=== PATIENT | male | born 1935 | race Caucasian/White ===

== ENCOUNTER 2020-12-03 09:25 | Inpatient (IN) | payer MEDICARE, SELFPAY ==
[2020-12-03] VITALS (10 sets, daily range): BP systolic 133–187; BP diastolic 61–84; PULSE 63–104; RESP 15–27; TEMP 36–38.8; O2SAT 91–100; BMI 20.1
--- NOTE | ~2020-12-03 | XR_ITS ---
EXAMINATION: XR CHEST CLINICAL INFORMATION: Cough. COMPARISON: None TECHNIQUE: Frontal view of the chest was obtained. FINDINGS: No significant abnormality is noted involving the heart, lungs, mediastinum, bony thorax or soft tissues. XR/XR chest 1V IMPRESSION: Unremarkable examination.
--- NOTE | ~2020-12-03 | XR_ITS ---
EXAMINATION: XR CHEST CLINICAL INFORMATION: Question pneumonia COMPARISON: Chest x-ray December 03, 2020 TECHNIQUE: Frontal view of the chest was obtained. FINDINGS: Cardiac silhouette is normal in size. The lungs are well aerated. There is no lobar consolidation. No pleural effusion or pneumothorax. XR/XR chest 1V IMPRESSION: Stable examination demonstrating no acute pulmonary pathology.
--- NOTE | 2020-12-03 09:34 | ECG_ITS ---
Test Reason : AMS Blood Pressure : / mmHG Vent. Rate : 100 BPM Atrial Rate : 100 BPM P-R Int : 180 ms QRS Dur : 096 ms QT Int : 336 ms P-R-T Axes : 070 068 048 degrees QTc Int : 433 ms Normal sinus rhythm Normal ECG No previous ECGs available Referred By: Edwin Bynum Electronically Signed By:VOLDOYMYR HA
--- NOTE | 2020-12-03 10:02 | ED_ITS ---
HPI - General Adult General Chief complaint: Fever Stated complaint: FALL NO INJURIES Time Seen by Provider: 12/03/20 09:54 History of Present Illness HPI narrative: THIS IS 85 YEARS OLD MALE FROM A NURSING FACILITY WITH HISTORY OF DEMENTIA SENT HERE FOR EVALUATION HE WAS FOUND FEBRILE ON ARRIVAL TO THE EMERGENCY DEPARTMENT PATIENT IS UNABLE TO GIVE ANY HISTORY BECAUSE OF THE DEMENTIA HISTORY WAS OBTAINED FROM THE GROUP HOME RECORD. THE GROUP HOME REPORTED TODAY WAS SLIDING OF THE WHEELCHAIR AND HE WAS FOUND TO BE HYPOXIC WELL Onset (ago): hour(s) (3) Radiation: non-radiation Severity: moderate Associated symptoms: malaise Related Data Home Medications Medication Instructions Recorded Confirmed Calcium + Vitamin D 600 mg PO 12/03/20 acetaminophen 650 mg PO Q6H PRN 12/03/20 12/03/20 amlodipine 7.5 mg PO DAILY 12/03/20 12/03/20 apixaban [Eliquis] 5 mg PO BID 12/03/20 12/03/20 atorvastatin [Lipitor] 40 mg PO BEDTIME 12/03/20 12/03/20 bisacodyl 10 mg CA DAILY PRN 12/03/20 12/03/20 docusate sodium [Colace] 100 mg PO DAILY 12/03/20 12/03/20 levetiracetam [Keppra] 500 mg PO BID 12/03/20 12/03/20 lisinopril 5 mg PO DAILY 12/03/20 12/03/20 magnesium hydroxide [Milk of 400 mg PO DAILY PRN 12/03/20 12/03/20 Magnesia] metoprolol tartrate 12.5 mg PO BID 12/03/20 12/03/20 oxcarbazepine 300 mg PO BID 12/03/20 12/03/20 quetiapine 25 mg PO BID 12/03/20 12/03/20 sodium phosphates [Fleet Enema] 118 ml CA DAILY PRN 12/03/20 12/03/20 trazodone 25 mg PO BEDTIME PRN 12/03/20 12/03/20 Allergies Allergy/AdvReac Type Severity Reaction Status Date / Time hydrochlorothiazide Allergy Unknown Verified 12/03/20 09:33 niacin Allergy Unknown Verified 12/03/20 09:33 nifedipine Allergy Unknown Verified 12/03/20 09:33 Review of Systems Review of Systems: Yes all other systems are reviewed and are negative Respiratory: Respiratory: Reports chest congestion and Reports cough Gastrointestinal: Gastrointestinal: Denies diarrhea, Denies loose stools and Denies nausea Neurologic: Reports system reviewed and no additional complaints, except as documented [facility] Past Medical History Medical History COPD (chronic obstructive pulmonary disease) Dementia Dysphagia Gout Hyperlipidemia Hypertension Hyponatremia Kidney disease Metabolic encephalopathy Social History Social History Advance Directives: Yes Advance Directives Information Provided: No Advance Directives on File: No Physical Exam Vital Signs: Vital Signs: Last Vital Signs Temp 100.0 F 12/03/20 11:49 Pulse 98 12/03/20 11:49 Resp 16 12/03/20 11:49 BP 164/80 H 12/03/20 11:49 Pulse Ox 96 12/03/20 11:49 Body Mass Index 20.1 Const: General: no acute distress HENMT: Head: Yes normal to inspection General nose exam: Normal external n ose present Mouth: other ( DRY ORAL MUCOSA NOTED) Neck: Neck: Yes normal visual inspection and Yes full ROM Chest: Chest palpation & inspection: normal inspection of the chest Resp: Auscultation: rhonchi Cardio: Jugular venous distension: no JVD Rate: regular rate Rhythm: regular rhythm Skin: Lesions: no lesions Rashes: no rashes Medical Decision Making Lab Data Result diagrams: 12/03/20 10:16 12/03/20 10:15 Labs: Lab Results 12/03/20 12/03/20 12/03/20 Range/Units 10:15 10:15 10:16 WBC 10.4 (4.8-10.8) X10*3/uL RBC 4.25 L (4.60-5.80) X10*6/uL Hgb 13.7 L (14.0-18.0) g/dl Hct 39.8 L (42-52) % MCV 93.6 (80-98) fL MCH 32.2 (27.0-33.0) pg MCHC 34.4 (31.0-36.0) g/dl RDW 14.3 (11.0-16.0) % Plt Count 228 (160-400) X10*3/uL MPV 9.8 (9.4-12.4) fL Immature Gran % (Auto) 0.4 (0.0-0.4) % Neut % (Auto) 87.5 H (45-73) % Lymph % (Auto) 5.0 L (20-40) % [place] % (Auto) 6.7 (2-11) % Eos % (Auto) 0.2 (0-4) % Baso % (Auto) 0.2 (0-2) % Lymph # (Auto) 0.5 L (1.2-4.9) X10*3/uL [place] # (Auto) 0.7 (0.1-1.2) X10*3/uL Eos # (Auto) 0.0 (0.0-0.4) X10*3/uL Baso # (Auto) 0.0 (0.0-0.2) X10*3/uL Abs Immat Gran (auto) 0.04 H (0.00-0.03) X10*3/uL Absolute Neuts (auto) 9.1 H (2.0-8.3) X10*3/uL Absolute Nucleated RBC 0.000 (0.0-0.012) X10*3/uL Nucleated RBC % (auto) 0.0 (0.0-0.2) /100WBC PT (9.9-13.0) SEC INR (0.9-1.1) Sodium 143 (135-145) mmol/L Potassium 3.8 (3.3-5.1) mmol/L Chloride 109 H (96-108) mmol/L Carbon Dioxide 23 (22-29) mmol/L Anion Gap 15 (12-20) BUN 30 H (9-16) mg/dL Creatinine 1.16 (0.5-1.4) mg/dL Estim Creat Clear Calc 42.1 Estimated GFR > 60 Random Glucose 136 H (60-115) mg/dL Lactic Acid 1.2 (0.5-2.0) mmol/L Calcium 9.2 (8.4-10.2) mg/dL Total Bilirubin 0.9 (0.0-1.0) mg/dL AST 16 (5-37) U/L ALT 14 (0-40) U/L Alkaline Phosphatase 76 (39-117) U/L Total Protein 6.8 (6.5-8.0) g/dL Albumin 4.0 (3.5-5.0) g/dL Urine Color Urine Appearance Urine pH (5.0-8.0) Ur Specific [place] (1.005-1.025) Urine Protein (NEG-TRACE) MG/DL Urine Glucose (UA) (NEG) MG/DL Urine Ketones (NEG) MG/DL Urine Blood (NEG) Urine Nitrite (NEG) Ur Leukocyte Esterase (NEG) Urine RBC (0) /HPF Urine WBC (0-4) /HPF Ur Squamous Epith Cells /LPF Urine Bacteria Urine Mucus /LPF 12/03/20 12/03/20 Range/Units 10:21 10:41 WBC (4.8-10.8) X10*3/uL RBC (4.60-5.80) X10*6/uL Hgb (14.0-18.0) g/dl Hct (42-52) % MCV (80-98) fL MCH (27.0-33.0) pg MCHC (31.0-36.0) g/dl RDW (11.0-16.0) % Plt Count (160-400) X10*3/uL MPV (9.4-12.4) fL Immature Gran % (Auto) (0.0-0.4) % Neut % (Auto) (45-73) % Lymph % (Auto) (20-40) % [place] % (Auto) (2-11) % Eos % (Auto) (0-4) % Baso % (Auto) (0-2) % Lymph # (Auto) (1.2-4.9) X10*3/uL [place] # (Auto) (0.1-1.2) X10*3/uL Eos # (Auto) (0.0-0.4) X10*3/uL Baso # (Auto) (0.0-0.2) X10*3/uL Abs Immat Gran (auto) (0.00-0.03) X10*3/uL Absolute Neuts (auto) (2.0-8.3) X10*3/uL Absolute Nucleated RBC (0.0-0.012) X10*3/uL Nucleated RBC % (auto) (0.0-0.2) /100WBC PT 18.8 H (9.9-13.0) SEC INR 1.6 H (0.9-1.1) Sodium (135-145) mmol/L Potassium (3.3-5.1) mmol/L Chloride (96-108) mmol/L Carbon Dioxide (22-29) mmol/L Anion Gap (12-20) BUN (9-16) mg/dL Creatinine (0.5-1.4) mg/dL Estim Creat Clear Calc Estimated GFR Random Glucose (60-115) mg/dL Lactic Acid (0.5-2.0) mmol/L Calcium (8.4-10.2) mg/dL Total Bilirubin (0.0-1.0) mg/dL AST (5-37) U/L ALT (0-40) U/L Alkaline Phosphatase (39-117) U/L Total Protein (6.5-8.0) g/dL Albumin (3.5-5.0) g/dL Urine Color YELLOW Urine Appearance CLEAR Urine pH 6.0 (5.0-8.0) Ur Specific [place] 1.025 (1.005-1.025) Urine Protein 2+ H (NEG-TRACE) MG/DL Urine Glucose (UA) NEG (NEG) MG/DL Urine Ketones NEG (NEG) MG/DL Urine Blood NEG (NEG) Urine Nitrite NEG (NEG) Ur Leukocyte Esterase NEG (NEG) Urine RBC 0 (0) /HPF Urine WBC 0-2 (0-4) /HPF Ur Squamous Epith Cells TRACE /LPF Urine Bacteria Not Reportable Urine Mucus 1+ /LPF Imaging Data Chest x-ray: Attestation: I personally reviewed and interpreted this imaging study as follows: My impression: NAD Discharge Plan Discharge Clinical Impression: Fever, Hypoxia Patient Disposition: Admitted As Inpatient
[2020-12-03 10:27] LABS: MANUAL DIFF FLAG NO
[2020-12-03 10:31] LABS: Basophils Percent Auto 0.2 % (0-2); Eosinophils Percent Auto 0.2 % (0-4); Hematocrit 39.8 % (42-52); Hemoglobin 13.7 g/dl (14.0-18.0); Imm Gran Abs Auto 0.04 X10*3/uL (0.00-0.03); Imm Gran Pct Auto 0.4 % (0.0-0.4); Lymphocytes Absolute Auto 0.5 X10*3/uL (1.2-4.9); Mean Corpuscular HGB Conc 34.4 g/dl (31.0-36.0); Mean Corpuscular Hemoglobin 32.2 pg (27.0-33.0); Mean Corpuscular Volume 93.6 fL (80-98); Mean Platelet Volume 9.8 fL (9.4-12.4); Monocytes Absolute Auto 0.7 X10*3/uL (0.1-1.2); Monocytes Percent Auto 6.7 % (2-11); Neutrophils Absolute Auto 9.1 X10*3/uL (2.0-8.3); Neutrophils Percent Auto 87.5 % (45-73); Platelet Count 228 X10*3/uL (160-400); Red Blood Count 4.25 X10*6/uL (4.60-5.80); Red Cell Distribution Width 14.3 % (11.0-16.0); White Blood Count 10.4 X10*3/uL (4.8-10.8)
[2020-12-03] MEDS: Acetaminophen Supp 650 MG SUPP.RECT PR (10:37)
[2020-12-03] MEDS: Piperacillin Sodium/Tazobactam 4.5 GM in 0.9 % Sodium Chloride 100 ML IV (10:38)
[2020-12-03] MEDS: 0.9 % Sodium Chloride 1,000 ML 999 ML IVCONT (10:43)
[2020-12-03 10:46] LABS: Lactic Acid 1.2 mmol/L (0.5-2.0)
[2020-12-03 10:47] LABS: Glucose Urine UA NEG (NEG); Leukocyte Esterase Urine NEG (NEG); Nitrite Urine NEG (NEG); Specific Gravity - Urine 1.025 (1.005-1.025); Urine Blood NEG (NEG); Urine Ketones NEG (NEG); Urine Protein 2+ MG/DL (NEG-TRACE)
[2020-12-03 10:50] LABS: INTERNATIONAL NORM RATIO 1.6 (0.9-1.1); Prothrombin Time 18.8 SEC (9.9-13.0)
[2020-12-03 10:51] LABS: Alanine Aminotransferase 14 U/L (0-40); Alkaline Phosphatase 76 U/L (39-117); Anion Gap 15 (12-20); Aspartate Amino Transferase 16 U/L (5-37); Bilirubin Total 0.9 mg/dL (0.0-1.0); Blood Urea Nitrogen 30 mg/dL (9-16); Calcium 9.2 mg/dL (8.4-10.2); Carbon Dioxide 23 mmol/L (22-29); Chloride 109 mmol/L (96-108); Creatinine Clr Calc Pharmacy 42.1; Estimated Glomerular Filt Rate > 60; Glucose Random 136 mg/dL (60-115); Potassium 3.8 mmol/L (3.3-5.1); Sodium 143 mmol/L (135-145); Total Protein 6.8 g/dL (6.5-8.0)
[2020-12-03 10:59] LABS: Appearance Urine CLEAR; Color Urine YELLOW
[2020-12-03 11:00] LABS: Mucus Urine 1+ /LPF; RBC Urine 0 /HPF (0); Squamous Epithelial Cell Urine TRACE /LPF; WBC Urine 0-2 /HPF (0-4)
--- NOTE | 2020-12-03 13:00 | P.HPHOSP_ITS ---
History of Present Illness Date of Service: 12/03/20 Chief Complaint: Fever, Hypoxia 85 year old male with advanced dementia, Hypertension, HLD, h/o Pulmonary embolism from senior living with DNR/DNi status on MOLST form. He was brought to the ED to be evaluted for hyoxia and fever. Patient himself is quite demented and is not able give any history. History obtained from ED rcords and half-way records. Patient upon coming to the ED was noted to have a fever of 101. O2 saturation was 91 on room. Work up has included negative CXR, WBC is normal. NO covid check. Patient has a wet cough. There is concern for pneumonia and therefore has been given antibiotics. O2 saturation is now 96% on room air Review of Systems Review of Systems: Yes Unobtainable due to mental status PMFSH Medical History Bradycardia COPD (chronic obstructive pulmonary disease) Dementia Dysphagia Gout History of pulmonary embolism Hyperlipidemia Hypertension Hyponatremia Kidney disease Metabolic encephalopathy Seizure Family history: reviewed and not pertinent Social History Advance Directives: Yes Advance Directives Information Provided: No Advance Directives on File: No Meds Allergies Allergy/AdvReac Type Severity Reaction Status Date / Time hydrochlorothiazide Allergy Unknown Verified 12/03/20 09:33 niacin Allergy Unknown Verified 12/03/20 09:33 nifedipine Allergy Unknown Verified 12/03/20 09:33 Active Medications: Current Medications Generic Name Dose Route Start Last Admin Trade Name Freq PRN Reason Stop Dose Admin Acetaminophen 650 mg 12/03/20 12:55 Acetaminophen Supp 650 Mg Supp.Rect DE Q6H PRN Pain, Mild (Pain Scale 1-3) Dextrose/Sodium Chloride 1,000 mls @ 100 mls/hr 12/03/20 13:00 D51/2ns IVCONT .Q10H SANDY Sodium Chloride 3 ml 12/03/20 16:00 0.9 % Sodium Chloride Flush 3 Ml Syringe IVFLUSH QSHIFT [facility] Home Medications Medication Instructions Recorded Confirmed Last Taken Type Calcium + Vitamin D 600 mg PO 12/03/20 Unknown History acetaminophen 650 mg PO Q6H PRN 12/03/20 12/03/20 Unknown History amlodipine 7.5 mg PO DAILY 12/03/20 12/03/20 Unknown History apixaban [Eliquis] 5 mg PO BID 12/03/20 12/03/20 Unknown History atorvastatin [Lipitor] 40 mg PO BEDTIME 12/03/20 12/03/20 Unknown History bisacodyl 10 mg DE DAILY PRN 12/03/20 12/03/20 Unknown History docusate sodium [Colace] 100 mg PO DAILY 12/03/20 12/03/20 Unknown History levetiracetam [Keppra] 500 mg PO BID 12/03/20 12/03/20 Unknown History lisinopril 5 mg PO DAILY 12/03/20 12/03/20 Unknown History magnesium hydroxide [Milk of 400 mg PO DAILY PRN 12/03/20 12/03/20 Unknown History Magnesia] metoprolol tartrate 12.5 mg PO BID 12/03/20 12/03/20 Unknown History oxcarbazepine 300 mg PO BID 12/03/20 12/03/20 Unknown History quetiapine 25 mg PO BID 12/03/20 12/03/20 Unknown History sodium phosphates [Fleet Enema] 118 ml DE DAILY PRN 12/03/20 12/03/20 Unknown History trazodone 25 mg PO BEDTIME PRN 12/03/20 12/03/20 Unknown History Physical Exam Vital Signs and Narrative: Vital Signs: Last Vital Signs Temp 100.0 F 12/03/20 11:49 Pulse 98 12/03/20 11:49 Resp 16 12/03/20 11:49 BP 164/80 H 12/03/20 11:49 Pulse Ox 96 12/03/20 11:49 Body Mass Index 20.1 Const: Other: Constitutional Awake and Alert, some how agitated, figity, pulling on things HEENT normal eye movement, no sclera icteris Neck Supple, No lymphadenopathy Cardiovascular RRR, No M/R/G, S1 S2, No S3 S4, No pedal edema Respiratory some rhonchi jonny otherwise clear, normal respiratory effor, occosionally with wet sounding cough Gastrointestinal Non tender, Non-distended Skin No rash, has a lipoma on the back HEENT/ONc no adenopathy Neurological totally confused Psychological flat affect Results Labs CBC and Chem 7: 12/03/20 10:16 12/03/20 10:15 Labs: Laboratory Results - last 24 hr 12/03/20 12/03/20 12/03/20 10:15 10:15 10:16 MCV 93.6 MCH 32.2 MCHC 34.4 RDW 14.3 Plt Count 228 MPV 9.8 Immature Gran % (Auto) 0.4 Neut % (Auto) 87.5 H Lymph % (Auto) 5.0 L [place] % (Auto) 6.7 Eos % (Auto) 0.2 Baso % (Auto) 0.2 Lymph # (Auto) 0.5 L [place] # (Auto) 0.7 Eos # (Auto) 0.0 Baso # (Auto) 0.0 Abs Immat Gran (auto) 0.04 H Absolute Neuts (auto) 9.1 H Absolute Nucleated RBC 0.000 Nucleated RBC % (auto) 0.0 PT INR Anion Gap 15 Estim Creat Clear Calc 42.1 Estimated GFR > 60 Random Glucose 136 H Lactic Acid 1.2 Calcium 9.2 Total Bilirubin 0.9 AST 16 ALT 14 Alkaline Phosphatase 76 Total Protein 6.8 Albumin 4.0 Urine Color Urine Appearance Urine pH Ur Specific [place] Urine Protein Urine Glucose (UA) Urine Ketones Urine Blood Urine Nitrite Ur Leukocyte Esterase Urine RBC Urine WBC Ur Squamous Epith Cells Urine Bacteria Urine Mucus 12/03/20 12/03/20 10:21 10:41 MCV MCH MCHC RDW Plt Count MPV Immature Gran % (Auto) Neut % (Auto) Lymph % (Auto) [place] % (Auto) Eos % (Auto) Baso % (Auto) Lymph # (Auto) [place] # (Auto) Eos # (Auto) Baso # (Auto) Abs Immat Gran (auto) Absolute Neuts (auto) Absolute Nucleated RBC Nucleated RBC % (auto) PT 18.8 H INR 1.6 H Anion Gap Estim Creat Clear Calc Estimated GFR Random Glucose Lactic Acid Calcium Total Bilirubin AST ALT Alkaline Phosphatase Total Protein Albumin Urine Color YELLOW Urine Appearance CLEAR Urine pH 6.0 Ur Specific [place] 1.025 Urine Protein 2+ H Urine Glucose (UA) NEG Urine Ketones NEG Urine Blood NEG Urine Nitrite NEG Ur Leukocyte Esterase NEG Urine RBC 0 Urine WBC 0-2 Ur Squamous Epith Cells TRACE Urine Bacteria Not Reportable Urine Mucus 1+ Imaging Radiologist's Impressions: Impressions Chest X-Ray 12/03/20 10:00 IMPRESSION: Unremarkable examination. Assessment and Plan (1) Fever: Status: Acute (2) Hypoxia: Status: Acute (3) Pneumonia: Status: Acute (4) Acute respiratory failure with hypoxia: Status: Acute 85 year male with advanced dementia, h/o of PE on Eliquis presented with hypOxia, fever, and seem delirious 1/ Fever/Hypoxia, negative CXR, there is still concern for pneumonia, likely aspiration type. Will continue antibiotics, Hydrate and repeat CXR. TEST FOR COVID. Obtain sputum sample if feasible 2/Delirium on top of dementia d/t above--Monitor, if needed if try to get out of bed or injur self will need sitter, at minimum monitor camera 3/HTN--continue outside meds per med rec 4/ history of PE--continue Eliquis 5/history of Seizure d/o continue Keppra 6/ HLD--statin 8/Dementi, behavior issues--continue Trazadone and Seroquel DVT prophylaxis--Reinier, CODE: DNR/DNI, MOLST in chart Quality Stroke Does the patient have a stroke diagnosis?: No VTE Prior VTE?: No VTE Risk Level:: Medical - moderate - high VTE Device Contraindication: N/A - Device Ordered VTE Drug Contraindication: N/A - Med Ordered
[2020-12-03 14:09] LABS: COVID-19 Test Negative (Negative)
[2020-12-03] MEDS: Dextrose 5 % and 0.45 % NaCl 1,000 ML 100 ML IVCONT (14:23)
--- NOTE | 2020-12-03 14:27 | MHC.CM.PN ---
PER CONVERSATION WITH , ANDREW AND SON, MOUNIKA ([phone]) PATIENT IS LTC AT [facility]. PLAN IS FOR PATIENT TO RETURN. NO HCP ON FILE OR IN CHART FROM [facility]. SON STATES THAT [facility] HAS THE COPY AND ONE IS NOW REQUESTED. IMM DISCUSSED AND ORIGINAL LEFT IN ROOM ALONG WITH CONTACT CARD FOR CASE MANAGEMENT. PER CONVERSATION, PATIENT WAS RECENTLY AT [facility] FOR SIMILAR PRESENTATION. CASE MANAGEMENT FOLLOWING. IMM 12/03 IN CHART
[2020-12-03] MEDS: Metoprolol Tartrate 12.5 MG HALFTAB PO (21:12)
[2020-12-03] MEDS: levETIRAcetam 500 MG TABLET PO (21:13)
[2020-12-03] MEDS: Atorvastatin Calcium 40 MG TABLET PO (21:13)
[2020-12-03] MEDS: QUEtiapine Fumarate 25 MG TABLET PO (21:13)
[2020-12-03] MEDS: Apixaban 5 MG TABLET PO (21:13)
[2020-12-03] MEDS: OXcarbazepine 300 MG TABLET PO (21:13)
[2020-12-04] MEDS: Dextrose 5 % and 0.45 % NaCl 1,000 ML 100 ML IVCONT (01:47)
[2020-12-04 04:08] VITALS: BP 163/68; PULSE 76; RESP 16; TEMP 36.9; O2SAT 95
[2020-12-04 07:24] VITALS: BP 147/69; PULSE 69; RESP 17; TEMP 36.7; O2SAT 96
[2020-12-04 07:25] LABS: Anion Gap 10 (12-20); Blood Urea Nitrogen 23 mg/dL (9-16); Calcium 8.5 mg/dL (8.4-10.2); Carbon Dioxide 23 mmol/L (22-29); Chloride 110 mmol/L (96-108); Creatinine Clr Calc Pharmacy 50.9; Estimated Glomerular Filt Rate > 60; Glucose Random 116 mg/dL (60-115); Potassium 3.4 mmol/L (3.3-5.1); Sodium 140 mmol/L (135-145)
[2020-12-04] MEDS: Piperacillin Sodium/Tazobactam 3.375 GM in 0.9 % Sodium Chloride 50 ML IV ×2 (08:13→14:03)
[2020-12-04] MEDS: Apixaban 5 MG TABLET PO (08:20)
[2020-12-04] MEDS: amLODIPine Besylate 2.5 MG TABLET 7.5 MG PO (08:20)
[2020-12-04] MEDS: QUEtiapine Fumarate 25 MG TABLET PO (08:20)
[2020-12-04] MEDS: OXcarbazepine 300 MG TABLET PO (08:20)
[2020-12-04] MEDS: levETIRAcetam 500 MG TABLET PO (08:20)
[2020-12-04] MEDS: lisinopriL 5 MG TABLET PO (08:21)
[2020-12-04] MEDS: Metoprolol Tartrate 12.5 MG HALFTAB PO (08:21)
--- NOTE | 2020-12-04 12:45 | P.PNIM_ITS ---
Subjective Subjective Date of Service: 12/04/20 Physical Exam Vital Signs: Vital Signs: Last Vital Signs Temp 98.0 F 12/04/20 07:24 Pulse 69 12/04/20 07:24 Resp 17 12/04/20 07:24 BP 147/69 H 12/04/20 07:24 Pulse Ox 96 12/04/20 07:24 Body Mass Index 20.1 Objective Data Current Medications Generic Name Dose Route Start Last Admin Trade Name Freq PRN Reason Stop Dose Admin Acetaminophen 650 mg 12/03/20 12:55 Acetaminophen Supp 650 Mg Supp.Rect NV Q6H PRN Pain, Mild (Pain Scale 1-3) Acetaminophen 650 mg 12/03/20 13:06 Acetaminophen 325 Mg Tablet PO Q6H PRN Pain Amlodipine Besylate 7.5 mg 12/04/20 09:00 12/04/20 08:20 Amlodipine Besylate 2.5 Mg Tablet PO 7.5 mg DAILY SANDY Administration Protocol Apixaban 5 mg 12/03/20 21:00 12/04/20 08:20 Apixaban 5 Mg Tablet PO 5 mg BID SANDY Administration Atorvastatin Calcium 40 mg 12/03/20 21:00 12/03/20 21:13 Atorvastatin Calcium 40 Mg Tablet PO 40 mg BEDTIME SANDY Administration Bisacodyl 10 mg 12/03/20 13:06 Bisacodyl 10 Mg Supp.Rect NV DAILY PRN Constipation Docusate Sodium 100 mg 12/04/20 09:00 12/04/20 08:27 Docusate Sodium 100 Mg Capsule PO Not Given DAILY SANDY Dextrose/Sodium Chloride 1,000 mls @ 100 mls/hr 12/03/20 13:00 12/04/20 01:47 D51/2ns IVCONT 100 mls/hr .Q10H SANDY Administration Piperacillin Sod/Tazobactam 50 mls @ 100 mls/hr 12/04/20 09:00 12/04/20 09:18 Sod 3.375 gm/ Sodium Chloride IV Infused Q6H SANDY Infusion Levetiracetam 500 mg 12/03/20 21:00 12/04/20 08:20 Levetiracetam 500 Mg Tablet PO 500 mg BID SANDY Administration Lisinopril 5 mg 12/04/20 09:00 12/04/20 08:21 Lisinopril 5 Mg Tablet PO 5 mg DAILY SANDY Administration Protocol Magnesium Hydroxide 30 ml 12/03/20 13:06 Milk Of Magnesia 30 Ml Oral.Susp PO DAILY PRN Constipation Metoprolol Tartrate 12.5 mg 12/03/20 21:00 12/04/20 08:21 Metoprolol Tartrate 12.5 Mg Halftab PO 12.5 mg BID ASNDY Administration Protocol Oxcarbazepine 300 mg 12/03/20 21:00 12/04/20 08:20 Oxcarbazepine 300 Mg Tablet PO 300 mg BID SANDY Administration Quetiapine Fumarate 25 mg 12/03/20 21:00 12/04/20 08:20 Quetiapine Fumarate 25 Mg Tablet PO 25 mg BID SANDY Administration Sodium Biphosphate/Sodium Phosphate 118 ml 12/03/20 13:06 Sodium Phosphate,[place]-Dibasic 133 Ml Enema [place] DAILY PRN Constipation Sodium Chloride 3 ml 12/03/20 16:00 12/04/20 08:07 0.9 % Sodium Chloride Flush 3 Ml Syringe IVFLUSH Not Given QSHIFT SANDY Trazodone HCl 25 mg 12/03/20 13:06 Trazodone Hcl 25 Mg Halftab PO BEDTIME PRN Sleep Labs CBC & Chem 7: 12/03/20 10:16 12/04/20 06:25 Labs: Laboratory Results - last 24 hr 12/03/20 12/04/20 13:45 06:25 Anion Gap 10 L Estim Creat Clear Calc 50.9 Estimated GFR > 60 Random Glucose 116 H Calcium 8.5 D COVID-19 (REZA) Negative COVID-19 Clin Com See Note Microbiology Microbiology Results: Microbiology 12/03/20 10:21 Blood - Venous Blood Culture - Preliminary No growth after 24 hours. 12/03/20 10:15 Blood - Venous Blood Culture - Preliminary No growth after 24 hours. Progress Note: A&P (1) Acute respiratory failure with hypoxia: Status: Acute Assessment and Plan: 85 year male with advanced dementia, h/o of PE on Eliquis presented with hypOxia, fever, and seem delirious 1/ Fever/Hypoxia, negative CXR, there is still concern for pneumonia, likely aspiration type. Will continue antibiotics, Hydrate and repeat CXR. TEST FOR COVID. Obtain sputum sample if feasible 2/Delirium on top of dementia d/t above--Monitor, if needed if try to get out of bed or injur self will need sitter, at minimum monitor camera 3/HTN--continue outside meds per med rec 4/ history of PE--continue Eliquis 5/history of Seizure d/o continue Keppra 6/ HLD--statin 8/Dementi, behavior issues--continue Trazadone and Seroquel DVT prophylaxis--Reniier, CODE: DNR/DNIKAN in chart Quality Stroke Does the patient have a stroke diagnosis?: No VTE Prior VTE?: No VTE Risk Level:: Medical - moderate - high VTE Device Contraindication: N/A - Device Ordered VTE Drug Contraindication: N/A - Med Ordered
--- NOTE | 2020-12-04 13:32 | MHC.CM.PN ---
PER CONVERSATION WITH 2ND FLOOR RNJEAN-PAUL ([phone]) PATIENT CAN RETURN TODAY. AMBULANCE TO BE SCHEDULED FOR 1600. RN MADE AWARE. THIS COUNTY COMMISSIONER TO CONTACT FAMILY
--- NOTE | 2020-12-04 13:46 | MHC.INPTTRAN ---
Has been afebrile. No c/o pain. Sid diet. Assisted with meals. No diff swallowing. Received IVF and A/B here. Takes med with applesasuce. Ambulates short distances with min assist. Voiding. Had BM today x2 CXR today, shows nothing acute. thanks.
--- NOTE | 2020-12-04 14:25 | MHC.CM.PN ---
PATIENT HAS BEEN VACCINATED WITH [employer] COVID VACCINE (BOTH DOSES) AT [facility].
--- NOTE | 2020-12-04 15:22 | PM.DS ---
DS: Providers Provider Date of Service: 12/04/20 <Lilly Kennedy NP - Last Filed: 12/04/20 15:45> Date of admission: 12/03/20 12:56 <Lilly Kennedy NP - Last Filed: 12/04/20 15:45> Date of discharge: 12/04/20 <Lilly Kennedy NP - Last Filed: 12/04/20 15:45> Primary care physician: AMARILIS MATHEW <Lilly Kennedy NP - Last Filed: 12/04/20 15:45> Admitting clinician: Bobby Villalobos <Lilly Kennedy NP - Last Filed: 12/04/20 15:45> Attending physician on admission: Bobby Villalobos <Lilly Kennedy NP - Last Filed: 12/04/20 15:45> Attending physician on discharge: Bobby Villalobos <Lilly Kennedy NP - Last Filed: 12/04/20 15:45> Discharging clinician: Lilly Kennedy <Lilly Kennedy NP - Last Filed: 12/04/20 15:45> DS: Diagnosis Discharge Diagnosis (1) Acute respiratory failure with hypoxia: Status: Resolved <Lilly Kennedy NP - Last Filed: 12/04/20 15:45> (2) Pneumonia: Status: Acute <Lilly Kennedy NP - Last Filed: 12/04/20 15:45> DS: Medications Discharge Medications Home Medications: Home Medications Medication Instructions Recorded Confirmed Calcium + Vitamin D 600 mg PO DAILY 12/03/20 12/03/20 Eliquis 5 mg PO BID 12/03/20 12/03/20 Fleet Enema 118 ml [place] DAILY PRN 12/03/20 12/03/20 acetaminophen 650 mg PO Q6H PRN 12/03/20 12/03/20 amlodipine 7.5 mg PO DAILY 12/03/20 12/03/20 atorvastatin [Lipitor] 40 mg PO BEDTIME 12/03/20 12/03/20 bisacodyl 10 mg [place] DAILY PRN 12/03/20 12/03/20 docusate sodium [Colace] 100 mg PO DAILY 12/03/20 12/03/20 levetiracetam [Keppra] 500 mg PO BID 12/03/20 12/03/20 lisinopril 5 mg PO DAILY 12/03/20 12/03/20 magnesium hydroxide [Milk of 400 mg PO DAILY PRN 12/03/20 12/03/20 Magnesia] metoprolol tartrate 12.5 mg PO BID 12/03/20 12/03/20 oxcarbazepine 300 mg PO BID 12/03/20 12/03/20 quetiapine 25 mg PO BID 12/03/20 12/03/20 trazodone 25 mg PO BEDTIME PRN 12/03/20 12/03/20 Previous Rx's Medication Instructions Recorded amoxicillin-pot clavulanate 1 tab PO BID #14 tab 12/04/20 [Augmentin] <Lilly Kennedy NP - Last Filed: 12/04/20 15:45> DS: Summary Hospital Course Hospital Course: HP as per admitting provider 85 year old male with advanced dementia, Hypertension, HLD, h/o Pulmonary embolism from [facility] with DNR/DNi status on MOLST form. He was brought to the ED to be evaluted for hyoxia and fever. Patient himself is quite demented and is not able give any history. History obtained from ED rcords and intermediate records. Patient upon coming to the ED was noted to have a fever of 101. O2 saturation was 91 on room. Work up has included negative CXR, WBC is normal. NO covid check. Patient has a wet cough. There is concern for pneumonia and therefore has been given antibiotics. O2 saturation is now 96% on room air Acute hypoxic respiratory failure likelysecondary to aspiration pneumonia. Initially presented with fever and hypoxia. He was also noted to be delirious. His delirium was likely related to infection . He was treated with IV zosyn. His hypoxia improved and he was weaned off of oxygen. He will continue Augmentin for 7 days. He will be transferred back to LTC facility. <Lilly Kennedy NP - Last Filed: 12/04/20 15:45> Time Spent with Patient Time attestation: Total time spent providing and/or coordinating discharge services: <Lilly Kennedy NP - Last Filed: 12/04/20 15:45> Discharge coordination time: Greater than 30 minutes <Lilly Kennedy NP - Last Filed: 12/04/20 15:45> Quality: Stroke Does the patient have a stroke diagnosis?: No <Lilly Kennedy NP - Last Filed: 12/04/20 15:45> Physical Exam Vital Signs: Vital Signs: Last Vital Signs Temp 98.0 F 12/04/20 07:24 Pulse 69 12/04/20 07:24 Resp 17 12/04/20 07:24 BP 147/69 H 12/04/20 07:24 Pulse Ox 96 12/04/20 07:24 Body Mass Index 20.1 <Lilly Kennedy NP - Last Filed: 12/04/20 15:45> Appearing in no acute distress head is normocephalic atraumatic eyes pupils are PERRLA sclera is anicteric mouth throat mucous membranes are intact and moist neck is supple no lymphadenopathy, no JVD noted lung sounds are clear to auscultation heart regular rate rhythm, clear S1, S2 positive bowel sounds, abdomen is soft, nontender neuro patient is alert, confused <Lilly Kennedy NP - Last Filed: 12/04/20 15:45> DS: Data Data Completed and Pending Labs on day of discharge: Laboratory Results - last 24 hr 12/04/20 06:25 Sodium 140 Potassium 3.4 Chloride 110 H Carbon Dioxide 23 Anion Gap 10 L BUN 23 H Creatinine 0.96 Estim Creat Clear Calc 50.9 Estimated GFR > 60 Random Glucose 116 H Calcium 8.5 D Preliminary micro results at discharge 12/03/20 10:21 Blood Culture - Preliminary Blood - Venous No growth after 24 hours. 12/03/20 10:15 Blood Culture - Preliminary Blood - Venous No growth after 24 hours. <Lilly Kennedy NP - Last Filed: 12/04/20 15:45> Discharge Plan Discharge Anticipated Discharge Date/Time: 12/04/20 15:12 <Lilly Kennedy NP - Last Filed: 12/04/20 15:45> Patient Disposition: Xfer SNF <Lilly Kennedy NP - Last Filed: 12/04/20 15:45> Discharge Diagnosis: acute hypoxic respiratory failure aspiration pneumonia delirium <Lilly Kennedy NP - Last Filed: 12/04/20 15:45> acute hypoxic respiratory failure aspiration pneumonia delirium <Bobby Villalobos MD - Last Filed: 12/19/20 15:32> Referrals: Leyla Sanz [Outside] - 1 Week AMARILIS MATHEW [Primary Care Provider] - 1 Week <Lilly Kennedy NP - Last Filed: 12/04/20 15:45> Discharge Medications: New amoxicillin-pot clavulanate [Augmentin] 875-125 mg tablet 1 tab PO BID Qty: 14 RF: 0 Continued amlodipine 5 mg Tablet 7.5 mg PO DAILY RF: 0 quetiapine 25 mg Tablet 25 mg PO BID RF: 0 atorvastatin [Lipitor] 40 mg Tablet 40 mg PO BEDTIME RF: 0 acetaminophen 325 mg Tablet 650 mg PO Q6H PRN (Reason: Pain) RF: 0 trazodone 50 mg Tablet 25 mg PO BEDTIME PRN (Reason: Sleep) RF: 0 levetiracetam [Keppra] 500 mg Tablet 500 mg PO BID RF: 0 oxcarbazepine 300 mg Tablet 300 mg PO BID RF: 0 magnesium hydroxide [Milk of Magnesia] 400 mg/5 mL Suspension 400 mg PO DAILY PRN (Reason: Constipation) RF: 0 bisacodyl 10 mg Suppository 10 mg FL DAILY PRN (Reason: Constipation) RF: 0 Fleet Enema 19-7 gram/118 mL Enema 118 ml FL DAILY PRN (Reason: Constipation) RF: 0 docusate sodium [Colace] 100 mg Capsule 100 mg PO DAILY RF: 0 lisinopril 5 mg Tablet 5 mg PO DAILY RF: 0 metoprolol tartrate 25 mg Tablet 12.5 mg PO BID RF: 0 Eliquis 5 mg Tablet 5 mg PO BID RF: 0 Calcium + Vitamin D tablet 600 mg PO DAILY RF: 0 <Lilly Kennedy NP - Last Filed: 12/04/20 15:45> Discharge Orders: Discharge Order (Routine); Ordered 12/04/20 Ordered By: Lilly Kennedy <Lilly Kennedy NP - Last Filed: 12/04/20 15:45> Diet: advance to usual diet <Lilly Kennedy NP - Last Filed: 12/04/20 15:45> advance to usual diet <Bobby Villalobos MD - Last Filed: 12/19/20 15:32> Activity on Discharge: As tolerated <Lilly Kennedy NP - Last Filed: 12/04/20 15:45> As tolerated <Bobby Villalobos MD - Last Filed: 12/19/20 15:32> Stand Alone Forms: Patient Portal Discharge page <Lilly Kennedy NP - Last Filed: 12/04/20 15:45> Care Plan Goals: resolution of pneumonia symptoms <Lilly Kennedy NP - Last Filed: 12/04/20 15:45> Health Concerns: acute hypoxic respiratory failure delirium aspiration pneumonia <Lilly Kennedy NP - Last Filed: 12/04/20 15:45> Plan of Treatment: Augmentin twice daily for 7 days Follow up with PCP as needed <Lilly Kennedy NP - Last Filed: 12/04/20 15:45> Assessment: see discharge summary I saw and examined patient and discussed finding, assessment, plan and disposition with mae and a I agree with the above, except as otherwise stated <Lilly Kennedy NP - Last Filed: 12/04/20 15:45> Discharge Date/Time: 12/04/20 16:15 <Lilly Kennedy NP - Last Filed: 12/04/20 15:45>
== END 2020-12-04 16:15 | disposition skilled nursing facility (03) | DRG 177 ==
LOC: HO.ED 12:15 → HO.EDOVER 13:08 → HO.S3 13:33
PROVIDERS: Admitting Provider Internal Medicine; Emergency Provider Emergency Medicine; PCP Emergency Medicine; Visit Provider Internal Medicine
DX: J69.0 Pneumonitis due to inhalation of food and vomit (principal); J96.01 Acute respiratory failure with hypoxia; F05 Delirium due to known physiological condition; F03.90 Unspecified dementia, unspecified severity, without behavioral disturbance, psychotic disturbance, mood disturbance, and anxiety; I10 Essential (primary) hypertension; G40.909 Epilepsy, unspecified, not intractable, without status epilepticus; E78.5 Hyperlipidemia, unspecified; Z86.711 Personal history of pulmonary embolism; Z20.822 Contact with and (suspected) exposure to COVID-19; Z79.01 Long term (current) use of anticoagulants; Z79.899 Other long term (current) drug therapy; Z66 Do not resuscitate
CPT/HCPCS: 36415; 71045; 80048; 80053; 81001; 83605; 85025; 85610; 87040; 87635; 93005; 99285; J2543

== ENCOUNTER 2021-06-01 21:46 | Emergency (ER) | payer MEDICARE, BC, SELFPAY ==
--- NOTE | ~2021-06-01 | XR_ITS ---
EXAMINATION: XR CHEST CLINICAL INFORMATION: Fever COMPARISON: 12/04/2020 TECHNIQUE: Frontal view of the chest was obtained. FINDINGS: Chronic coarse interstitial markings.. No focal consolidation or mass. Normal pulmonary vascularity. No pleural effusion or pneumothorax. Normal heart size. Calcified aortic arch. XR/XR chest 1V IMPRESSION: No acute pulmonary disease. No significant change from prior study.
--- NOTE | 2021-06-01 22:05 | ED_ITS ---
HPI - General Adult General Chief complaint: Nausea/Vomiting/Diarrhea Stated complaint: LETHARGY DIHARREHA Time Seen by Provider: 06/01/21 21:55 Source: EMS Mode of arrival: EMS Limitations: other (Advanced dementia) History of Present Illness HPI narrative: Patient is coming from [facility] by EMS. The staff reports that the patient has been more confused than usual although patient has chronic dementia and chronic altered mental status. Patient has been having watery diarrhea for 24 hours. Patient has advanced dementia and is unable to give any significant history Related Data Home Medications Medication Instructions Recorded Confirmed Calcium + Vitamin D 600 mg PO DAILY 12/03/20 12/03/20 acetaminophen 325 mg tablet 650 mg PO Q6H PRN 12/03/20 12/03/20 amlodipine 5 mg tablet 7.5 mg PO DAILY 12/03/20 12/03/20 apixaban 5 mg tablet (Eliquis) 5 mg PO BID 12/03/20 12/03/20 atorvastatin 40 mg tablet (Lipitor) 40 mg PO BEDTIME 12/03/20 12/03/20 bisacodyl 10 mg rectal suppository 10 mg [place] DAILY PRN 12/03/20 12/03/20 docusate sodium 100 mg capsule 100 mg PO DAILY 12/03/20 12/03/20 (Colace) levetiracetam 500 mg tablet 500 mg PO BID 12/03/20 12/03/20 (Keppra) lisinopril 5 mg tablet 5 mg PO DAILY 12/03/20 12/03/20 magnesium hydroxide 400 mg/5 mL 400 mg PO DAILY PRN 12/03/20 12/03/20 oral suspension (Milk of Magnesia) metoprolol tartrate 25 mg tablet 12.5 mg PO BID 12/03/20 12/03/20 oxcarbazepine 300 mg tablet 300 mg PO BID 12/03/20 12/03/20 quetiapine 25 mg tablet 25 mg PO BEDTIME 12/03/20 12/03/20 sodium phosphates 19 gram-7 118 ml [place] DAILY PRN 12/03/20 12/03/20 gram/118 mL enema (Fleet Enema) trazodone 50 mg tablet 25 mg PO BEDTIME PRN 12/03/20 12/03/20 allopurinol 100 mg tablet 2 tab PO DAILY 06/01/21 apixaban 5 mg tablet (Eliquis) 1 tab PO BID 06/01/21 Previous Rx's Medication Instructions Recorded loperamide 2 mg capsule 2 mg PO Q4H PRN #14 cap 06/02/21 Allergies Allergy/AdvReac Type Severity Reaction Status Date / Time hydrochlorothiazide Allergy Unknown Verified 12/03/20 09:33 niacin Allergy Unknown Verified 12/03/20 09:33 nifedipine Allergy Unknown Verified 12/03/20 09:33 Review of Systems Review of Systems: Yes Unobtainable due to mental condition [facility] Past Medical History Medical History Bradycardia COPD (chronic obstructive pulmonary disease) Dementia Dysphagia Gout History of pulmonary embolism Hyperlipidemia Hypertension Hyponatremia Kidney disease Metabolic encephalopathy Seizure Social History Social History Household Members: None Housing: [facility] Do you presently have visiting nurse or other home services: No Unable to assess alcohol history related to: Unknown Patient Tobacco Use Status: Tobacco use Unknown Advance Directives: Yes Advance Directives on File: Yes Advance Directives Date on File: 12/03/20 Current occupational status: retired Physical Exam Vital Signs: Vital Signs: Last Vital Signs Temp 100.4 F 06/02/21 00:35 Pulse 109 H 06/02/21 00:35 Resp 33 H 06/02/21 00:35 BP 152/88 H 06/02/21 00:35 Pulse Ox 97 06/02/21 00:35 BMI result Body Mass Index 20.2 Const: Other: Appearance: Alert. No acute distress. Unable to give any history Eyes: Pupils equal, round and reactive to light. ENT: Pharynx normal. Neck: Normal inspection. Neck supple. No lymph nodes noted. No crepitus CVS: Normal heart rate and rhythm. Pulses normal. Normal S1 and S2 Respiratory: No respiratory distress. Breath sounds normal. No Wheezing. No rales Abdomen: Soft and nontender. No rigidity. No distention. good BS x4 Skin: Skin warm and clammy. Normal skin color. Normal skin turgor. Extremities: No lower extremity edema. Neuro: Patient has advanced dementia, unable to follow any commands, cranial nerves 2-12 grossly intact Course Course Course Narrative: Patient's lactic acid elevation likely secondary to dehydration, sepsis not suspected. Resolved with 2 L of normal saline. Given oral loperamide. Medical Decision Making Lab Data Result diagrams: 06/01/21 22:40 06/02/21 01:28 Labs: Lab Results 06/01/21 06/01/21 06/01/21 Range/Units 22:39 22:40 22:40 WBC 7.4 (4.8-10.8) X10*3/uL RBC 4.71 (4.60-5.80) X10*6/uL Hgb 15.1 (14.0-18.0) g/dl Hct 44.5 (42.0-52.0) % MCV 94.5 (80.0-98.0) fL MCH 32.1 (27.0-33.0) pg MCHC 33.9 (31.0-36.0) g/dl RDW 14.6 (11.0-16.0) % Plt Count 201 (160-400) X10*3/uL MPV 9.6 (9.4-12.4) fL Immature Gran % (Auto) 0.3 (0.0-0.4) % Neut % (Auto) 92.6 H (45-73) % Lymph % (Auto) 2.2 L (20-40) % [place] % (Auto) 4.1 (2-11) % Eos % (Auto) 0.5 (0-4) % Baso % (Auto) 0.3 (0-2) % Lymph # (Auto) 0.2 L (1.2-4.9) X10*3/uL [place] # (Auto) 0.3 (0.1-1.2) X10*3/uL Eos # (Auto) 0.0 (0.0-0.4) X10*3/uL Baso # (Auto) 0.0 (0.0-0.2) X10*3/uL Abs Immat Gran (auto) 0.02 (0.00-0.03) X10*3/uL Absolute Neuts (auto) 6.9 (2.0-8.3) x10*3/uL Absolute Nucleated RBC 0.000 (0.0-0.012) X10*3/uL Nucleated RBC % (auto) 0.0 (0.0-0.2) /100WBC Smear Tech's Comments VERIFIED PT 14.3 H (9.9-13.0) SEC INR 1.3 H (0.9-1.1) Coag Specimen Comment DELAY Sodium (135-145) mmol/L Potassium (3.3-5.1) mmol/L Chloride (96-108) mmol/L Carbon Dioxide (22-29) mmol/L Anion Gap (12-20) BUN (9-16) mg/dL Creatinine (0.5-1.4) mg/dL Estim Creat Clear Calc Estimated GFR Random Glucose (60-115) mg/dL Lactic Acid (0.5-2.0) mmol/L Lactic Acid F/U @ 2Hr (0.5-2.0) mmol/L Calcium (8.4-10.2) mg/dL Total Bilirubin (0.0-1.0) mg/dL Direct Bilirubin (0.0-0.5) mg/dL AST (5-37) U/L ALT (0-40) U/L Alkaline Phosphatase (39-117) U/L Total Protein (6.5-8.0) g/dL Albumin (3.5-5.0) g/dL Urine Color YELLOW Urine Appearance CLEAR Urine pH 6.0 (5.0-8.0) Ur Specific [place] 1.025 (1.005-1.025) Urine Protein 2+ H (NEG-TRACE) MG/DL Urine Glucose (UA) NEG (NEG) MG/DL Urine Ketones 15 (NEG) MG/DL Urine Blood NEG (NEG) Urine Nitrite NEG (NEG) Ur Leukocyte Esterase NEG (NEG) Urine RBC 1-4 (0) /HPF Urine WBC 0 (0-4) /HPF Ur Squamous Epith Cells 1+ /LPF Ur Renal Epithelial Cell TRACE /LPF Urine Bacteria NONE /LPF Hyaline Casts 1-4 /LPF Urine Mucus 1+ /LPF COVID-19 (REZA) (Negative) COVID-19 Clin Com 06/01/21 06/01/21 06/01/21 Range/Units 22:40 22:40 22:40 WBC (4.8-10.8) X10*3/uL RBC (4.60-5.80) X10*6/uL Hgb (14.0-18.0) g/dl Hct (42.0-52.0) % MCV (80.0-98.0) fL MCH (27.0-33.0) pg MCHC (31.0-36.0) g/dl RDW (11.0-16.0) % Plt Count (160-400) X10*3/uL MPV (9.4-12.4) fL Immature Gran % (Auto) (0.0-0.4) % Neut % (Auto) (45-73) % Lymph % (Auto) (20-40) % [place] % (Auto) (2-11) % Eos % (Auto) (0-4) % Baso % (Auto) (0-2) % Lymph # (Auto) (1.2-4.9) X10*3/uL [place] # (Auto) (0.1-1.2) X10*3/uL Eos # (Auto) (0.0-0.4) X10*3/uL Baso # (Auto) (0.0-0.2) X10*3/uL Abs Immat Gran (auto) (0.00-0.03) X10*3/uL Absolute Neuts (auto) (2.0-8.3) x10*3/uL Absolute Nucleated RBC (0.0-0.012) X10*3/uL Nucleated RBC % (auto) (0.0-0.2) /100WBC Smear Tech's Comments PT (9.9-13.0) SEC INR (0.9-1.1) Coag Specimen Comment Sodium 137 (135-145) mmol/L Potassium 4.5 D (3.3-5.1) mmol/L Chloride 103 (96-108) mmol/L Carbon Dioxide 24 (22-29) mmol/L Anion Gap 15 (12-20) BUN 42 H (9-16) mg/dL Creatinine 1.67 H (0.5-1.4) mg/dL Estim Creat Clear Calc 29.7 Estimated GFR 39 Random Glucose 162 H D (60-115) mg/dL Lactic Acid 2.4 H* (0.5-2.0) mmol/L Lactic Acid F/U @ 2Hr (0.5-2.0) mmol/L Calcium 9.2 D (8.4-10.2) mg/dL Total Bilirubin 0.7 (0.0-1.0) mg/dL Direct Bilirubin 0.2 (0.0-0.5) mg/dL AST 25 D (5-37) U/L ALT 21 (0-40) U/L Alkaline Phosphatase 91 (39-117) U/L Total Protein 7.8 (6.5-8.0) g/dL Albumin 4.2 (3.5-5.0) g/dL Urine Color Urine Appearance Urine pH (5.0-8.0) Ur Specific [place] (1.005-1.025) Urine Protein (NEG-TRACE) MG/DL Urine Glucose (UA) (NEG) MG/DL Urine Ketones (NEG) MG/DL Urine Blood (NEG) Urine Nitrite (NEG) Ur Leukocyte Esterase (NEG) Urine RBC (0) /HPF Urine WBC (0-4) /HPF Ur Squamous Epith Cells /LPF Ur Renal Epithelial Cell /LPF Urine Bacteria /LPF Hyaline Casts /LPF Urine Mucus /LPF COVID-19 (REZA) Negative (Negative) COVID-19 Clin Com See Note 06/02/21 06/02/21 Range/Units 01:28 01:28 WBC (4.8-10.8) X10*3/uL RBC (4.60-5.80) X10*6/uL Hgb (14.0-18.0) g/dl Hct (42.0-52.0) % MCV (80.0-98.0) fL MCH (27.0-33.0) pg MCHC (31.0-36.0) g/dl RDW (11.0-16.0) % Plt Count (160-400) X10*3/uL MPV (9.4-12.4) fL Immature Gran % (Auto) (0.0-0.4) % Neut % (Auto) (45-73) % Lymph % (Auto) (20-40) % [place] % (Auto) (2-11) % Eos % (Auto) (0-4) % Baso % (Auto) (0-2) % Lymph # (Auto) (1.2-4.9) X10*3/uL [place] # (Auto) (0.1-1.2) X10*3/uL Eos # (Auto) (0.0-0.4) X10*3/uL Baso # (Auto) (0.0-0.2) X10*3/uL Abs Immat Gran (auto) (0.00-0.03) X10*3/uL Absolute Neuts (auto) (2.0-8.3) x10*3/uL Absolute Nucleated RBC (0.0-0.012) X10*3/uL Nucleated RBC % (auto) (0.0-0.2) /100WBC Smear Tech's Comments PT (9.9-13.0) SEC INR (0.9-1.1) Coag Specimen Comment Sodium 137 (135-145) mmol/L Potassium 4.4 (3.3-5.1) mmol/L Chloride 106 (96-108) mmol/L Carbon Dioxide 24 (22-29) mmol/L Anion Gap 11 L (12-20) BUN 39 H (9-16) mg/dL Creatinine 1.41 H (0.5-1.4) mg/dL Estim Creat Clear Calc 35.2 Estimated GFR 48 Random Glucose 114 (60-115) mg/dL Lactic Acid (0.5-2.0) mmol/L Lactic Acid F/U @ 2Hr 1.8 (0.5-2.0) mmol/L Calcium 8.8 (8.4-10.2) mg/dL Total Bilirubin (0.0-1.0) mg/dL Direct Bilirubin (0.0-0.5) mg/dL AST (5-37) U/L ALT (0-40) U/L Alkaline Phosphatase (39-117) U/L Total Protein (6.5-8.0) g/dL Albumin (3.5-5.0) g/dL Urine Color Urine Appearance Urine pH (5.0-8.0) Ur Specific [place] (1.005-1.025) Urine Protein (NEG-TRACE) MG/DL Urine Glucose (UA) (NEG) MG/DL Urine Ketones (NEG) MG/DL Urine Blood (NEG) Urine Nitrite (NEG) Ur Leukocyte Esterase (NEG) Urine RBC (0) /HPF Urine WBC (0-4) /HPF Ur Squamous Epith Cells /LPF Ur Renal Epithelial Cell /LPF Urine Bacteria /LPF Hyaline Casts /LPF Urine Mucus /LPF COVID-19 (REZA) (Negative) COVID-19 Clin Com Imaging Data Chest x-ray: Radiologist's impression: FINDINGS: Chronic coarse interstitial markings.. No focal consolidation or mass. Normal pulmonary vascularity. No pleural effusion or pneumothorax. Normal heart size. Calcified aortic arch. XR/XR chest 1V IMPRESSION: No acute pulmonary disease. No significant change from prior study. Discharge Plan Discharge Clinical Impression: Diarrhea Qualifiers: Diarrhea type: unspecified type Qualified Code(s): R19.7 - Diarrhea, unspecified Patient Disposition: Home, Self-Care Instructions: Acute Diarrhea (ED) Additional Instructions: Please follow-up with your primary care physician tomorrow. If you have any worsening or new symptoms, please return to the emergency room or call 911 Prescriptions: New loperamide 2 mg capsule 2 mg PO Q4H PRN (Reason: loose stool) Qty: 14 RF: 0 No Action amlodipine 5 mg Tablet 7.5 mg PO DAILY RF: 0 quetiapine 25 mg Tablet 25 mg PO BEDTIME RF: 0 atorvastatin [Lipitor] 40 mg Tablet 40 mg PO BEDTIME RF: 0 acetaminophen 325 mg Tablet 650 mg PO Q6H PRN (Reason: Pain) RF: 0 trazodone 50 mg Tablet 25 mg PO BEDTIME PRN (Reason: Sleep) RF: 0 levetiracetam [Keppra] 500 mg Tablet 500 mg PO BID RF: 0 oxcarbazepine 300 mg Tablet 300 mg PO BID RF: 0 magnesium hydroxide [Milk of Magnesia] 400 mg/5 mL Suspension 400 mg PO DAILY PRN (Reason: Constipation) RF: 0 bisacodyl 10 mg Suppository 10 mg [place] DAILY PRN (Reason: Constipation) RF: 0 Fleet Enema 19-7 gram/118 mL Enema 118 ml [place] DAILY PRN (Reason: Constipation) RF: 0 docusate sodium [Colace] 100 mg Capsule 100 mg PO DAILY RF: 0 lisinopril 5 mg Tablet 5 mg PO DAILY RF: 0 metoprolol tartrate 25 mg Tablet 12.5 mg PO BID RF: 0 Eliquis 5 mg Tablet 5 mg PO BID RF: 0 Calcium + Vitamin D tablet 600 mg PO DAILY RF: 0 allopurinol 100 mg tablet 2 tab PO DAILY RF: 0 Eliquis 5 mg tablet 1 tab PO BID RF: 0
[2021-06-01 22:21] VITALS: BP 145/69; PULSE 109; RESP 32; TEMP 37.9; O2SAT 98; BMI 20.2
[2021-06-01 22:49] LABS: Basophils Percent Auto 0.3 % (0-2); Eosinophils Percent Auto 0.5 % (0-4); Hematocrit 44.5 % (42.0-52.0); Hemoglobin 15.1 g/dl (14.0-18.0); Imm Gran Abs Auto 0.02 X10*3/uL (0.00-0.03); Imm Gran Pct Auto 0.3 % (0.0-0.4); Lymphocytes Absolute Auto 0.2 X10*3/uL (1.2-4.9); Lymphocytes Percent Auto 2.2 % (20-40); MANUAL DIFF FLAG SCAN; Mean Corpuscular HGB Conc 33.9 g/dl (31.0-36.0); Mean Corpuscular Hemoglobin 32.1 pg (27.0-33.0); Mean Corpuscular Volume 94.5 fL (80.0-98.0); Mean Platelet Volume 9.6 fL (9.4-12.4); Monocytes Absolute Auto 0.3 X10*3/uL (0.1-1.2); Monocytes Percent Auto 4.1 % (2-11); Neutrophils Absolute Auto 6.9 x10*3/uL (2.0-8.3); Neutrophils Percent Auto 92.6 % (45-73); Platelet Count 201 X10*3/uL (160-400); Red Blood Count 4.71 X10*6/uL (4.60-5.80); Red Cell Distribution Width 14.6 % (11.0-16.0); SCAN SMEAR FLAG 1; White Blood Count 7.4 X10*3/uL (4.8-10.8)
[2021-06-01] MEDS: 0.9 % Sodium Chloride 1,000 ML 999 ML IVCONT (22:51)
[2021-06-01 22:54] LABS: Appearance Urine CLEAR; Color Urine YELLOW; Glucose Urine UA NEG (NEG); Leukocyte Esterase Urine NEG (NEG); Nitrite Urine NEG (NEG); Specific Gravity - Urine 1.025 (1.005-1.025); UACC Culture Trigger NO; Urine Blood NEG (NEG); Urine Ketones 15 MG/DL (NEG); Urine Protein 2+ MG/DL (NEG-TRACE)
[2021-06-01 23:01] LABS: Delay - Coag DELAY
[2021-06-01 23:02] LABS: COVID-19 Test Negative (Negative)
[2021-06-01 23:04] LABS: Squamous Epithelial Cell Urine 1+ /LPF; WBC Urine 0 /HPF (0-4)
[2021-06-01 23:05] LABS: Mucus Urine 1+ /LPF; Renal Epithelial Cells Urine TRACE /LPF
[2021-06-01 23:06] LABS: SLIDE REVIEW VERIFIED
[2021-06-01 23:14] LABS: Lactic Acid 2.4 mmol/L (0.5-2.0)
[2021-06-01 23:17] LABS: Alanine Aminotransferase 21 U/L (0-40); Albumin Level 4.2 g/dL (3.5-5.0); Alkaline Phosphatase 91 U/L (39-117); Anion Gap 15 (12-20); Aspartate Amino Transferase 25 U/L (5-37); Bilirubin Direct 0.2 mg/dL (0.0-0.5); Bilirubin Total 0.7 mg/dL (0.0-1.0); Blood Urea Nitrogen 42 mg/dL (9-16); Calcium 9.2 mg/dL (8.4-10.2); Carbon Dioxide 24 mmol/L (22-29); Chloride 103 mmol/L (96-108); Creatinine Clr Calc Pharmacy 29.7; Estimated Glomerular Filt Rate 39; Glucose Random 162 mg/dL (60-115); Potassium 4.5 mmol/L (3.3-5.1); Sodium 137 mmol/L (135-145); Total Protein 7.8 g/dL (6.5-8.0)
[2021-06-01 23:18] LABS: INTERNATIONAL NORM RATIO 1.3 (0.9-1.1); Prothrombin Time 14.3 SEC (9.9-13.0)
[2021-06-02] MEDS: 0.9 % Sodium Chloride 1,000 ML 999 ML IVCONT (00:34)
[2021-06-02 00:35] VITALS: BP 152/88; PULSE 109; RESP 33; TEMP 38; O2SAT 97
[2021-06-02 00:46] LABS: Reflex Lactate? Lactic Acid Added
[2021-06-02 01:45] LABS: ~Lactic Acid-LAB USE ONLY 1.8 mmol/L (0.5-2.0)
[2021-06-02 01:47] LABS: Anion Gap 11 (12-20); Blood Urea Nitrogen 39 mg/dL (9-16); Calcium 8.8 mg/dL (8.4-10.2); Carbon Dioxide 24 mmol/L (22-29); Chloride 106 mmol/L (96-108); Creatinine Clr Calc Pharmacy 35.2; Estimated Glomerular Filt Rate 48; Glucose Random 114 mg/dL (60-115); Potassium 4.4 mmol/L (3.3-5.1); Sodium 137 mmol/L (135-145)
[2021-06-02 02:56] VITALS: BP 156/86; PULSE 113; RESP 23; O2SAT 113
[2021-06-02] MEDS: Loperamide HCl 2 MG CAPSULE 4 MG PO (03:07)
--- NOTE | 2021-06-02 03:41 | PC.NURSE ---
Pt took loperimide with pudding, pt wasn't able to follow commands and drink from a cup.
--- NOTE | 2021-06-02 03:42 | PC.NURSE ---
Pt report given to RN at [facility].
--- NOTE | 2021-06-02 05:43 | PC.NURSE ---
EMS transported Pt back to facility.
== END 2021-06-02 05:45 | disposition skilled nursing facility (03) ==
PROVIDERS: Emergency Provider Emergency Medicine
DX: R19.7 Diarrhea, unspecified (principal); R11.2 Nausea with vomiting, unspecified; R53.83 Other fatigue; Z20.822 Contact with and (suspected) exposure to COVID-19; I10 Essential (primary) hypertension; E78.5 Hyperlipidemia, unspecified; F03.90 Unspecified dementia, unspecified severity, without behavioral disturbance, psychotic disturbance, mood disturbance, and anxiety; Z79.01 Long term (current) use of anticoagulants; Z79.02 Long term (current) use of antithrombotics/antiplatelets; Z79.899 Other long term (current) drug therapy
CPT/HCPCS: 36415; 51701; 71045; 80048; 80076; 81001; 83605; 85025; 85610; 87040; 87635; 96360; 96361; 99284

== ENCOUNTER 2022-05-13 22:38 | Emergency (ER) | payer MEDICARE, SELFPAY ==
[2022-05-13 22:54] VITALS: BP 133/61; BP 142/77; PULSE 52; PULSE 57; RESP 17; TEMP 35.9; O2SAT 90; O2SAT 95; BMI 24.1
--- NOTE | 2022-05-13 22:55 | ECG_ITS ---
Test Reason : AMS Blood Pressure : / mmHG Vent. Rate : 058 BPM Atrial Rate : 058 BPM P-R Int : 172 ms QRS Dur : 094 ms QT Int : 448 ms P-R-T Axes : 059 024 030 degrees QTc Int : 439 ms Sinus bradycardia Otherwise normal ECG When compared with ECG of 03-DEC-2020 09:43, Vent. rate has decreased BY 42 BPM Referred By: Susana Flores Electronically Signed By:VOLODYMYR HA
[2022-05-13 22:59] VITALS: BP 133/61; PULSE 57; RESP 16; TEMP 35.9; O2SAT 92
--- NOTE | 2022-05-13 23:00 | ED_ITS ---
HPI - Altered Mental Status General Chief Complaint: Altered Mental Status Stated Complaint: AMS Time Seen by Provider: 05/13/22 22:43 Source: EMS Mode of arrival: EMS Limitations: other (Chronic dementia, nonverbal at baseline) History of Present Illness HPI narrative: Patient comes to the emergency room via EMS from [facility]. Patient has history of dementia and is nonverbal at baseline. According to EMS, they received a 911 called from the nursing facility for a cardiac arrest. When they arrived to the patient's facility, patient was awake, alert, trying to remove the oxygen mask of his face. According to EMS, the staff did not start CPR. Seems that the patient was sleeping, when they finally woke him up, patient was back to his baseline. Related Data Home Medications Medication Instructions Recorded Confirmed Calcium + Vitamin D 600 mg PO DAILY 12/03/20 12/03/20 acetaminophen 325 mg tablet 650 mg PO Q6H PRN Pain 12/03/20 12/03/20 amlodipine 5 mg tablet 7.5 mg PO DAILY 12/03/20 12/03/20 apixaban 5 mg tablet (Eliquis) 5 mg PO BID 12/03/20 12/03/20 atorvastatin 40 mg tablet (Lipitor) 40 mg PO BEDTIME 12/03/20 12/03/20 bisacodyl 10 mg rectal suppository 10 mg ND DAILY PRN Constipation 12/03/20 12/03/20 docusate sodium 100 mg capsule 100 mg PO DAILY 12/03/20 12/03/20 (Colace) levetiracetam 500 mg tablet 500 mg PO BID 12/03/20 12/03/20 (Keppra) lisinopril 5 mg tablet 5 mg PO DAILY 12/03/20 12/03/20 magnesium hydroxide 400 mg/5 mL 400 mg PO DAILY PRN Constipation 12/03/20 12/03/20 oral suspension (Milk of Magnesia) metoprolol tartrate 25 mg tablet 12.5 mg PO BID 12/03/20 12/03/20 oxcarbazepine 300 mg tablet 300 mg PO BID 12/03/20 12/03/20 quetiapine 25 mg tablet 25 mg PO BEDTIME 12/03/20 12/03/20 sodium phosphates 19 gram-7 118 ml ND DAILY PRN Constipation 07/04/21 07/04/21 gram/118 mL enema (Fleet Enema) trazodone 50 mg tablet 25 mg PO BEDTIME PRN Sleep 12/03/20 12/03/20 allopurinol 100 mg tablet 2 tab PO DAILY 06/01/21 apixaban 5 mg tablet (Eliquis) 1 tab PO BID 06/01/21 Previous Rx's Medication Instructions Recorded loperamide 2 mg capsule 2 mg PO Q4H PRN loose stool #14 06/02/21 caps Allergies Allergy/AdvReac Type Severity Reaction Status Date / Time hydrochlorothiazide Allergy Unknown Verified 12/03/20 09:33 niacin Allergy Unknown Verified 12/03/20 09:33 nifedipine Allergy Unknown Verified 12/03/20 09:33 Review of Systems Review of Systems: Yes Unobtainable due to mental condition [facility] Past Medical History Medical History Bradycardia COPD (chronic obstructive pulmonary disease) Dementia Dysphagia Gout History of pulmonary embolism Hyperlipidemia Hypertension Hyponatremia Kidney disease Metabolic encephalopathy Seizure Social History Social History Household Members: None Housing: Detention Do you presently have visiting nurse or other home services: No Unable to assess alcohol history related to: Unknown Patient Tobacco Use Status: Tobacco use Unknown Advance Directives Date on File: 12/03/20 Current occupational status: retired Physical Exam ED Vital Signs: Vital Signs - 24 hr 05/13/22 22:54 05/13/22 22:59 Temperature 96.7 F L 96.7 F L Pulse Rate 57 57 Respiratory Rate 17 16 Blood Pressure 133/61 133/61 Pulse Oximetry 90 L 92 Oxygen Delivery Method Room Air Room Air BMI result Body Mass Index 24.1 Const Other: Appearance: Alert.No acute distress. Eyes: Pupils equal, round and reactive to light. ENT: Pharynx normal. Neck: Normal inspection. Neck supple. No lymph nodes noted. No crepitus CVS: Normal heart rate and rhythm. Pulses normal. Normal S1 and S2 Respiratory: No respiratory distress. Breath sounds normal. No Wheezing. No rales Abdomen: Soft and nontender. No rigidity. No distention. Skin: Skin warm and dry. Normal skin color. Normal skin turgor. Extremities: No lower extremity edema. No Lacerations. No Rash Neuro: CN 2 through 12 grossly intact Psych: calm, cooperative, normal affect Course Course Course Narrative: Patient is in no acute distress, patient is unable to verbalize his needs. We will basic lab work. Patient's creatinine is at baseline, no acute findings Patient's labs and urinalysis do not show any acute pathology. Patient remained stable on room air. Patient will be returning to the longterm facility Medical Decision Making Differential Diagnosis Encephalopathy, fatigue, weakness, UTI Lab Data MDM Lab Attestation statement: I reviewed the patient's lab results. Result Diagrams: 05/13/22 23:34 05/13/22 23:34 Labs: Lab Results 05/13/22 05/13/22 05/13/22 Range/Units 23:34 23:34 23:34 WBC 7.3 (4.8-10.8) X10*3/uL RBC 4.63 (4.60-5.80) X10*6/uL Hgb 14.4 (14.0-18.0) g/dl Hct 43.4 (42.0-52.0) % MCV 93.7 (80.0-98.0) fL MCH 31.1 (27.0-33.0) pg MCHC 33.2 (31.0-36.0) g/dl RDW 13.6 (11.0-16.0) % Plt Count 242 (160-400) X10*3/uL MPV 9.3 L (9.4-12.4) fL Immature Gran % (Auto) 0.7 H (0.0-0.4) % Neut % (Auto) 69.0 (45-73) % Lymph % (Auto) 20.9 (20-40) % [place] % (Auto) 6.7 (2-11) % Eos % (Auto) 2.2 (0-4) % Baso % (Auto) 0.5 (0-2) % Lymph # (Auto) 1.5 (1.2-4.9) X10*3/uL [place] # (Auto) 0.5 (0.1-1.2) X10*3/uL Eos # (Auto) 0.2 (0.0-0.4) X10*3/uL Baso # (Auto) 0.0 (0.0-0.2) X10*3/uL Abs Immat Gran (auto) 0.05 H (0.00-0.03) X10*3/uL Absolute Neuts (auto) 5.0 (2.0-8.3) x10*3/uL Absolute Nucleated RBC 0.000 (0.0-0.012) X10*3/uL Nucleated RBC % (auto) 0.0 (0.0-0.2) /100WBC Sodium 139 (135-145) mmol/L Potassium 4.8 (3.3-5.1) mmol/L Chloride 103 (96-108) mmol/L Carbon Dioxide 27 (22-29) mmol/L Anion Gap 14 (12-20) BUN 47 H (9-16) mg/dL Creatinine 1.66 H (0.5-1.4) mg/dL Estim Creat Clear Calc 31.4 Estimated GFR 40 Random Glucose 128 H (60-115) mg/dL Calcium 9.3 (8.4-10.2) mg/dL Direct Bilirubin < 0.2 (0.0-0.5) mg/dL AST 18 (5-37) U/L ALT 15 (0-40) U/L Alkaline Phosphatase 81 (39-117) U/L Troponin I High Sens 4.2 (<3.5-35.0) ng/L Total Protein 7.6 (6.5-8.0) g/dL Albumin 4.3 (3.5-5.0) g/dL Urine Color Urine Appearance Urine pH (5.0-9.0) Ur Specific [place] (1.005-1.025) Urine Protein (Neg-Trace) mg/dL Urine Glucose (UA) (Negative) mg/dL Urine Ketones (Negative) mg/dL Urine Blood (Negative) Urine Nitrite (Negative) Ur Leukocyte Esterase (Negative) COVID-19 (REZA) (Negative) COVID-19 Clin Com 05/13/22 05/14/22 Range/Units 23:34 00:11 WBC (4.8-10.8) X10*3/uL RBC (4.60-5.80) X10*6/uL Hgb (14.0-18.0) g/dl Hct (42.0-52.0) % MCV (80.0-98.0) fL MCH (27.0-33.0) pg MCHC (31.0-36.0) g/dl RDW (11.0-16.0) % Plt Count (160-400) X10*3/uL MPV (9.4-12.4) fL Immature Gran % (Auto) (0.0-0.4) % Neut % (Auto) (45-73) % Lymph % (Auto) (20-40) % [place] % (Auto) (2-11) % Eos % (Auto) (0-4) % Baso % (Auto) (0-2) % Lymph # (Auto) (1.2-4.9) X10*3/uL [place] # (Auto) (0.1-1.2) X10*3/uL Eos # (Auto) (0.0-0.4) X10*3/uL Baso # (Auto) (0.0-0.2) X10*3/uL Abs Immat Gran (auto) (0.00-0.03) X10*3/uL Absolute Neuts (auto) (2.0-8.3) x10*3/uL Absolute Nucleated RBC (0.0-0.012) X10*3/uL Nucleated RBC % (auto) (0.0-0.2) /100WBC Sodium (135-145) mmol/L Potassium (3.3-5.1) mmol/L Chloride (96-108) mmol/L Carbon Dioxide (22-29) mmol/L Anion Gap (12-20) BUN (9-16) mg/dL Creatinine (0.5-1.4) mg/dL Estim Creat Clear Calc Estimated GFR Random Glucose (60-115) mg/dL Calcium (8.4-10.2) mg/dL Direct Bilirubin (0.0-0.5) mg/dL AST (5-37) U/L ALT (0-40) U/L Alkaline Phosphatase (39-117) U/L Troponin I High Sens (<3.5-35.0) ng/L Total Protein (6.5-8.0) g/dL Albumin (3.5-5.0) g/dL Urine Color Yellow Urine Appearance Clear Urine pH 5.5 (5.0-9.0) Ur Specific [place] 1.020 (1.005-1.025) Urine Protein 100 (2+) H (Neg-Trace) mg/dL Urine Glucose (UA) Negative (Negative) mg/dL Urine Ketones Trace (Negative) mg/dL Urine Blood Negative (Negative) Urine Nitrite Negative (Negative) Ur Leukocyte Esterase Negative (Negative) COVID-19 (REZA) Negative (Negative) COVID-19 Clin Com See Note Discharge Plan Discharge Clinical Impression: Tired Patient Disposition: Home, Self-Care Instructions: Fatigue (ED) Additional Instructions: Please follow-up with your primary care physician tomorrow. If you have any worsening or new symptoms, please return to the emergency room or call 911 Prescriptions: No Action amlodipine 5 mg Tablet 7.5 mg PO DAILY quetiapine 25 mg Tablet 25 mg PO BEDTIME atorvastatin [Lipitor] 40 mg Tablet 40 mg PO BEDTIME acetaminophen 325 mg Tablet 650 mg PO Q6H PRN (Reason: Pain) trazodone 50 mg Tablet 25 mg PO BEDTIME PRN (Reason: Sleep) levetiracetam [Keppra] 500 mg Tablet 500 mg PO BID oxcarbazepine 300 mg Tablet 300 mg PO BID magnesium hydroxide [Milk of Magnesia] 400 mg/5 mL Suspension 400 mg PO DAILY PRN (Reason: Constipation) bisacodyl 10 mg Suppository 10 mg ND DAILY PRN (Reason: Constipation) Fleet Enema 19-7 gram/118 mL Enema 118 ml ND DAILY PRN (Reason: Constipation) docusate sodium [Colace] 100 mg Capsule 100 mg PO DAILY lisinopril 5 mg Tablet 5 mg PO DAILY metoprolol tartrate 25 mg Tablet 12.5 mg PO BID Eliquis 5 mg Tablet 5 mg PO BID Calcium + Vitamin D tablet 600 mg PO DAILY allopurinol 100 mg tablet 2 tab PO DAILY Eliquis 5 mg tablet 1 tab PO BID loperamide 2 mg capsule 2 mg PO Q4H PRN (Reason: loose stool) Qty: 14 0RF Rx Instructions: administer after each loose stool until symptoms controlled; do not exceed 8 mg per 24 hrs
[2022-05-13 23:38] LABS: Basophils Percent Auto 0.5 % (0-2); Eosinophils Absolute Auto 0.2 X10*3/uL (0.0-0.4); Eosinophils Percent Auto 2.2 % (0-4); Hematocrit 43.4 % (42.0-52.0); Hemoglobin 14.4 g/dl (14.0-18.0); Imm Gran Abs Auto 0.05 X10*3/uL (0.00-0.03); Imm Gran Pct Auto 0.7 % (0.0-0.4); Lymphocytes Absolute Auto 1.5 X10*3/uL (1.2-4.9); Lymphocytes Percent Auto 20.9 % (20-40); MANUAL DIFF FLAG NO; Mean Corpuscular HGB Conc 33.2 g/dl (31.0-36.0); Mean Corpuscular Hemoglobin 31.1 pg (27.0-33.0); Mean Corpuscular Volume 93.7 fL (80.0-98.0); Mean Platelet Volume 9.3 fL (9.4-12.4); Monocytes Absolute Auto 0.5 X10*3/uL (0.1-1.2); Monocytes Percent Auto 6.7 % (2-11); Platelet Count 242 X10*3/uL (160-400); Red Blood Count 4.63 X10*6/uL (4.60-5.80); Red Cell Distribution Width 13.6 % (11.0-16.0); White Blood Count 7.3 X10*3/uL (4.8-10.8)
[2022-05-14] LABS: Alanine Aminotransferase 15 U/L (0-40); Albumin Level 4.3 g/dL (3.5-5.0); Alkaline Phosphatase 81 U/L (39-117); Anion Gap 14 (12-20); Aspartate Amino Transferase 18 U/L (5-37); Bilirubin Direct < 0.2 mg/dL (0.0-0.5); Blood Urea Nitrogen 47 mg/dL (9-16); Calcium 9.3 mg/dL (8.4-10.2); Carbon Dioxide 27 mmol/L (22-29); Chloride 103 mmol/L (96-108); Creatinine Clr Calc Pharmacy 31.4; Estimated Glomerular Filt Rate 40; Glucose Random 128 mg/dL (60-115); Potassium 4.8 mmol/L (3.3-5.1); Sodium 139 mmol/L (135-145); Total Protein 7.6 g/dL (6.5-8.0)
[2022-05-14 00:04] LABS: Troponin-I High Sensitivity 4.2 ng/L (<3.5-35.0)
[2022-05-14 00:07] LABS: COVID-19 Test Negative (Negative); IDNOW Serial# BCCEAD1C
[2022-05-14 00:18] LABS: Appearance Urine Clear; Color Urine Yellow; Glucose Urine UA Negative (Negative); Leukocyte Esterase Urine Negative (Negative); Nitrite Urine Negative (Negative); PH 5.5 (5.0-9.0); UMIC TRIGGER UACC YES; Urine Blood Negative (Negative); Urine Ketones Trace mg/dL (Negative); Urine Protein 100 (2+) mg/dL (Neg-Trace)
[2022-05-14 00:30] LABS: Bacteria Urine None Seen (None Seen); Granular Casts Urine Present; RBC Urine 0-2 /HPF (0-2); Squamous Epithelial Cell Urine 0-2 /HPF (0-2); WBC Urine 0-5 /HPF (0-5)
--- OUTSIDE RECORDS SUMMARY | 2022-05-14 00:31 | XMS_ITS | Continuity of Care Document ---
:1935 Author Organization [facility] Address [address] [place] [address]- Care Team Providers Name Role Phone Moshe Turner MD Primary Care Physician Encounter [facility] [place] Date(s): 04/26/21 - 04/27/[address] [address]- Encounter Diagnosis Fall (Final) - 04/26/21 Discharge Disposition: A-D/C Home Attending Physician: Valentina Olmedo DO Admitting Physician: Valentina Olmedo DO Referring Physician: Not on Staff, Referring MD Allergies, Adverse Reactions, Alerts Substance Reaction Severity Status NIFEdipine Active niacin Nifedipine Active hydroCHLOROthiazide Active Medications acetaminophen 325 mg oral tablet 650 mg, 2, tablet, By Mouth, Every 6 hours, PRN, Maintenance, as needed for fever/pain, 10/25/20 12:09:00 EDT, ; Start Date: 10/25/20 Status: Orderedallopurinol 100 mg oral tablet 200 mg, 2, tablet, By Mouth, Daily in AM, Maintenance, 10/25/20 12:14:00 EDT, ; Start Date: 10/25/20 Status: OrderedamLODIPine 2.5 mg oral tablet 2.5 mg, 1, tablet, By Mouth, Daily, Maintenance, 10/25/20 12:12:00 EDT, ; Start Date: 10/25/20 Status: OrderedBisac-Evac 10 mg rectal suppository 1 supp = 10 mg, Rectally, Daily, PRN for constipation, if milk of mag dosen't work, Maintenance, 10/25/20 12:05:00 EDT, Suppository, ; Start Date: 10/25/20 Status: Orderedcalcium-vitamin D 600 mg-400 intl units oral tablet 1 tablet, By Mouth, Daily in AM, Maintenance, 10/25/20 11:59:00 EDT, Tablet, ; Start Date: 10/25/20 Status: OrderedColace sodium 100 mg oral capsule 200 mg, 2, capsule, By Mouth, Daily in AM, PRN, Maintenance, for constipation, 10/25/20 12:13:00 EDT, ; Start Date: 10/25/20 Status: OrderedEliquis 5 mg oral tablet 1 tablet = 5 mg, By Mouth, 2 times a day, Maintenance, 10/25/20 11:58:00 EDT, Tablet, ; Start Date: 10/25/20 Status: OrderedFleet Enema 19 gm-7 gm rectal enema 1 each, Rectally, Once, PRN as needed for constipation, if ducolax suppository doesn't work, Maintenance, 10/25/20 12:06:00 EDT, Enema, ; Start Date: 10/25/20 Status: OrderedKeppra 500 mg oral tablet 1 tablet = 500 mg, By Mouth, 2 times a day, Maintenance, 10/25/20 11:57:00 EDT, Tablet, ; Start Date: 10/25/20 Status: OrderedLipitor 40 mg oral tablet 1 tablet = 40 mg, By Mouth, Daily in AM, Maintenance, 10/25/20 11:57:00 EDT, Tablet, ; Start Date: 10/25/20 Status: Orderedlisinopril 5 mg oral tablet 5 mg, 1, tablet, By Mouth, Daily in AM, Maintenance, 10/25/20 11:56:00 EDT, ; Start Date: 10/25/20 Status: Orderedmetoprolol 25 mg oral tablet 12.5 mg, 0.5, tablet, By Mouth, 2 times a day, Refills 0, Maintenance, 10/30/20 11:12:00 EDT, Partial fill upon patient request if the prescription is for a schedule II opioid drug. Start Date: 10/30/20 Status: OrderedMilk of Magnesia 30 mL, By Mouth, Daily, PRN as needed for constipation, if no BM in 3 days, Maintenance, 10/25/20 12:08:00 EDT, ; Start Date: 10/25/20 Status: OrderedMisc Rx 4 oz, By Mouth, 2 times a day, Maintenance, ENSURE 8OZ, 10/25/20 12:15:00 EDT, Supply Start Date: 10/25/20 Status: OrderedMultivitamin With Minerals 1 tablet, By Mouth, Daily, Maintenance, 10/25/20 12:04:00 EDT, ; Start Date: 10/25/20 Status: OrderedOXcarbazepine 300 mg oral tablet 300 mg, 1, tablet, By Mouth, 2 times a day, Maintenance, 10/25/20 12:00:00 EDT, ; Start Date: 10/25/20 Status: OrderedSEROquel 25 mg oral tablet 25 mg, 1, tablet, By Mouth, 2 times a day, Give at 9 AM and at bedtime, # 30 tablet, Refills 0, Tot.Refills 0, Maintenance, 10/30/20 11:12:00 EDT, Do Not Route, Partial fill upon patient request if the prescription is for a schedule II opioid drug. Start Date: 10/30/20 Status: OrderedtraZODone 50 mg oral tablet 25 mg, 0.5, tablet, By Mouth, 2 times a day, Maintenance, 10/25/20 12:11:00 EDT, ; Start Date: 10/25/20 Status: Ordered Vital Signs Most recent to oldest [Reference Range]: 1 Oxygen Saturation [94-100 %] 97 % (04/26/21 9:38 PM) Pulse Rate [55-90 bpm] 74 bpm (04/26/21 9:38 PM) Blood Pressure [90-138/55-84 mm Hg] 181/82 mm Hg *H* (04/26/21 9:38 PM) Respiratory Rate [16-30 br/min] 16 br/min (04/26/21 9:38 PM) Temperature [96.8-100.4 DegF] 98.4 DegF (04/26/21 9:38 PM) Mode of Delivery (Oxygen) Room air (04/26/21 9:38 PM) Blood pressure sites Arm, left (04/26/21 9:38 PM) Temperature Route Oral (04/26/21 9:38 PM)
--- OUTSIDE RECORDS SUMMARY | 2022-05-14 00:31 | XMS_ITS | Continuity of Care Document ---
:1935 Author Organization [facility] Address [address] [place] [address]- Care Team Providers Name Role Phone Johnny OROURKE, Moshe Primary Care Physician Encounter [facility] [place] Date(s): 10/26/20 - 10/30/[address] [address] Discharge Disposition: Transfer Nursing Home Care Attending Physician: Aldo Pike MD Admitting Physician: Dawit Galvez MD Referring Physician: Not on Staff, Referring MD [...] 12:12:00 EDT, ; Start Date: 10/25/20 Status: OrderedamLODIPine 5 mg oral tablet 2.5 mg, Tablet, By Mouth, 10/30/20 9:00:00 EDT Start Date: 10/30/20 Stop Date: 10/30/20 Status: CompletedBisac-Evac 10 mg rectal suppository 1 supp = [...] 11:56:00 EDT, ; Start Date: 10/25/20 Status: Orderedlisinopril 5 mg oral tablet 5 mg, Tablet, By Mouth, 10/30/20 9:00:00 EDT Start Date: 10/30/20 Stop Date: 10/30/20 Status: Completedmetoprolol 25 mg oral tablet 12.5 mg, 0.5, tablet, By Mouth, 2 times a day, Refills 0, Maintenance, 10/30/20 11:12:00 EDT, Partial fill upon patient request if the prescription is for a schedule II opioid drug. Start Date: 10/30/20 Status: Orderedmetoprolol 25 mg oral tablet 12.5 mg, Tablet, By Mouth, 10/30/20 9:00:00 EDT Start Date: 10/30/20 Stop Date: 10/30/20 Status: CompletedMilk of Magnesia 30 mL, By Mouth, Daily, [...] EDT, ; Start Date: 10/25/20 Status: Ordered Results Radiology Reports Exam Date Time Procedure Performing Provider Status 10/25/20 9:48 AM Chest 2 Views Frontal and Lat Ishan , Lydia; Au th (Verified) Notes:(Chest 2 Views Frontal and Lat) Reason For Exam: syncope, ? hypoxia;Other: RESULT: Chest 2 Views Frontal and Lat Chest 2 Views Frontal and Lat Hx of Present Illness: Syncope; Reason: Other:; syncope, ? hypoxia; Clinical Question(s): Pneumonia COMPARISON: None. FINDINGS: No acute cardiopulmonary process. Wedge deformity in the upper thoracic spine is likely an old compression fracture IMPRESSION: No acute cardiopulmonary process. WSN: [id number] Ordering Physician: Flakita Sellers Dictated By: Chau Maloney MD Dictated Date/Time: 10/25/20 9:51 am Reviewed By: Chau Maloney MD Signed By: Chau Maloney MD Signed Date/Time: 10/25/20 9:51 am Transcribed By: ARSEN Transcribed Date/Time: 10/25/20 9:49 am Vital Signs Most recent to oldest 1 2 3 4 [Reference Range]: Oxygen Saturation 100 % 97 % 97 % [94-100 %] (10/30/20 11:36 AM) (10/30/20 7:25 AM) (10/29/20 6:51 PM) Pulse Rate [55-90 bpm] 62 bpm 73 bpm 71 bpm (10/30/20 11:36 AM) (10/30/20 8:45 AM) (10/30/20 7:25 AM) Blood Pressure 149/74 mm Hg 138/72 mm Hg 138/72 mm Hg 138/72 mm Hg [90-138/55-84 mm Hg] *H* (10/30/20 8:45 AM) (10/30/20 8:45 A M) (10/30/20 8:45 AM) (10/30/20 11:36 AM) Respiratory Rate [16-30 17 br/min 18 br/min 21 br/min br/min] (10/30/20 11:36 AM) (10/30/20 7:25 AM) (10/29/20 6:51 PM) Temperature [96.8-100.4 97.8 DegF 97.3 DegF 97.9 DegF DegF] (10/30/20 11:36 AM) (10/30/20 7:25 AM) (10/29/20 6:51 PM) Liters per Minute 2 L/min 2 L/min 4 L/min (10/27/20 7:00 AM) (10/26/20 2:15 PM) (10/26/20 12:06 PM) Mode of Delivery Room air Room air Room air (Oxygen) (10/30/20 11:36 AM) (10/30/20 7:25 AM) (10/29/20 6:51 PM) Blood pressure sites Arm, left Arm, left Arm, right (10/30/20 11:36 AM) (10/30/20 7:25 AM) (10/29/20 6:51 PM) Temperature Route Oral Oral Axillary (10/30/20 11:36 AM) (10/30/20 7:25 AM) (10/29/20 6:51 PM)
--- OUTSIDE RECORDS SUMMARY | 2022-05-14 00:31 | XMS_ITS | Continuity of Care Document ---
:1935 Author Organization [facility] Address [address] [place] [id number]- Care Team Providers Name Role Phone Moshe Turner MD Primary Care Physician Encounter [facility] [place] Date(s): 11/03/21 - 11/03/[address] [address]- Encounter Diagnosis Dementia (Final) - 11/03/21 Discharge Disposition: A-D/C Home Attending Physician: Nima Dupree MD Admitting Physician: Nima Dupree MD Referring Physician: Not on Staff, Referring [...] Exam Date Time Procedure Performing Provider Status 11/03/21 9:11 PM Chest Portable Margi Reyes; Aundrea snider) Notes:(Chest Portable) Reason For Exam: Shortness of BreathRESULT: Chest Portable Chest Portable Hx of Present Illness: Behavioral changes; Reason: Shortness of Breath; Clinical Question(s): CHF COMPARISON: 10/25/2020 FINDINGS: No acute cardiopulmonary process IMPRESSION: No acute abnormality. WSN: [id number] Ordering Physician: Nima Dupree Dictated By: Chau Maloney MD Dictated Date/Time: 11/03/21 9:14 pm Reviewed By: Chau Maloney MD Signed By: Chau Maloney MD Signed Date/Time: 11/03/21 9:14 pm Transcribed By: ARSEN Transcribed Date/Time: 11/03/21 9:13 pm Vital Signs Most recent to oldest [Reference 1 2 3 Range]: Oxygen Saturation [94-100 %] 99 % 97 % 97 % (11/03/21 11:00 PM) (11/03/21 7:21 PM) (11/03/21 7:12 PM) Pulse Rate [55-90 bpm] 62 bpm 62 bpm (11/03/21 11:00 PM) (11/03/21 7:12 PM) Blood Pressure [90-138/55-84 mm 140/70 mm Hg 134/71 mm Hg Hg] *H* (11/03/21 7:12 PM) (11/03/21 11:00 PM) Respiratory Rate [16-30 br/min] 20 br/min 25 br/min 18 br/min (11/03/21 11:00 PM) (11/03/21 7:21 PM) (11/03/21 7:12 PM) Temperature [96.8-100.4 DegF] 98.8 DegF (11/03/21 7:12 PM) Mode of Delivery (Oxygen) Room air (11/03/21 7:12 PM) Blood pressure sites Arm, right (11/03/21 7:12 PM) Temperature Route Oral (11/03/21 7:12 PM)
--- NOTE | 2022-05-14 00:35 | PC.NURSE ---
This nurse called [facility], the called was sent to voicemail and voicemail was left to return call.
[2022-05-14 00:47] LABS: Bilirubin Total 0.3 mg/dL (0.0-1.0)
== END 2022-05-14 01:04 | disposition home or self-care (01) ==
LOC: HO.ED 05-14 00:30
PROVIDERS: Emergency Provider Emergency Medicine
DX: R41.82 Altered mental status, unspecified (principal); R00.1 Bradycardia, unspecified; Z20.822 Contact with and (suspected) exposure to COVID-19; Z79.899 Other long term (current) drug therapy
CPT/HCPCS: 80048; 80076; 81001; 84484; 85025; 87635; 93005; 99284; 99285

== ENCOUNTER 2022-05-22 21:40 | Emergency (ER) | payer MEDICARE, SELFPAY ==
--- NOTE | ~2022-05-22 | XR_ITS ---
EXAMINATION: XR CHEST CLINICAL INFORMATION: Chest pain COMPARISON: 06/01/2021 TECHNIQUE: Frontal view of the chest was obtained. FINDINGS: Lung volumes are symmetric. No focal consolidation is seen. Minimal bibasilar atelectasis is suspected. No evidence of pneumothorax, pleural effusion, or pulmonary edema. The cardiomediastinal contour is unremarkable. No acute osseous findings are seen. XR/XR chest 1V IMPRESSION: Minimal bibasilar atelectasis without additional acute findings.
--- NOTE | ~2022-05-22 | XR_ITS ---
EXAMINATION: XR ABDOMEN KUB CLINICAL INDICATION: Low suspicion obstruction COMPARISON: None TECHNIQUE: AP view of the abdomen. FINDINGS: The bowel gas pattern is nonobstructive. Large amount of stool is present in the colon. No suspicious calcifications are seen. There is limited evaluation for free air with supine positioning. Minimal bibasilar atelectasis is suspected in the lungs. No acute osseous findings are seen. XR/XR KUB IMPRESSION: Nonobstructive bowel gas pattern. Large volume of stool.
[2022-05-22 21:50] VITALS: BP 214/83; BP 214/93; PULSE 76; PULSE 83; RESP 20; TEMP 36.7; O2SAT 95; O2SAT 97; BMI 22.7
--- NOTE | 2022-05-22 21:56 | ECG_ITS ---
Test Reason : CHEST PAIN Blood Pressure : / mmHG Vent. Rate : 082 BPM Atrial Rate : 082 BPM P-R Int : 192 ms QRS Dur : 094 ms QT Int : 360 ms P-R-T Axes : 053 028 049 degrees QTc Int : 420 ms Normal sinus rhythm Normal ECG When compared with ECG of 13-MAY-2022 23:20, No significant change was found Referred By: Susana Flores Electronically Signed By:Sergio Dempsey
[2022-05-22 22:38] VITALS: BP 187/89; PULSE 75; RESP 27
--- NOTE | 2022-05-22 23:42 | PC.NURSE ---
this rn and additional rn assisted pt back into bed at 2315. pt getting out of bed at this time. bed linens wet. linens changed at this time. pt redirected back to bed. Dr. Flores at bedside at this time assessed pt. awaiting orders at this time
--- NOTE | 2022-05-23 00:08 | ED.CHESTPAIN ---
HPI - Chest Pain General Chief Complaint: Chest Pain Stated Complaint: CHEST PAIN Time Seen by Provider: 05/22/22 23:05 Source: EMS Mode of arrival: EMS Limitations: altered mental status History of Present Illness HPI narrative: Patient comes in the emergency room from [facility]. Patient has history of dementia and is nonverbal at baseline. According to EMS, the staff reported that the patient had chest pain. However, patient is nonverbal, seems that the patient grabbed his chest for a few seconds and concluded that patient was having chest pain and decided to call 911 and have the patient be checked at the hospital. EMS attempted giving the patient aspirin and nitro, patient refused. Here in the emergency room, patient is not grabbing his chest or abdomen. Unfortunately, we were unable to give any further history from the patient. Related Data Home Medications Medication Instructions Recorded Confirmed Calcium + Vitamin D 600 mg PO DAILY 12/03/20 12/03/20 acetaminophen 325 mg tablet 650 mg PO Q6H PRN Pain 12/03/20 12/03/20 amlodipine 5 mg tablet 7.5 mg PO DAILY 12/03/20 12/03/20 apixaban 5 mg tablet (Eliquis) 5 mg PO BID 12/03/20 12/03/20 atorvastatin 40 mg tablet (Lipitor) 40 mg PO BEDTIME 12/03/20 12/03/20 bisacodyl 10 mg rectal suppository 10 mg NJ DAILY PRN Constipation 12/03/20 12/03/20 docusate sodium 100 mg capsule 100 mg PO DAILY 12/03/20 12/03/20 (Colace) levetiracetam 500 mg tablet 500 mg PO BID 12/03/20 12/03/20 (Keppra) lisinopril 5 mg tablet 5 mg PO DAILY 12/03/20 12/03/20 magnesium hydroxide 400 mg/5 mL 400 mg PO DAILY PRN Constipation 12/03/20 12/03/20 oral suspension (Milk of Magnesia) metoprolol tartrate 25 mg tablet 12.5 mg PO BID 12/03/20 12/03/20 oxcarbazepine 300 mg tablet 300 mg PO BID 12/03/20 12/03/20 quetiapine 25 mg tablet 25 mg PO BEDTIME 12/03/20 12/03/20 sodium phosphates 19 gram-7 118 ml NJ DAILY PRN Constipation 12/03/20 12/03/20 gram/118 mL enema (Fleet Enema) trazodone 50 mg tablet 25 mg PO BEDTIME PRN Sleep 12/03/20 12/03/20 allopurinol 100 mg tablet 2 tab PO DAILY 06/01/21 apixaban 5 mg tablet (Eliquis) 1 tab PO BID 06/01/21 Previous Rx's Medication Instructions Recorded loperamide 2 mg capsule 2 mg PO Q4H PRN loose stool #14 06/02/21 caps Allergies Allergy/AdvReac Type Severity Reaction Status Date / Time hydrochlorothiazide Allergy Unknown Verified 12/03/20 09:33 niacin Allergy Unknown Verified 12/03/20 09:33 nifedipine Allergy Unknown Verified 12/03/20 09:33 Review of Systems Review of Systems: Yes Unobtainable due to mental condition [facility] Past Medical History Medical History Bradycardia COPD (chronic obstructive pulmonary disease) Dementia Dysphagia Gout History of pulmonary embolism Hyperlipidemia Hypertension Hyponatremia Kidney disease Metabolic encephalopathy Seizure Social History Social History Household Members: None Housing: Alf Do you presently have visiting nurse or other home services: No Unable to assess alcohol history related to: Unknown Patient Tobacco Use Status: Tobacco use Unknown Advance Directives: Yes Advance Directives on File: Yes Advance Directives Date on File: 12/03/20 Current occupational status: retired Physical Exam Vital Signs: Vital Signs: Last Vital Signs Temp 98.0 F 05/22/22 21:50 Pulse 75 05/22/22 22:38 Resp 27 H 05/22/22 22:38 BP 187/89 H 05/22/22 22:38 Pulse Ox 95 05/22/22 21:50 O2 Del Method 05/22/22 21:50 BMI result Body Mass Index 22.7 Const: Other: Appearance: Alert. No acute distress. Seems restless, wanting to get out of bed and walk Eyes: Pupils equal, round and reactive to light. ENT: Pharynx normal. Neck: Normal inspection. Neck supple. No lymph nodes noted. No crepitus CVS: Normal heart rate and rhythm. Pulses normal. Normal S1 and S2 Respiratory: No respiratory distress. Breath sounds normal. No Wheezing. No rales Abdomen: Soft and nontender. No distention. Skin: Skin warm and dry. Normal skin color. Normal skin turgor. Extremities: No lower extremity edema. No Lacerations. No Rash Neuro: Unable to participate in cranial nerve assessment Course Course Course Narrative: It is unclear if patient is actually having chest pain or abdominal pain. We will get basic labs. On physical exam, patient did not seem to have any abdominal tenderness, patient is not grabbing his chest as the staff from the [facility] reported EKG shows sinus rhythm, heart rate 82, no ST segment depression or elevation, no T-wave inversion, QTC 420. All labs, KUB and chest x-ray pending Sign-out given to Dr. Mukherjee Discharge Plan Discharge Clinical Impression: Chest pain Patient Disposition: Still a Patient Prescriptions: No Action amlodipine 5 mg Tablet 7.5 mg PO DAILY quetiapine 25 mg Tablet 25 mg PO BEDTIME atorvastatin [Lipitor] 40 mg Tablet 40 mg PO BEDTIME acetaminophen 325 mg Tablet 650 mg PO Q6H PRN (Reason: Pain) trazodone 50 mg Tablet 25 mg PO BEDTIME PRN (Reason: Sleep) levetiracetam [Keppra] 500 mg Tablet 500 mg PO BID oxcarbazepine 300 mg Tablet 300 mg PO BID magnesium hydroxide [Milk of Magnesia] 400 mg/5 mL Suspension 400 mg PO DAILY PRN (Reason: Constipation) bisacodyl 10 mg Suppository 10 mg NJ DAILY PRN (Reason: Constipation) Fleet Enema 19-7 gram/118 mL Enema 118 ml NJ DAILY PRN (Reason: Constipation) docusate sodium [Colace] 100 mg Capsule 100 mg PO DAILY lisinopril 5 mg Tablet 5 mg PO DAILY metoprolol tartrate 25 mg Tablet 12.5 mg PO BID Eliquis 5 mg Tablet 5 mg PO BID Calcium + Vitamin D tablet 600 mg PO DAILY allopurinol 100 mg tablet 2 tab PO DAILY Eliquis 5 mg tablet 1 tab PO BID loperamide 2 mg capsule 2 mg PO Q4H PRN (Reason: loose stool) Qty: 14 0RF Rx Instructions: administer after each loose stool until symptoms controlled; do not exceed 8 mg per 24 hrs
[2022-05-23 00:37] LABS: MANUAL DIFF FLAG NO
--- NOTE | 2022-05-23 00:38 | PC.NURSE ---
pt desatting to 87% RA. this rn and additional rn attempted to place pt on 2L NC. pt non compliant. NC placed pt removed NC. Pt boosted up in bed and HOB elevated. SpO2 89-91% RA. Dr. Flores notified at this time. no new orders
[2022-05-23 00:39] VITALS: BP 178/81; PULSE 74; RESP 20; TEMP 36.8; O2SAT 90
[2022-05-23 00:41] LABS: Basophils Percent Auto 0.2 % (0-2); Eosinophils Absolute Auto 0.2 X10*3/uL (0.0-0.4); Hematocrit 42.3 % (42.0-52.0); Hemoglobin 14.2 g/dl (14.0-18.0); Imm Gran Abs Auto 0.04 X10*3/uL (0.00-0.03); Imm Gran Pct Auto 0.4 % (0.0-0.4); Lymphocytes Absolute Auto 1.4 X10*3/uL (1.2-4.9); Lymphocytes Percent Auto 14.9 % (20-40); Mean Corpuscular HGB Conc 33.6 g/dl (31.0-36.0); Mean Corpuscular Hemoglobin 31.3 pg (27.0-33.0); Mean Corpuscular Volume 93.4 fL (80.0-98.0); Mean Platelet Volume 9.5 fL (9.4-12.4); Monocytes Absolute Auto 0.6 X10*3/uL (0.1-1.2); Monocytes Percent Auto 6.5 % (2-11); Neutrophils Absolute Auto 7.2 x10*3/uL (2.0-8.3); Platelet Count 232 X10*3/uL (160-400); Red Blood Count 4.53 X10*6/uL (4.60-5.80); Red Cell Distribution Width 13.4 % (11.0-16.0); White Blood Count 9.4 X10*3/uL (4.8-10.8)
[2022-05-23 01:03] LABS: Alanine Aminotransferase 15 U/L (0-40); Albumin Level 3.9 g/dL (3.5-5.0); Alkaline Phosphatase 93 U/L (39-117); Anion Gap 12 (12-20); Aspartate Amino Transferase 15 U/L (5-37); Bilirubin Direct 0.2 mg/dL (0.0-0.5); Blood Urea Nitrogen 34 mg/dL (9-16); Carbon Dioxide 24 mmol/L (22-29); Chloride 108 mmol/L (96-108); Creatinine Clr Calc Pharmacy 38.6; Estimated Glomerular Filt Rate 47; Glucose Random 135 mg/dL (60-115); Lipase 59 U/L (8-78); Magnesium 1.9 mg/dL (1.6-2.6); Potassium 4.3 mmol/L (3.3-5.1); Sodium 140 mmol/L (135-145)
[2022-05-23 01:23] LABS: COVID-19 Test Negative (Negative); IDNOW Serial# BCCEAD1C
[2022-05-23 01:27] LABS: Troponin-I High Sensitivity 7.1 ng/L (<3.5-35.0)
--- NOTE | 2022-05-23 01:37 | MHC.EDTECH ---
pt was incontinent of urine ,care given and bedding change ,warm blanket given ,pt call obrien within reach .
[2022-05-23 01:47] VITALS: BP 179/90; PULSE 80; RESP 30; O2SAT 92
[2022-05-23 01:50] LABS: Bilirubin Total 0.3 mg/dL (0.0-1.0)
[2022-05-23 02:00] VITALS: BP 176/90; PULSE 80; RESP 20; TEMP 36.7; O2SAT 90
[2022-05-23 04:00] VITALS: BP 183/97; PULSE 77; RESP 20; TEMP 36.2; O2SAT 94
--- NOTE | 2022-05-23 04:03 | PC.NURSE ---
pt up for discharge. this rn discussed with munitions factory worker, who will reach out to ems to book ambulance ride back to [facility]. awaiting confirmation
--- NOTE | 2022-05-23 04:20 | MHC.EDTECH ---
@[phone] CALL PLACED TO [facility] FOR BLS TX BACK TO [facility] ANSWERS, TAKES PT INFO THEN GIVES A 06:30 AM ETA DUE TO RESOURCES
[2022-05-23 06:01] VITALS: BP 174/76; PULSE 65; RESP 31; O2SAT 97
--- NOTE | 2022-05-23 06:03 | PC.NURSE ---
pt incontinent of urine. this rn changed bed linens and pad. boosted pt up in bed and repositioned to L side. pt provided with warm blankets at this time
== END 2022-05-23 07:08 | disposition skilled nursing facility (03) ==
PROVIDERS: Emergency Provider Emergency Medicine
DX: R07.9 Chest pain, unspecified (principal); Z20.822 Contact with and (suspected) exposure to COVID-19; I10 Essential (primary) hypertension; E78.5 Hyperlipidemia, unspecified; F03.90 Unspecified dementia, unspecified severity, without behavioral disturbance, psychotic disturbance, mood disturbance, and anxiety; Z79.01 Long term (current) use of anticoagulants; Z79.02 Long term (current) use of antithrombotics/antiplatelets; Z79.899 Other long term (current) drug therapy
CPT/HCPCS: 36415; 71045; 74018; 80048; 80076; 83690; 83735; 84484; 85025; 87635; 93005; 99283; 99284

== ENCOUNTER 2022-06-08 13:47 | Emergency (ER) | payer MEDICARE, SELFPAY ==
--- NOTE | ~2022-06-08 | XR_ITS ---
EXAMINATION: XR CHEST CLINICAL INFORMATION: Weakness COMPARISON: Chest x-ray 05/23/2022 TECHNIQUE: Frontal view of the chest was obtained. FINDINGS: The lungs are hypoexpanded but clear of acute process. There is a rounded nodule with linear scarring or atelectasis left lung base. Rest of the lungs are clear. The heart size and pulmonary vascularity is normal. No gross bony abnormality seen. XR/XR chest 1V IMPRESSION: 1. No acute cardiopulmonary process seen. 2. There is a rounded nodule with linear scarring or atelectasis left lung base.
[2022-06-08 13:56] VITALS: BP 153/70; PULSE 82; O2SAT 99
--- NOTE | 2022-06-08 13:59 | ECG_ITS ---
Test Reason : WEAKNESS Blood Pressure : / mmHG Vent. Rate : 084 BPM Atrial Rate : 084 BPM P-R Int : 146 ms QRS Dur : 094 ms QT Int : 376 ms P-R-T Axes : 052 032 063 degrees QTc Int : 444 ms Normal sinus rhythm Normal ECG When compared with ECG of 22-MAY-2022 21:52, No significant change was found Referred By: Zainab Melgar Electronically Signed By:VOLODYMYR HA
[2022-06-08 14:00] VITALS: BP 164/76; PULSE 80; RESP 16; TEMP 36.6; O2SAT 94; BMI 21.7
--- NOTE | 2022-06-08 14:36 | ED.WEAKNESS ---
HPI - Weakness General Chief complaint: Weakness Stated complaint: General Weakness Time Seen by Provider: 06/08/22 13:58 Source: EMS Mode of arrival: EMS Limitations: altered mental status and physical limitation History of Present Illness HPI Narrative: 87-year-old male past medical history bradycardia, COPD, advanced dementia, dysphagia, gout, HTN,, kidney disease, and history of a pulmonary embolism presents to the emergency department, by EMS, from the dementia unit at [facility] with concerns of increased weakness, cough, congestion for the last couple of days. Per staff at [facility], patient is mostly nonverbal at baseline and normally ambulatory, however; he has been too weak to walk. Due to advanced dementia and mental status, review of systems difficult to obtain as pt is unable to answer questions Onset (ago): day(s) Related Data Home Medications Medication Instructions Recorded Confirmed Calcium + Vitamin D 600 mg PO DAILY 12/03/20 12/03/20 acetaminophen 325 mg tablet 650 mg PO Q6H PRN Pain 12/03/20 12/03/20 amlodipine 5 mg tablet 7.5 mg PO DAILY 12/03/20 12/03/20 apixaban 5 mg tablet (Eliquis) 5 mg PO BID 12/03/20 12/03/20 atorvastatin 40 mg tablet (Lipitor) 40 mg PO BEDTIME 12/03/20 12/03/20 bisacodyl 10 mg rectal suppository 10 mg AL DAILY PRN Constipation 12/03/20 12/03/20 docusate sodium 100 mg capsule 100 mg PO DAILY 12/03/20 12/03/20 (Colace) levetiracetam 500 mg tablet 500 mg PO BID 12/03/20 12/03/20 (Keppra) lisinopril 5 mg tablet 5 mg PO DAILY 12/03/20 12/03/20 magnesium hydroxide 400 mg/5 mL 400 mg PO DAILY PRN Constipation 12/03/20 12/03/20 oral suspension (Milk of Magnesia) metoprolol tartrate 25 mg tablet 12.5 mg PO BID 12/03/20 12/03/20 oxcarbazepine 300 mg tablet 300 mg PO BID 12/03/20 12/03/20 quetiapine 25 mg tablet 25 mg PO BEDTIME 12/03/20 12/03/20 sodium phosphates 19 gram-7 118 ml AL DAILY PRN Constipation 12/03/20 12/03/20 gram/118 mL enema (Fleet Enema) trazodone 50 mg tablet 25 mg PO BEDTIME PRN Sleep 12/03/20 12/03/20 allopurinol 100 mg tablet 2 tab PO DAILY 06/01/21 apixaban 5 mg tablet (Eliquis) 1 tab PO BID 06/01/21 Previous Rx's Medication Instructions Recorded loperamide 2 mg capsule 2 mg PO Q4H PRN loose stool #14 06/02/21 caps Allergies Allergy/AdvReac Type Severity Reaction Status Date / Time hydrochlorothiazide Allergy Unknown Verified 12/03/20 09:33 niacin Allergy Unknown Verified 12/03/20 09:33 nifedipine Allergy Unknown Verified 12/03/20 09:33 Review of Systems Review of Systems: Yes Unobtainable due to mental status [facility] Past Medical History Source: old records reviewed Medical History Bradycardia COPD (chronic obstructive pulmonary disease) Dementia Dysphagia Gout History of pulmonary embolism Hyperlipidemia Hypertension Hyponatremia Kidney disease Metabolic encephalopathy Seizure Social History Social History Household Members: None Housing: [facility] Do you presently have visiting nurse or other home services: No Unable to assess alcohol history related to: Unknown Patient Tobacco Use Status: Tobacco use Unknown Advance Directives: Yes Advance Directives on File: Yes Advance Directives Date on File: 12/03/20 Current occupational status: retired Physical Exam Vital Signs: Vital Signs: Last Vital Signs Temp 97.8 F 06/08/22 14:00 Pulse 82 06/08/22 16:31 Resp 16 06/08/22 16:31 BP 162/72 H 06/08/22 16:31 Pulse Ox 92 06/08/22 16:31 O2 Del Method 06/08/22 16:31 BMI result Body Mass Index 21.7 Nursing notes and vital signs reviewed. GENERAL APPEARANCE: Alert, oriented to person only, no acute distress HENMT: Normal to inspection, atraumatic, face symmetrical. Normal external ears, nose, and oropharynx clear. EYE: PERRLA, EOM intact, structures appear normal NECK: Supple without lymphadenopathy. No stiffness or restricted ROM. CHEST: Normal to inspection HEART: Normal rate and regular rhythm, normal S1/S2 LUNGS: LS diminished. No crackles, wheezes, or rhonchi auscultated ABDOMEN: Soft, nontender, nondistended. Normal bowel sounds noted BACK: No obvious deformity EXTREMITIES: Moving all extremities spontaneously, does not follow commands. No cyanosis, clubbing, or edema. Normal capillary refill. NEUROLOGICAL: Alert, oriented to person only SKIN: Warm and dry without any lesions, rash, or visible sores Course Course Course Narrative: 1830: UA collected and results pending 1850: Sign out given to RECREATIONAL ASSISTANT Jewell Simon Medications Administered Discontinued Medications Generic Name Dose Route Start Last Admin Trade Name Freq PRN Reason Stop Dose Admin Quetiapine Fumarate 12.5 mg 06/08/22 16:21 06/08/22 17:03 Quetiapine Fumarate 25 Mg Tablet PO 06/08/22 16:22 12.5 mg ONCE ONE Administration Medical Decision Making Medical Decision Making [facility] Narrative: 87-year-old male past medical history bradycardia, COPD, advanced dementia, dysphagia, gout, HTN,, kidney disease, and history of a pulmonary embolism presents to the emergency department, by EMS, from the dementia unit at [facility] with concerns of increased weakness, cough, congestion for the last couple of days. Per staff at [facility], patient is mostly nonverbal at baseline and normally ambulatory, however; he has been too weak to walk. EKG normal sinus rhythm, when compared with EKG done 05/22/2022, no significant changes. Serology negative for influenza and COVID. Blood work remarkable for elevated WBC of 12.7. Urinalysis sent to rule out infection, still pending results at 6:30 p.m. Patient is safe for discharge at this time back to [facility]. HPI, PE, diagnostics, and plan discussed with patient and family with no unanswered questions at this time. Patient educated to return to the emergency department with new, worsening, or concerning emergent symptoms. Recommended to follow-up with their primary care provider for further treatment and management. *Refer to Course for additional information on consultations, diagnostic interpretation, consultations, emergency department stay, conversations with patient and family, shared decision making with patient, and more information on medical decision making* Lab Data [facility] Lab Attestation statement: I reviewed the patient's lab results. 06/08/22 14:38 06/08/22 17:17 Labs: Lab Results 06/08/22 06/08/22 06/08/22 Range/Units 14:32 14:32 14:38 WBC 12.7 H (4.8-10.8) X10*3/uL RBC 4.84 (4.60-5.80) X10*6/uL Hgb 15.2 (14.0-18.0) g/dl Hct 45.3 (42.0-52.0) % MCV 93.6 (80.0-98.0) fL MCH 31.4 (27.0-33.0) pg MCHC 33.6 (31.0-36.0) g/dl RDW 13.9 (11.0-16.0) % Plt Count 234 (160-400) X10*3/uL MPV 9.7 (9.4-12.4) fL Immature Gran % (Auto) 0.4 (0.0-0.4) % Neut % (Auto) 86.5 H (45-73) % Lymph % (Auto) 7.0 L (20-40) % Larue % (Auto) 5.6 (2-11) % Eos % (Auto) 0.3 (0-4) % Baso % (Auto) 0.2 (0-2) % Lymph # (Auto) 0.9 L (1.2-4.9) X10*3/uL Larue # (Auto) 0.7 (0.1-1.2) X10*3/uL Eos # (Auto) 0.0 (0.0-0.4) X10*3/uL Baso # (Auto) 0.0 (0.0-0.2) X10*3/uL Abs Immat Gran (auto) 0.05 H (0.00-0.03) X10*3/uL Absolute Neuts (auto) 10.9 H (2.0-8.3) x10*3/uL Absolute Nucleated RBC 0.000 (0.0-0.012) X10*3/uL Nucleated RBC % (auto) 0.0 (0.0-0.2) /100WBC Sodium (135-145) mmol/L Potassium (3.3-5.1) mmol/L Chloride (96-108) mmol/L Carbon Dioxide (22-29) mmol/L Anion Gap (12-20) BUN (9-16) mg/dL Creatinine (0.5-1.4) mg/dL Estim Creat Clear Calc Estimated GFR Random Glucose (60-115) mg/dL Calcium (8.4-10.2) mg/dL Total Bilirubin (0.0-1.0) mg/dL AST (5-37) U/L ALT (0-40) U/L Alkaline Phosphatase (39-117) U/L Troponin I High Sens (<3.5-35.0) ng/L Total Protein (6.5-8.0) g/dL Albumin (3.5-5.0) g/dL COVID-19 (REZA) Negative (Negative) COVID-19 Clin Com See Note Influenza Type A (CAM) Negative (Negative) Influenza Type B (CAM) Negative (Negative) Influenza A & B Note See Note 06/08/22 06/08/22 Range/Units 14:38 17:17 WBC (4.8-10.8) X10*3/uL RBC (4.60-5.80) X10*6/uL Hgb (14.0-18.0) g/dl Hct (42.0-52.0) % MCV (80.0-98.0) fL MCH (27.0-33.0) pg MCHC (31.0-36.0) g/dl RDW (11.0-16.0) % Plt Count (160-400) X10*3/uL MPV (9.4-12.4) fL Immature Gran % (Auto) (0.0-0.4) % Neut % (Auto) (45-73) % Lymph % (Auto) (20-40) % Larue % (Auto) (2-11) % Eos % (Auto) (0-4) % Baso % (Auto) (0-2) % Lymph # (Auto) (1.2-4.9) X10*3/uL Larue # (Auto) (0.1-1.2) X10*3/uL Eos # (Auto) (0.0-0.4) X10*3/uL Baso # (Auto) (0.0-0.2) X10*3/uL Abs Immat Gran (auto) (0.00-0.03) X10*3/uL Absolute Neuts (auto) (2.0-8.3) x10*3/uL Absolute Nucleated RBC (0.0-0.012) X10*3/uL Nucleated RBC % (auto) (0.0-0.2) /100WBC Sodium 142 (135-145) mmol/L Potassium 4.3 (3.3-5.1) mmol/L Chloride 109 H (96-108) mmol/L Carbon Dioxide 24 (22-29) mmol/L Anion Gap 13 (12-20) BUN 32 H (9-16) mg/dL Creatinine 1.43 H (0.5-1.4) mg/dL Estim Creat Clear Calc 36.5 Estimated GFR 47 Random Glucose 101 (60-115) mg/dL Calcium 9.1 (8.4-10.2) mg/dL Total Bilirubin 0.5 (0.0-1.0) mg/dL AST 15 (5-37) U/L ALT 10 (0-40) U/L Alkaline Phosphatase 104 (39-117) U/L Troponin I High Sens 6.7 (<3.5-35.0) ng/L Total Protein 7.4 (6.5-8.0) g/dL Albumin 4.0 (3.5-5.0) g/dL COVID-19 (REZA) (Negative) COVID-19 Clin Com Influenza Type A (CAM) (Negative) Influenza Type B (CAM) (Negative) Influenza A & B Note Independent Interpretation I performed an independent interpretation of an: EKG Interpretation: Have independently reviewed the EKG showing normal sinus rhythm with no changes compared to EKG done on 05/22/2022. Vent. Rate : 084 BPM ? ? Atrial Rate : 084 BPM ?? P-R Int : 146 ms? QRS Dur : 094 ms ? ? QT Int : 376 ms ? ? ? P-R-T Axes : 052 032 063 degrees ?? QTc Int : 444 ms ? Normal sinus rhythm Normal ECG When compared with ECG of 22-MAY-2022 21:52, No significant change was found Radiology Impression Discussion of test interpretation with radiology: I have reviewed the radiologist's reading. Radiologist Impression: I have independently reviewed the chest x-ray showing no acute cardiopulmonary processes, and a rounded nodule with linear scarring or atelectasis left lung base. EXAMINATION: XR CHEST CLINICAL INFORMATION: Weakness COMPARISON: Chest x-ray 05/23/2022 TECHNIQUE: Frontal view of the chest was obtained. FINDINGS: The lungs are hypoexpanded but clear of acute process. There is a rounded nodule with linear scarring or atelectasis left lung base. Rest of the lungs are clear. The heart size and pulmonary vascularity is normal. No gross bony abnormality seen. XR/XR chest 1V IMPRESSION: 1.? No acute cardiopulmonary process seen. 2.? There is a rounded nodule with linear scarring or atelectasis left lung base. ? Dictated By: Marquise Hernandez MD Signed By: <Electronically signed by Marquise Hernandez MD in OV> 06/08/22 1502 DD/ 1428 TD/TT:? 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 Instructions: Upper Respiratory Infection (ED) Prescriptions: No Action amlodipine 5 mg Tablet 7.5 mg PO DAILY quetiapine 25 mg Tablet 25 mg PO BEDTIME atorvastatin [Lipitor] 40 mg Tablet 40 mg PO BEDTIME acetaminophen 325 mg Tablet 650 mg PO Q6H PRN (Reason: Pain) trazodone 50 mg Tablet 25 mg PO BEDTIME PRN (Reason: Sleep) levetiracetam [Keppra] 500 mg Tablet 500 mg PO BID oxcarbazepine 300 mg Tablet 300 mg PO BID magnesium hydroxide [Milk of Magnesia] 400 mg/5 mL Suspension 400 mg PO DAILY PRN (Reason: Constipation) bisacodyl 10 mg Suppository 10 mg AL DAILY PRN (Reason: Constipation) Fleet Enema 19-7 gram/118 mL Enema 118 ml AL DAILY PRN (Reason: Constipation) docusate sodium [Colace] 100 mg Capsule 100 mg PO DAILY lisinopril 5 mg Tablet 5 mg PO DAILY metoprolol tartrate 25 mg Tablet 12.5 mg PO BID Eliquis 5 mg Tablet 5 mg PO BID Calcium + Vitamin D tablet 600 mg PO DAILY allopurinol 100 mg tablet 2 tab PO DAILY Eliquis 5 mg tablet 1 tab PO BID loperamide 2 mg capsule 2 mg PO Q4H PRN (Reason: loose stool) Qty: 14 0RF Rx Instructions: administer after each loose stool until symptoms controlled; do not exceed 8 mg per 24 hrs Referrals: [facility] Family Medicine [Provider Group] [facility] Primary [facility] [Provider Group] [facility] Primary [facility] [Provider Group] Print Language: Uzbek
[2022-06-08 14:46] LABS: MANUAL DIFF FLAG NO
[2022-06-08 14:48] LABS: Basophils Percent Auto 0.2 % (0-2); Eosinophils Percent Auto 0.3 % (0-4); Hematocrit 45.3 % (42.0-52.0); Hemoglobin 15.2 g/dl (14.0-18.0); Imm Gran Abs Auto 0.05 X10*3/uL (0.00-0.03); Imm Gran Pct Auto 0.4 % (0.0-0.4); Lymphocytes Absolute Auto 0.9 X10*3/uL (1.2-4.9); Mean Corpuscular HGB Conc 33.6 g/dl (31.0-36.0); Mean Corpuscular Hemoglobin 31.4 pg (27.0-33.0); Mean Corpuscular Volume 93.6 fL (80.0-98.0); Mean Platelet Volume 9.7 fL (9.4-12.4); Monocytes Absolute Auto 0.7 X10*3/uL (0.1-1.2); Monocytes Percent Auto 5.6 % (2-11); Neutrophils Absolute Auto 10.9 x10*3/uL (2.0-8.3); Neutrophils Percent Auto 86.5 % (45-73); Platelet Count 234 X10*3/uL (160-400); Red Blood Count 4.84 X10*6/uL (4.60-5.80); Red Cell Distribution Width 13.9 % (11.0-16.0); White Blood Count 12.7 X10*3/uL (4.8-10.8)
[2022-06-08 15:02] LABS: COVID-19 Test Negative (Negative); IDNOW Serial# 6674DD1D
[2022-06-08 15:04] LABS: IDNOW Serial# 55D5AD1C; Influenza A Negative (Negative); Influenza B2 Negative (Negative)
[2022-06-08 15:07] LABS: Troponin-I High Sensitivity 6.7 ng/L (<3.5-35.0)
[2022-06-08 16:31] VITALS: BP 162/72; PULSE 82; RESP 16; O2SAT 92
[2022-06-08] MEDS: QUEtiapine Fumarate 25 MG TABLET 12.5 MG PO (17:03)
[2022-06-08 17:49] LABS: Alanine Aminotransferase 10 U/L (0-40); Alkaline Phosphatase 104 U/L (39-117); Anion Gap 13 (12-20); Aspartate Amino Transferase 15 U/L (5-37); Bilirubin Total 0.5 mg/dL (0.0-1.0); Blood Urea Nitrogen 32 mg/dL (9-16); Calcium 9.1 mg/dL (8.4-10.2); Carbon Dioxide 24 mmol/L (22-29); Chloride 109 mmol/L (96-108); Creatinine Clr Calc Pharmacy 36.5; Estimated Glomerular Filt Rate 47; Glucose Random 101 mg/dL (60-115); Potassium 4.3 mmol/L (3.3-5.1); Sodium 142 mmol/L (135-145); Total Protein 7.4 g/dL (6.5-8.0)
[2022-06-08 19:58] VITALS: BP 176/91; PULSE 83; RESP 16; TEMP 36.8; O2SAT 97
[2022-06-08 20:04] LABS: Appearance Urine Hazy; Color Urine Yellow; Glucose Urine UA Negative (Negative); Leukocyte Esterase Urine Small (1+) (Negative); Nitrite Urine Negative (Negative); UMIC TRIGGER UACC YES; Urine Blood Negative (Negative); Urine Ketones Trace mg/dL (Negative); Urine Protein 100 (2+) mg/dL (Neg-Trace)
[2022-06-08 20:11] LABS: Bacteria Urine 4+ (None Seen); Hyaline Casts Urine 0-2 /LPF (0-2); RBC Urine 0-2 /HPF (0-2); Squamous Epithelial Cell Urine 0-2 /HPF (0-2); UACC Culture Trigger YES
[2022-06-08] MEDS: cefTRIAXone sodium 1 GM in 0.9 % Sodium Chloride 50 ML IV (20:46)
[2022-06-08 20:55] VITALS: BP 187/85
[2022-06-08 22:00] VITALS: BP 184/86; PULSE 85; RESP 16; TEMP 36.2; O2SAT 97
--- NOTE | 2022-06-08 22:05 | PC.NURSE ---
PT resting quietly, no apparent distress. Non verbal pain score 2.
--- NOTE | 2022-06-08 22:10 | MHC.EDTECH ---
Mal called at 220 for a Bls transfer back to [facility],spoke with Sonia ESCAMILLA 30Mins.Rn aware
--- NOTE | 2022-06-08 22:34 | PC.NURSE ---
IV removed, nurse to nurse given to Autumn at [facility].
== END 2022-06-08 22:34 | disposition skilled nursing facility (03) ==
PROVIDERS: Nurse Practitioner Family; Emergency Provider Emergency Medicine Emergency Medical Services
DX: J06.9 Acute upper respiratory infection, unspecified (principal); N39.0 Urinary tract infection, site not specified; I10 Essential (primary) hypertension; E78.5 Hyperlipidemia, unspecified; F03.90 Unspecified dementia, unspecified severity, without behavioral disturbance, psychotic disturbance, mood disturbance, and anxiety; Z79.01 Long term (current) use of anticoagulants; Z79.899 Other long term (current) drug therapy; Z20.822 Contact with and (suspected) exposure to COVID-19
CPT/HCPCS: 71045; 80053; 81001; 84484; 85025; 87086; 87088; 87502; 87635; 93005; 96365; 99285; J0696

== ENCOUNTER 2022-11-22 08:43 | Inpatient (IN) | payer MEDICARE, SELFPAY ==
--- NOTE | ~2022-11-22 | CT_ITS ---
EXAMINATION: CT HEAD WITHOUT CONTRAST (STROKE PROTOCOL) CLINICAL INFORMATION: Stroke protocol. Acute mental status change. COMPARISON: None available. TECHNIQUE: Contiguous axial imaging was performed from the skull base to vertex without intravenous administration of contrast. This CT examination was performed using dose optimization techniques as appropriate, variously including the following: *Automated exposure control *Adjustment of mA and/or kV according to patient size (this includes techniques or standardized protocols for targeted exams where dose is matched to indication/reason for exam; i.e. extremities or head) *Use of iterative reconstruction technique DLP: 1129 mGy-cm FINDINGS: There is patchy and confluent hypoattenuation within supratentorial white matter and there appear to be old small lacunar infarcts in the gangliocapsular regions. There are regions of hypoattenuation within loss of alba-white differentiation of left and right temporal lobes and right occipital lobe. It is difficult to determine whether there might be acute (or subacute) superimposed on chronic infarction in the right occipital lobe. Unfortunately, there are no comparison exams. No intracranial hemorrhage. No extra-axial surface collection, focal mass effect or midline shift. Moderate parenchymal volume loss with commensurate prominence of ventricles and sulci; no hydrocephalus. The calvarium is intact. The visualized paranasal sinuses and mastoid air cells are well aerated. The temporomandibular joints and orbits are unremarkable. There is calcium deposition (likely calcium pyrophosphate dihydrate crystal deposition) along the transverse ligament posterior to the dens. CT/CT head for stroke IMPRESSION: * No intracranial hemorrhage, mass or midline shift. 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 This critical result was discussed with Dr. Hagen at 9:08 am on 11/22/2022. It was ascertained that the content and urgency of the report was understood at the time of direct communication.
--- NOTE | ~2022-11-22 | XR_ITS ---
EXAMINATION: XR CHEST CLINICAL INFORMATION: Acute mental status changes. COMPARISON: 06/08/2022 TECHNIQUE: Frontal view of the chest was obtained. FINDINGS: The lungs are hypoexpanded. No focal consolidation. No pleural effusion. Cardiac silhouette is unchanged. XR/XR chest 1V IMPRESSION: No acute abnormality.
--- NOTE | 2022-11-22 08:51 | ED.AMS ---
HPI - Altered Mental Status General Chief Complaint: Stroke Stated Complaint: RT side droop per EMS Time Seen by Provider: 11/22/22 08:48 Source: EMS Mode of arrival: EMS Limitations: altered mental status History of Present Illness HPI narrative: 87-year-old male with history of severe dementia, seizure disorder presents with acute mental status changes. Patient was noted to be slumping to the right side and no chair when previously being seen normal at 730 this morning. Symptoms are described as severe. Normally he is more combative and alert. There is no witnessed seizure activity. EMS reports seeing a mild right facial droop upon their evaluation with drooling. Is not unusual for the patient to drool apparently. Apparently patient is showing some steady improvement and is generalized neurologic status history. Related Data Home Medications Medication Instructions Recorded Confirmed acetaminophen 325 mg tablet 650 mg PO Q6H PRN Pain 12/03/20 11/22/22 amlodipine 5 mg tablet 5 mg PO DAILY 12/03/20 11/22/22 atorvastatin 40 mg tablet (Lipitor) 40 mg PO BEDTIME 12/03/20 11/22/22 bisacodyl 10 mg rectal suppository 10 mg NH DAILY PRN Constipation 12/03/20 11/22/22 docusate sodium 100 mg capsule 200 mg PO DAILY 12/03/20 11/22/22 (Colace) lisinopril 5 mg tablet 5 mg PO DAILY 12/03/20 11/22/22 magnesium hydroxide 400 mg/5 mL 30 ml PO DAILY PRN Constipation 12/03/20 11/22/22 oral suspension (Milk of Magnesia) metoprolol tartrate 25 mg tablet 12.5 mg PO BID 12/03/20 11/22/22 oxcarbazepine 300 mg tablet 300 mg PO BID 12/03/20 11/22/22 sodium phosphates 19 gram-7 118 ml NH DAILY PRN Constipation 12/03/20 11/22/22 gram/118 mL enema (Fleet Enema) allopurinol 100 mg tablet 2 tab PO DAILY 06/01/21 11/22/22 apixaban 5 mg tablet (Eliquis) 1 tab PO BID 06/01/21 11/22/22 amlodipine 2.5 mg tablet 2.5 mg PO DAILY 11/22/22 11/22/22 calcium carbonate 600 mg-vitamin 1 cap PO DAILY 11/22/22 11/22/22 D3 5 mcg (200 unit) capsule (Calcium 600 + D(3)) levetiracetam 100 mg/mL oral 500 mg PO BID 11/22/22 11/22/22 solution multivitamin 1 tab PO DAILY 11/22/22 11/22/22 Allergies Allergy/AdvReac Type Severity Reaction Status Date / Time hydrochlorothiazide Allergy Unknown Verified 12/03/20 09:33 niacin Allergy Unknown Verified 12/03/20 09:33 nifedipine Allergy Unknown Verified 12/03/20 09:33 Review of Systems Review of Systems: Yes Unobtainable due to mental status COUNTS INCLUDE 234 BEDS AT THE [facility] Past Medical History Medical History Bradycardia COPD (chronic obstructive pulmonary disease) Dementia Dysphagia Gout History of pulmonary embolism Hyperlipidemia Hypertension Hyponatremia Kidney disease Metabolic encephalopathy Seizure Social History Social History Household Members: None Housing: Half-Way Do you presently have visiting nurse or other home services: No Unable to assess alcohol history related to: Unknown Patient Tobacco Use Status: Tobacco use Unknown Advance Directives: Yes Advance Directives on File: Yes Advance Directives Date on File: 12/03/20 Current occupational status: retired Physical Exam ED Vital Signs: Vital Signs - 24 hr 11/22/22 08:53 11/22/22 10:27 Temperature 98 F Pulse Rate 92 93 Respiratory Rate 18 19 Blood Pressure 140/61 H 154/77 H Pulse Oximetry 92 92 Oxygen Delivery Method Room Air Room Air BMI result Body Mass Index 22.0 GEN: Well developed, acute distress, alert, non-conversant HEENT: Normocephalic, atraumatic, normal external ears, nose appears normal, no oropharyngeal edema or exudates Eyes: Normal to appearance Neck: Supple, no lymphadenopathy Respiratory: no respiratory distress, clear to auscultation bilaterally Cardiovascular: Regular rate and rhythm, no murmurs rubs or gallops Abdomen: Soft, nontender, nondistended, no guarding, no rebound Back: No CVA tenderness Extremities: No clubbing cyanosis or edema Neurologic: Moves all extremities, withdraws from painful stimuli in all extremities Skin: No rash NIH Stroke Scale Internal: Initial- Upon Arrival Time: 09:26 Level of Consciousness: Alert Level of Consciousness Questions: Answers neither question correctly Level of Consciousness Commands: Performs neither task correctly Best Gaze: Normal Visual: No visual loss (unable to asses) Facial Palsy: Normal Motor Arm (Right): No drift (unable to assess) Motor Arm (Left): No drift (unable to assess) Motor Leg (Right): No drift (unable to assess) Motor Leg (Left): No drift (unable to assess) Limb Ataxia: Absent (unable to assess) Sensory: Normal (unable to assess) Best Language: Mute, global aphasia Dysarthia: Normal (unable to asess) Extinction and Inattention: No abnormality (unable to assess) Score: 7 Course Course Course Narrative: 87-year-old male with history of profound dementia, seizures disorder presents with acute neurologic change in status. There are reports of mild right facial droop. On my evaluation, he is alert but disoriented and non-conversant. He withdraws equally to noxious stimuli. He follows no significant commands. Patient may be on blood thinning medications. He more likely had a seizure they an CVA. To have such a global affect, patient would probably require vertebral basilar stroke and I doubt that at this time. Also it is noted per EMS that his mental status is steadily improving since the initial evaluation. I do not believe this patient is a candidate for tPA on multiple accounts including history seizure, likely seizure as the etiology of symptoms, improvement in his condition and a lack of focal neurologic deficits. I did contact the fitness and wellness coordinator who overall agrees at this time and will discuss this with the neurologist on-call. Reevaluation(s) Reevaluation #1: Received a call from radiologist is suggesting that there might be a subacute occipital CVA. This is a potential exclusionary criteria. Given his profound dementia as well, he remains a non tPA candidate. This was discussed with neurologist, Dr. Mauricio. There is no indication for angiogram per his recommendations. Time: 09:21 Reevaluation #2: Patient has an elevated lactic acid level which I suspect may be due to seizure. I doubt severe sepsis. However, will provide patient with IV fluids. There is no evidence of infection. Afebrile, chest x-ray reveals no evidence pneumonia. He does not have a urinary tract infection. Time: 10:13 Reevaluation #3: The workup is complete at this time. Patient continues to not be at his baseline mental status. Will mid patient for likely encephalopathy. Time: 10:44 Medical Decision Making Medical Decision Making [facility] Narrative: 87-year-old male with profound dementia, seizure disorder presents with what appears to be altered mental status. Patient may have had some right facial droop and some obtained a torrez. EMS reportedly notes improvement. Patient was last seen normal at 730 this morning. My evaluation reveals an alert patient, no facial droop. He withdraws all extremities to painful stimuli. He follows no commands with the exception of gripping. His fish filleter strength was symmetrical with tremulousness bilaterally. Differential diagnosis could include stroke although less likely, more likely seizure, UTI, electrolyte abnormality, hypoglycemia. Patient will have a CT scan of the head. I will order routine laboratory analysis, urinalysis and a straight catheterization. Will re-evaluate the patient frequently. He may require hospitalization due to his current medical condition. Differential Diagnosis Differential Diagnoses: The differential diagnosis associated with the presentation includes (See above) Admission/Observation Consideration of admission/observation: Escalation of care including admission/observation considered Lab Data [facility] Lab Attestation statement: I reviewed the patient's lab results. 11/22/22 09:34 11/22/22 09:33 Labs: Lab Results 11/22/22 11/22/22 11/22/22 Range/Units 09:02 09:04 09:33 WBC (4.8-10.8) X10*3/uL RBC (4.60-5.80) X10*6/uL Hgb (14.0-18.0) g/dl Hct (42.0-52.0) % MCV (80.0-98.0) fL MCH (27.0-33.0) pg MCHC (31.0-36.0) g/dl RDW (11.0-16.0) % Plt Count (160-400) X10*3/uL MPV (9.4-12.4) fL Immature Gran % (Auto) (0.0-0.4) % Neut % (Auto) (45-73) % Lymph % (Auto) (20-40) % [place] % (Auto) (2-11) % Eos % (Auto) (0-4) % Baso % (Auto) (0-2) % Lymph # (Auto) (1.2-4.9) X10*3/uL [place] # (Auto) (0.1-1.2) X10*3/uL Eos # (Auto) (0.0-0.4) X10*3/uL Baso # (Auto) (0.0-0.2) X10*3/uL Abs Immat Gran (auto) (0.00-0.03) X10*3/uL Absolute Neuts (auto) (2.0-8.3) x10*3/uL Absolute Nucleated RBC (0.0-0.012) X10*3/uL Nucleated RBC % (auto) (0.0-0.2) /100WBC PT (10.0-13.1) SEC Whole Blood PT 14.6 H (11.1-13.5) sec INR (0.9-1.1) Whole Blood INR 1.2 H (0.9-1.1) APTT (26.0-36.4) SEC Sodium 145 (135-145) mmol/L Potassium 3.9 (3.3-5.1) mmol/L Chloride 106 (96-108) mmol/L Carbon Dioxide 25 (22-29) mmol/L Anion Gap 18 (12-20) BUN 29 H (9-16) mg/dL Creatinine 1.28 (0.5-1.4) mg/dL Estim Creat Clear Calc 41.4 Estimated GFR 53 POC Glucose 142 H (60-115) mg/dL Random Glucose 130 H (60-115) mg/dL Lactic Acid (0.5-2.0) mmol/L Calcium 9.4 (8.4-10.2) mg/dL Troponin I High Sens (<3.5-35.0) ng/L TSH 2.23 (0.32-4.0) uIU/mL Urine Color Urine Appearance Urine pH (5.0-9.0) Ur Specific [place] (1.005-1.025) Urine Protein (Neg-Trace) mg/dL Urine Glucose (UA) (Negative) mg/dL Urine Ketones (Negative) mg/dL Urine Blood (Negative) Urine Nitrite (Negative) Ur Leukocyte Esterase (Negative) Urine RBC (0-2) /HPF Urine WBC (0-5) /HPF Ur Squamous Epith Cells (0-2) /HPF Urine Bacteria (None Seen) Hyaline Casts (0-2) /LPF Urine Opiates Screen (Not Detect) Urine Fentanyl Screen (Not Detect) Ur Barbiturates Screen (Not Detect) Ur Phencyclidine Scrn (Not Detect) Ur Amphetamines Screen (Not Detect) U Benzodiazepines Scrn (Not Detect) Urine Cocaine Screen (Not Detect) U Marijuana (THC) Screen (Not Detect) Ethyl Alcohol < 10 mg/dL 11/22/22 11/22/22 11/22/22 Range/Units 09:33 09:33 09:34 WBC 10.1 (4.8-10.8) X10*3/uL RBC 4.66 (4.60-5.80) X10*6/uL Hgb 14.8 (14.0-18.0) g/dl Hct 43.1 (42.0-52.0) % MCV 92.5 (80.0-98.0) fL MCH 31.8 (27.0-33.0) pg MCHC 34.3 (31.0-36.0) g/dl RDW 13.4 (11.0-16.0) % Plt Count 208 (160-400) X10*3/uL MPV 9.2 L (9.4-12.4) fL Immature Gran % (Auto) 1.7 H (0.0-0.4) % Neut % (Auto) 83.0 H (45-73) % Lymph % (Auto) 9.6 L (20-40) % [place] % (Auto) 4.6 (2-11) % Eos % (Auto) 0.6 (0-4) % Baso % (Auto) 0.5 (0-2) % Lymph # (Auto) 1.0 L (1.2-4.9) X10*3/uL [place] # (Auto) 0.5 (0.1-1.2) X10*3/uL Eos # (Auto) 0.1 (0.0-0.4) X10*3/uL Baso # (Auto) 0.1 (0.0-0.2) X10*3/uL Abs Immat Gran (auto) 0.17 H (0.00-0.03) X10*3/uL Absolute Neuts (auto) 8.4 H (2.0-8.3) x10*3/uL Absolute Nucleated RBC 0.000 (0.0-0.012) X10*3/uL Nucleated RBC % (auto) 0.0 (0.0-0.2) /100WBC PT (10.0-13.1) SEC Whole Blood PT (11.1-13.5) sec INR (0.9-1.1) Whole Blood INR (0.9-1.1) APTT (26.0-36.4) SEC Sodium (135-145) mmol/L Potassium (3.3-5.1) mmol/L Chloride (96-108) mmol/L Carbon Dioxide (22-29) mmol/L Anion Gap (12-20) BUN (9-16) mg/dL Creatinine (0.5-1.4) mg/dL Estim Creat Clear Calc Estimated GFR POC Glucose (60-115) mg/dL Random Glucose (60-115) mg/dL Lactic Acid 3.5 H* (0.5-2.0) mmol/L Calcium (8.4-10.2) mg/dL Troponin I High Sens 12.6 D (<3.5-35.0) ng/L TSH (0.32-4.0) uIU/mL Urine Color Urine Appearance Urine pH (5.0-9.0) Ur Specific [place] (1.005-1.025) Urine Protein (Neg-Trace) mg/dL Urine Glucose (UA) (Negative) mg/dL Urine Ketones (Negative) mg/dL Urine Blood (Negative) Urine Nitrite (Negative) Ur Leukocyte Esterase (Negative) Urine RBC (0-2) /HPF Urine WBC (0-5) /HPF Ur Squamous Epith Cells (0-2) /HPF Urine Bacteria (None Seen) Hyaline Casts (0-2) /LPF Urine Opiates Screen (Not Detect) Urine Fentanyl Screen (Not Detect) Ur Barbiturates Screen (Not Detect) Ur Phencyclidine Scrn (Not Detect) Ur Amphetamines Screen (Not Detect) U Benzodiazepines Scrn (Not Detect) Urine Cocaine Screen (Not Detect) U Marijuana (THC) Screen (Not Detect) Ethyl Alcohol mg/dL 11/22/22 11/22/22 11/22/22 Range/Units 09:34 09:38 09:39 WBC (4.8-10.8) X10*3/uL RBC (4.60-5.80) X10*6/uL Hgb (14.0-18.0) g/dl Hct (42.0-52.0) % MCV (80.0-98.0) fL MCH (27.0-33.0) pg MCHC (31.0-36.0) g/dl RDW (11.0-16.0) % Plt Count (160-400) X10*3/uL MPV (9.4-12.4) fL Immature Gran % (Auto) (0.0-0.4) % Neut % (Auto) (45-73) % Lymph % (Auto) (20-40) % [place] % (Auto) (2-11) % Eos % (Auto) (0-4) % Baso % (Auto) (0-2) % Lymph # (Auto) (1.2-4.9) X10*3/uL [place] # (Auto) (0.1-1.2) X10*3/uL Eos # (Auto) (0.0-0.4) X10*3/uL Baso # (Auto) (0.0-0.2) X10*3/uL Abs Immat Gran (auto) (0.00-0.03) X10*3/uL Absolute Neuts (auto) (2.0-8.3) x10*3/uL Absolute Nucleated RBC (0.0-0.012) X10*3/uL Nucleated RBC % (auto) (0.0-0.2) /100WBC PT 12.9 (10.0-13.1) SEC Whole Blood PT (11.1-13.5) sec INR 1.1 (0.9-1.1) Whole Blood INR (0.9-1.1) APTT 23.0 L (26.0-36.4) SEC Sodium (135-145) mmol/L Potassium (3.3-5.1) mmol/L Chloride (96-108) mmol/L Carbon Dioxide (22-29) mmol/L Anion Gap (12-20) BUN (9-16) mg/dL Creatinine (0.5-1.4) mg/dL Estim Creat Clear Calc Estimated GFR POC Glucose (60-115) mg/dL Random Glucose (60-115) mg/dL Lactic Acid (0.5-2.0) mmol/L Calcium (8.4-10.2) mg/dL Troponin I High Sens (<3.5-35.0) ng/L TSH (0.32-4.0) uIU/mL Urine Color Yellow Urine Appearance Clear Urine pH 7.0 (5.0-9.0) Ur Specific [place] 1.020 (1.005-1.025) Urine Protein 300 (3+) H (Neg-Trace) mg/dL Urine Glucose (UA) Negative (Negative) mg/dL Urine Ketones Negative (Negative) mg/dL Urine Blood Negative (Negative) Urine Nitrite Negative (Negative) Ur Leukocyte Esterase Negative (Negative) Urine RBC 0-2 (0-2) /HPF Urine WBC 0-5 (0-5) /HPF Ur Squamous Epith Cells 0-2 (0-2) /HPF Urine Bacteria None Seen (None Seen) Hyaline Casts 0-2 (0-2) /LPF Urine Opiates Screen Not Detected (Not Detect) Urine Fentanyl Screen Not Detected (Not Detect) Ur Barbiturates Screen Not Detected (Not Detect) Ur Phencyclidine Scrn Not Detected (Not Detect) Ur Amphetamines Screen Not Detected (Not Detect) U Benzodiazepines Scrn Not Detected (Not Detect) Urine Cocaine Screen Not Detected (Not Detect) U Marijuana (THC) Screen Not Detected (Not Detect) Ethyl Alcohol mg/dL Independent Interpretation I performed an independent interpretation of an: EKG (Normal sinus rhythm heart rate 99, nonspecific T-wave changes, possible old inferior wall [place], no acute ST elevations or depressions), Plain X-Ray (Chest no acute cardiopulmonary disease) and CT Scan (Head: No intracranial bleeding, mild volume loss, periventricular white matter changes, no obvious mass effect) Radiology Impression Discussion of test interpretation with radiology: I have reviewed the radiologist's reading. Radiologist Impression: CT/CT head for stroke IMPRESSION: *? No intracranial hemorrhage, mass or midline shift. *? 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 ? ? This critical result was discussed with Dr. Hagen at 9:08 am on 11/22/2022. It was ascertained that the content and urgency of the report was understood at the time of direct communication. Dictated By: Dhruv Rowley MD Signed By: <Electronically signed by Dhruv Rowley MD in OV> 11/22/22 0914 Independent Historian Clinical information obtained from an independent historian. History obtained from or confirmed by: EMS External Record Review External record reviewed: Outpatient record Prescription Management I considered prescription management with: Antibiotic Chronic Conditions Patient?s care impacted by: Hypertension and Other (Dementia, seizure disorder) Critical Care Time Critical Care Time Critical Care Time: Yes Total Critical Care Time: 45 Attestation: Approximately 45 minutes of critical care time spent on patient an initial evaluation, re-evaluation, contact with fitness and wellness coordinator, consideration of a potentially life-threatening or severe morbid threatening condition, interpretation of medical data, documentation, consultation with other providers. This is all outside of any procedures. Discharge Plan Discharge Clinical Impression: Altered mental status, Encephalopathy Patient Disposition: Admitted As Inpatient Prescriptions: No Action amlodipine 5 mg Tablet 5 mg PO DAILY atorvastatin [Lipitor] 40 mg Tablet 40 mg PO BEDTIME acetaminophen 325 mg Tablet 650 mg PO Q6H PRN (Reason: Pain) oxcarbazepine 300 mg Tablet 300 mg PO BID magnesium hydroxide [Milk of Magnesia] 400 mg/5 mL Suspension 30 ml PO DAILY PRN (Reason: Constipation) bisacodyl 10 mg Suppository 10 mg NH DAILY PRN (Reason: Constipation) Fleet Enema 19-7 gram/118 mL Enema 118 ml NH DAILY PRN (Reason: Constipation) docusate sodium [Colace] 100 mg Capsule 200 mg PO DAILY lisinopril 5 mg Tablet 5 mg PO DAILY metoprolol tartrate 25 mg Tablet 12.5 mg PO BID allopurinol 100 mg tablet 2 tab PO DAILY Eliquis 5 mg tablet 1 tab PO BID multivitamin Tablet 1 tab PO DAILY amlodipine 2.5 mg tablet 2.5 mg PO DAILY levetiracetam 100 mg/mL Solution 500 mg PO BID Calcium 600 + D(3) 600 mg-5 mcg (200 unit) Capsule 1 cap PO DAILY
[2022-11-22 08:53] VITALS: BP 140/61; PULSE 92; RESP 18; TEMP 36.6; O2SAT 92; BMI 22.0
--- NOTE | 2022-11-22 09:00 | ECG_ITS ---
Test Reason : stroke Blood Pressure : / mmHG Vent. Rate : 099 BPM Atrial Rate : 099 BPM P-R Int : 168 ms QRS Dur : 086 ms QT Int : 348 ms P-R-T Axes : 044 011 059 degrees QTc Int : 446 ms Artifact in tracing Normal sinus rhythm Cannot rule out Anterior infarct , age undetermined Abnormal ECG When compared with ECG of 08-JUN-2022 15:38, No significant change was found Referred By: Jefe Hagen Electronically Signed By:VOLODYMYR HA
[2022-11-22 09:39] LABS: MANUAL DIFF FLAG NO
[2022-11-22 09:41] LABS: Basophils Absolute Auto 0.1 X10*3/uL (0.0-0.2); Basophils Percent Auto 0.5 % (0-2); Eosinophils Absolute Auto 0.1 X10*3/uL (0.0-0.4); Eosinophils Percent Auto 0.6 % (0-4); Hematocrit 43.1 % (42.0-52.0); Hemoglobin 14.8 g/dl (14.0-18.0); Imm Gran Abs Auto 0.17 X10*3/uL (0.00-0.03); Imm Gran Pct Auto 1.7 % (0.0-0.4); Lymphocytes Percent Auto 9.6 % (20-40); Mean Corpuscular HGB Conc 34.3 g/dl (31.0-36.0); Mean Corpuscular Hemoglobin 31.8 pg (27.0-33.0); Mean Corpuscular Volume 92.5 fL (80.0-98.0); Mean Platelet Volume 9.2 fL (9.4-12.4); Monocytes Absolute Auto 0.5 X10*3/uL (0.1-1.2); Monocytes Percent Auto 4.6 % (2-11); Neutrophils Absolute Auto 8.4 x10*3/uL (2.0-8.3); Platelet Count 208 X10*3/uL (160-400); Red Blood Count 4.66 X10*6/uL (4.60-5.80); Red Cell Distribution Width 13.4 % (11.0-16.0); White Blood Count 10.1 X10*3/uL (4.8-10.8)
--- NOTE | 2022-11-22 09:49 | PC.NURSE ---
Pt arrived via EMS from [facility] for possible stroke unclear what pt baseline is due to dementia.
[2022-11-22 09:52] LABS: Appearance Urine Clear; Color Urine Yellow; Glucose Urine UA Negative (Negative); Leukocyte Esterase Urine Negative (Negative); Nitrite Urine Negative (Negative); UMIC TRIGGER UACC YES; Urine Blood Negative (Negative); Urine Ketones Negative (Negative); Urine Protein 300 (3+) mg/dL (Neg-Trace)
[2022-11-22 10:01] LABS: Prothrombin Time Whole Bld POC 14.6 sec (11.1-13.5); ~PT, ~INR - Anti Coag Clinic 1.2 (0.9-1.1)
[2022-11-22 10:02] LABS: Troponin-I High Sensitivity 12.6 ng/L (<3.5-35.0)
[2022-11-22 10:02] LABS: Amphetamine Screen Urine Not Detected (Not Detect); Barbiturates, Urine Not Detected (Not Detect); Benzodiazepines Screen Urine Not Detected (Not Detect); Cannabinoid Screen Urine Not Detected (Not Detect); Cocaine Screen Urine Not Detected (Not Detect); Fentanyl, urine Not Detected (Not Detect); Opiate Screen Urine Not Detected (Not Detect); Phencyclidine Screen Urine Not Detected (Not Detect)
[2022-11-22 10:02] LABS: Glucose, Whole Blood 142 mg/dL (60-115)
[2022-11-22 10:08] LABS: Anion Gap 18 (12-20); Blood Urea Nitrogen 29 mg/dL (9-16); Calcium 9.4 mg/dL (8.4-10.2); Carbon Dioxide 25 mmol/L (22-29); Chloride 106 mmol/L (96-108); Creatinine Clr Calc Pharmacy 41.4; Estimated Glomerular Filt Rate 53; Ethanol < 10 mg/dL; Glucose Random 130 mg/dL (60-115); Potassium 3.9 mmol/L (3.3-5.1); Sodium 145 mmol/L (135-145)
[2022-11-22 10:08] LABS: Bacteria Urine None Seen (None Seen); Hyaline Casts Urine 0-2 /LPF (0-2); RBC Urine 0-2 /HPF (0-2); Squamous Epithelial Cell Urine 0-2 /HPF (0-2); WBC Urine 0-5 /HPF (0-5)
[2022-11-22 10:11] LABS: Lactic Acid 3.5 mmol/L (0.5-2.0)
[2022-11-22 10:17] LABS: TSH reflex Free T4 2.23 uIU/mL (0.32-4.0)
[2022-11-22 10:17] LABS: INTERNATIONAL NORM RATIO 1.1 (0.9-1.1); Prothrombin Time 12.9 SEC (10.0-13.1)
--- NOTE | 2022-11-22 10:20 | PHA.MEDREC ---
Pharmacy Consult ? Medication Reconciliation Pharmacy has completed the medication reconciliation. Patient came from [facility] with a medication list. Keysha Ryan, KimberleeD
[2022-11-22 10:27] VITALS: BP 154/77; PULSE 93; RESP 19; O2SAT 92
--- NOTE | 2022-11-22 11:19 | PM.IMHP ---
History of Present Illness Date of Service: 11/22/22 Chief Complaint: AMS Chief Complaint: Fever, Hypoxia 87 year old male with advanced dementia, Hypertension, HLD, h/o Pulmonary embolism from intermediate with DNR/DNi status on MOLST form, history of seizure on keppr. He was brought to the ED to be evaluted for AMS. Patient himself is quite demented and out of it and is not able give any history. History obtained from ED rcords and [facility] ([facility]) records.? He was sent to be evaluated for change in baseline. [facility] records states that patient was found laying on accross bed face down with labored breathing, body flacid BP 220/97. ED reported some facial assymetry that I did not appreciate. 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 ED discussed with Neurology with no further recommendation Review of Systems Review of Systems: Yes Unobtainable due to mental status PMFSH Medical History Bradycardia COPD (chronic obstructive pulmonary disease) Dementia Dysphagia Gout History of pulmonary embolism Hyperlipidemia Hypertension Hyponatremia Kidney disease Metabolic encephalopathy Seizure Social History Household Members: Other Housing: Long-Term Do you presently have visiting nurse or other home services: No Unable to assess alcohol history related to: Unable to respond Patient Tobacco Use Status: Tobacco use Unknown Use of substances other than those prescribed or required for medical reasons: Unknown Currently Displaying Signs/Symptoms of Drug Intoxication Withdrawal: No Advance Directives: Yes Advance Directives on File: Yes Advance Directives Date on File: 12/03/20 Recently lost weight without trying: Unsure How much weight loss: Unsure Nutrition Risks: On aspiration precautions Poor oral hygiene: No service: Yes Current occupational status: retired Meds Allergies Allergy/AdvReac Type Severity Reaction Status Date / Time hydrochlorothiazide Allergy Unknown Verified 12/03/20 09:33 niacin Allergy Unknown Verified 12/03/20 09:33 nifedipine Allergy Unknown Verified 12/03/20 09:33 Active Medications: Current Medications Pharmacy Consult (Consult Rx Perform Med Rec) 1 each MISCELLANE ONCE PRN PRN Reason: Consult order Home Medications Medication Instructions Recorded Confirmed Last Taken Type acetaminophen 325 mg tablet 650 mg PO Q6H PRN Pain 12/03/20 11/22/22 Unknown History amlodipine 5 mg tablet 5 mg PO DAILY 12/03/20 11/22/22 Unknown History atorvastatin 40 mg tablet (Lipitor) 40 mg PO BEDTIME 12/03/20 11/22/22 Unknown History bisacodyl 10 mg rectal suppository 10 mg ND DAILY PRN Constipation 12/03/20 11/22/22 Unknown History docusate sodium 100 mg capsule 200 mg PO DAILY 12/03/20 11/22/22 Unknown History (Colace) lisinopril 5 mg tablet 5 mg PO DAILY 12/03/20 11/22/22 Unknown History magnesium hydroxide 400 mg/5 mL 30 ml PO DAILY PRN Constipation 12/03/20 11/22/22 Unknown History oral suspension (Milk of Magnesia) metoprolol tartrate 25 mg tablet 12.5 mg PO BID 12/03/20 11/22/22 Unknown History oxcarbazepine 300 mg tablet 300 mg PO BID 12/03/20 11/22/22 Unknown History sodium phosphates 19 gram-7 118 ml ND DAILY PRN Constipation 12/03/20 11/22/22 Unknown History gram/118 mL enema (Fleet Enema) allopurinol 100 mg tablet 2 tab PO DAILY 06/01/21 11/22/22 Unknown History apixaban 5 mg tablet (Eliquis) 1 tab PO BID 06/01/21 11/22/22 Unknown History amlodipine 2.5 mg tablet 2.5 mg PO DAILY 11/22/22 11/22/22 Unknown History calcium carbonate 600 mg-vitamin 1 cap PO DAILY 11/22/22 11/22/22 Unknown History D3 5 mcg (200 unit) capsule (Calcium 600 + D(3)) levetiracetam 100 mg/mL oral 500 mg PO BID 11/22/22 11/22/22 Unknown History solution multivitamin 1 tab PO DAILY 11/22/22 11/22/22 Unknown History Physical Exam Vital Signs and Narrative: Vital Signs: Last Vital Signs Temp 98 F 11/22/22 08:53 Pulse 93 11/22/22 10:27 Resp 19 11/22/22 10:27 BP 154/77 H 11/22/22 10:27 Pulse Ox 92 11/22/22 10:27 O2 Del Method Room Air 11/22/22 10:27 BMI result Body Mass Index 22.0 Const: Other: Constitutional: Alert, confused, doesn't follow direction. Mental Status: unable to assess Eyes: Pupils are equal, round and reactive to light. Ear, Nose and Throat: moist Respiratory: Clear to auscultation. No wheezing, rales or rhonchi. Cardiovascular: S1 S2 regular. No murmurs, rubs or gallops. Gastrointestinal: Abdomen soft, non-tender, non-distended. Normal bowel sounds.? Neurologic: difficult to perform neuro exam as not able to follow commands at all, he move all extremities spontaneously and doesn't show any deficits, I did not appreciated any facial assymetry Skin: No rashes or lesions.? Musculoskeletal: No cyanosis or clubbing. Psychiatric:flat Results Labs 11/22/22 09:34 11/22/22 09:33 Labs: Laboratory Results - last 24 hr 11/22/22 11/22/22 11/22/22 09:02 09:04 09:33 MCV MCH MCHC RDW Plt Count MPV Immature Gran % (Auto) Neut % (Auto) Lymph % (Auto) [place] % (Auto) Eos % (Auto) Baso % (Auto) Lymph # (Auto) [place] # (Auto) Eos # (Auto) Baso # (Auto) Abs Immat Gran (auto) Absolute Neuts (auto) Absolute Nucleated RBC Nucleated RBC % (auto) PT Whole Blood PT 14.6 H INR Whole Blood INR 1.2 H APTT Anion Gap 18 Estim Creat Clear Calc 41.4 Estimated GFR 53 POC Glucose 142 H Random Glucose 130 H Lactic Acid Calcium 9.4 Troponin I High Sens TSH 2.23 Urine Color Urine Appearance Urine pH Ur Specific [place] Urine Protein Urine Glucose (UA) Urine Ketones Urine Blood Urine Nitrite Ur Leukocyte Esterase Urine RBC Urine WBC Ur Squamous Epith Cells Urine Bacteria Hyaline Casts Urine Opiates Screen Urine Fentanyl Screen Ur Barbiturates Screen Ur Phencyclidine Scrn Ur Amphetamines Screen U Benzodiazepines Scrn Urine Cocaine Screen U Marijuana (THC) Screen Ethyl Alcohol < 10 11/22/22 11/22/22 11/22/22 09:33 09:33 09:34 MCV 92.5 MCH 31.8 MCHC 34.3 RDW 13.4 Plt Count 208 MPV 9.2 L Immature Gran % (Auto) 1.7 H Neut % (Auto) 83.0 H Lymph % (Auto) 9.6 L [place] % (Auto) 4.6 Eos % (Auto) 0.6 Baso % (Auto) 0.5 Lymph # (Auto) 1.0 L [place] # (Auto) 0.5 Eos # (Auto) 0.1 Baso # (Auto) 0.1 Abs Immat Gran (auto) 0.17 H Absolute Neuts (auto) 8.4 H Absolute Nucleated RBC 0.000 Nucleated RBC % (auto) 0.0 PT Whole Blood PT INR Whole Blood INR APTT Anion Gap Estim Creat Clear Calc Estimated GFR POC Glucose Random Glucose Lactic Acid 3.5 H* Calcium Troponin I High Sens 12.6 D TSH Urine Color Urine Appearance Urine pH Ur Specific [place] Urine Protein Urine Glucose (UA) Urine Ketones Urine Blood Urine Nitrite Ur Leukocyte Esterase Urine RBC Urine WBC Ur Squamous Epith Cells Urine Bacteria Hyaline Casts Urine Opiates Screen Urine Fentanyl Screen Ur Barbiturates Screen Ur Phencyclidine Scrn Ur Amphetamines Screen U Benzodiazepines Scrn Urine Cocaine Screen U Marijuana (THC) Screen Ethyl Alcohol 11/22/22 11/22/22 11/22/22 09:34 09:38 09:39 MCV MCH MCHC RDW Plt Count MPV Immature Gran % (Auto) Neut % (Auto) Lymph % (Auto) [place] % (Auto) Eos % (Auto) Baso % (Auto) Lymph # (Auto) [place] # (Auto) Eos # (Auto) Baso # (Auto) Abs Immat Gran (auto) Absolute Neuts (auto) Absolute Nucleated RBC Nucleated RBC % (auto) PT 12.9 Whole Blood PT INR 1.1 Whole Blood INR APTT 23.0 L Anion Gap Estim Creat Clear Calc Estimated GFR POC Glucose Random Glucose Lactic Acid Calcium Troponin I High Sens TSH Urine Color Yellow Urine Appearance Clear Urine pH 7.0 Ur Specific [place] 1.020 Urine Protein 300 (3+) H Urine Glucose (UA) Negative Urine Ketones Negative Urine Blood Negative Urine Nitrite Negative Ur Leukocyte Esterase Negative Urine RBC 0-2 Urine WBC 0-5 Ur Squamous Epith Cells 0-2 Urine Bacteria None Seen Hyaline Casts 0-2 Urine Opiates Screen Not Detected Urine Fentanyl Screen Not Detected Ur Barbiturates Screen Not Detected Ur Phencyclidine Scrn Not Detected Ur Amphetamines Screen Not Detected U Benzodiazepines Scrn Not Detected Urine Cocaine Screen Not Detected U Marijuana (THC) Screen Not Detected Ethyl Alcohol Imaging Radiologist's Impressions: Impressions Head CT 11/22/22 08:59 IMPRESSION: * No intracranial hemorrhage, mass or midline shift. 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 This critical result was discussed with Dr. Hagen at 9:08 am on 11/22/2022. It was ascertained that the content and urgency of the report was understood at the time of direct communication. Chest X-Ray 11/22/22 09:49 IMPRESSION: No acute abnormality. Assessment and Plan (1) Altered mental status: Status: Acute (2) Encephalopathy: Status: Acute Plan ?? 87 year male with advanced dementia, h/o of PE on Eliquis, history of seizure presenting withAMS, and possible stroke vs seizure evnts 1/ AMS, CT suggest stoke, but seizure not ruled out. -Neuro check to stroke protol -antiplatelet - Statin -Speech eval -Neuro eval if not improving 2/Dementia with baseline agitation, continue usual meds 3/HTN--continue outside meds per med rec (norvasc, lisinopril, metoprolol) 4/ history of PE--continue Eliquis 5/history of Seizure d/o continue Keppra, trileptal 6/ HLD--statin 7/Acute lactic acidosis, not due to sepsis, ? seizure related DVT prophylaxis--Rein[place], CODE: DNR/DNI, Time Spent With Patient Time: Total time managing care of this patient today ____ minutes. Quality Stroke Does the patient have a stroke diagnosis?: Yes Reason for No Anti-thrombotic by Day Two: N/A - Med Ordered VTE Prior VTE?: Yes VTE Risk Level:: Medical - moderate - high VTE Device Contraindication: Treatment Not Indicated VTE Drug Contraindication: N/A - Med Ordered
[2022-11-22 11:37] LABS: Reflex Lactate? Lactic Acid Added
[2022-11-22 12:18] LABS: ~Lactic Acid-LAB USE ONLY 1.3 mmol/L (0.5-2.0)
[2022-11-22 13:08] VITALS: BP 209/106; PULSE 103; RESP 26; TEMP 36.4; O2SAT 93
--- NOTE | 2022-11-22 13:14 | MHC.SL.SWA ---
Speech Pathologist Impression: Risk of aspiration, oropharyngeal dysphagia Risk of Aspiration Due to: Neurological Condition Reduced Cognition Dysphasia Diet Status: NPO d/t aspiration risk Liquid Consistency and Strategies for Safe Swallow: Liquid Intake Recommendation: NPO Solid Food Consistency: Dietary Recommendations: NPO Additional Modifications to Solid Foods: Pt seen for bedside dysphagia evaluation in the ED this afternoon. Pt was awake, but confused and reaching out/grabbing. Pt requires total 1:1 assistance feeding at baseline. Pt presented with significantly slowed and delayed oral phase, characterized by maladaptive munching behavior, oral holding, and moderate residuals. Pt's swallow was delayed and at times absent initiation. Pt produced intermittent throat clearing. Consistently with each swallow, LEAD RECOVERER observed dip in 02 sat from 90 to 75-76, back up to 88-90, suspicious for microaspiration. Notified nursing on floor. Recommend NPO status d/t signs/symptoms of aspiration. Recommend frequent oral care daily. Ensure head of bed is elevated at least 30 degrees. LEAD RECOVERER will continue to follow to monitor and re-assess swallow function. LEAD RECOVERER is available for call-in over the weekend through [employer] if indicated- LEAD RECOVERER notified MD, RN, RD via [place] Message. Oral Medication Intake: NPO Please contact the pharmacy regarding appropriate crushable or liquid drug formulations that are available whenever modified delivery is recommended. Supervision While Eating and Drinking for Safe Swallow: PO with LEAD RECOVERER Swallowing Recommended Treatments: Compens. Strategy Educat. Recommendation for Speech: Inpatient Speech Therapy Speech Therapy through Rehab Facility Comment: Nursing staff at [facility] report that at baseline prior to this hospitalization pt was on a pureed diet w/ nectar thick liquids. Replanting Machine Crewman Clinican/Clinical Fellow: No Supervisory Statement: I have reviewed and agree with the student/clinical fellow's documentation: N/A Speech Language Pathologist: Alexandria Mohamud M.A., [facility]-LEAD RECOVERER
--- NOTE | 2022-11-22 17:11 | PC.NURSE ---
Pt medication not given due to difficulty swallowing.
[2022-11-22] MEDS: Dextrose 5 % 1,000 ML 100 ML IVCONT (17:19)
--- NOTE | 2022-11-22 17:46 | PC.NURSE ---
Pt had pulled out several IV, needed multiple restarts. current IV in place to right forearm.
--- NOTE | 2022-11-22 17:49 | PC.NURSE ---
Transport contact for admission
[2022-11-22 18:31] VITALS: BP 194/97; PULSE 78; RESP 16; TEMP 37.2; O2SAT 95
[2022-11-22] MEDS: amLODIPine Besylate 5 MG TABLET PO (18:37)
[2022-11-22] MEDS: amLODIPine Besylate 2.5 MG TABLET PO (18:37)
[2022-11-22 19:38] VITALS: BP 163/89; PULSE 89; RESP 18; TEMP 36.8; O2SAT 97
[2022-11-22] MEDS: Metoprolol Tartrate 12.5 MG HALFTAB PO (20:19)
[2022-11-22] MEDS: levETIRAcetam Oral Soln 500 MG/5 ML PO (20:19)
[2022-11-22] MEDS: Apixaban 5 MG TABLET PO (20:20)
[2022-11-22] MEDS: Atorvastatin Calcium 40 MG TABLET PO (20:20)
[2022-11-22] MEDS: OXcarbazepine 300 MG TABLET PO (20:20)
--- NOTE | 2022-11-22 22:58 | PC.NURSE ---
patient awake , followed command please open your mouth , able to swallow crushed medication with apple sauce , no s/s of aspiration noted , no multiple swallowing , no cough , no wet voice
[2022-11-23] MEDS: Dextrose 5 % 1,000 ML 100 ML IVCONT ×2 (03:51→14:25)
[2022-11-23 07:53] VITALS: BP 192/89; PULSE 74; RESP 20; TEMP 36.3; O2SAT 92
--- NOTE | 2022-11-23 10:30 | MHC.CM.PN ---
Lives at [facility] in dementia unit for LTC; has been there for 2 years now. All equipment and services provided by SNF. Laya () has moved to her son's house in [place] in order to be closer to Ghanshyam (Pt). Pt and still own home in [place]; their daughter has moved in to this home and is caring for it. Laya indicates Pt has no idea who she is, and has not recognized her for some time now. She states he also has not been ambulatory and does not know when this happened; last she remembered, he was going on 4 mile walks, bike riding, basically until he moved in to the SNF, then he stopped walking. She has indicated their entire family have organized their lives around Pt's location/living circumstances and his needs, so they are all in agreement for his return to [facility] dementia unit for LTC. CM to follow.
--- NOTE | 2022-11-23 10:35 | MHC.CM.PN ---
Laya has requested all correspondence for Pt please be sent to: Javier and/or Laya Jackson [address] [place] [address]. KATHY Eddy. [phone]. Will forward IMM to this address per her request. CM to follow.
[2022-11-23 11:39] VITALS: BP 198/93; PULSE 63; RESP 19; TEMP 36.6; O2SAT 96
--- NOTE | 2022-11-23 11:55 | MHC.CM.PN ---
[facility] responded in [employer] indicating Pt is a private pay BH and that he is welcome to return. D/C plan in place; pending D/C readiness. CM to follow.
[2022-11-23 15:22] VITALS: BP 145/93; PULSE 77; RESP 18; TEMP 36.9; O2SAT 95
[2022-11-23 19:37] VITALS: BP 182/92; PULSE 82; RESP 17; TEMP 37.3; O2SAT 94
[2022-11-23] MEDS: Metoprolol Tartrate 12.5 MG HALFTAB PO (20:09)
[2022-11-23] MEDS: levETIRAcetam Oral Soln 500 MG/5 ML PO (20:09)
[2022-11-23] MEDS: 0.9 % Sodium Chloride Flush 3 ML SYRINGE IVFLUSH (20:09)
[2022-11-23] MEDS: Atorvastatin Calcium 40 MG TABLET PO (20:09)
[2022-11-23] MEDS: OXcarbazepine 300 MG TABLET PO (20:09)
[2022-11-23] MEDS: Apixaban 5 MG TABLET PO (20:09)
[2022-11-23 23:54] VITALS: BP 144/67; PULSE 73; RESP 16; TEMP 36.9; O2SAT 94
[2022-11-24] VITALS (7 sets, daily range): BP systolic 114–193; BP diastolic 63–108; PULSE 72–114; RESP 16–20; TEMP 36.2–37.7; O2SAT 92–95
[2022-11-24] MEDS: Dextrose 5 % 1,000 ML 100 ML IVCONT (02:37)
--- NOTE | 2022-11-24 10:02 | HO.PM.IMPN ---
Subjective Subjective Date of Service: 11/24/22 Interval History: f/u on altered mental status, interval history he remains very confused, not eating drinking and speech is very gurglye Physical Exam Vital Signs: Vital Signs: Last Vital Signs Temp 98 F 11/24/22 07:25 Pulse 72 11/24/22 07:25 Resp 20 11/24/22 07:25 BP 187/90 H 11/24/22 07:25 Pulse Ox 92 11/24/22 07:25 O2 Del Method Room Air 11/24/22 07:25 BMI result Body Mass Index 22.0 Const: Other: alert, confused Resp: CTA bilateral CVS: S1,S2,RRR GI: +BS, NT, no distention Skin: No rash Neuro: motor grossly intact, no localized deficit Psych: appropriate affect Objective Data Active Medications Allopurinol (Allopurinol 100 Mg Tablet) 200 mg PO DAILY [facility] Last Admin: 11/24/22 07:48 Dose: Not Given Documented By: CHOLO Non-Admin Reason: NPO Amlodipine Besylate (Amlodipine Besylate 2.5 Mg Tablet) 2.5 mg PO DAILY [facility]; Protocol Last Admin: 11/24/22 07:50 Dose: Not Given Documented By: CHOLO Non-Admin Reason: No Access Amlodipine Besylate (Amlodipine Besylate 5 Mg Tablet) 5 mg PO DAILY [facility]; Protocol Last Admin: 11/24/22 08:00 Dose: Not Given Documented By: CHOLO Non-Admin Reason: NPO Apixaban (Apixaban 5 Mg Tablet) 5 mg PO BID [facility] Last Admin: 11/24/22 08:00 Dose: Not Given Documented By: CHOLO Non-Admin Reason: NPO Comments: Strict NPO pending swallow nikolai. aware. Atorvastatin Calcium (Atorvastatin Calcium 40 Mg Tablet) 40 mg PO BEDTIME [facility] Last Admin: 11/23/22 20:09 Dose: 40 mg Documented By: LUISANA Bisacodyl (Bisacodyl 10 Mg Supp.Rect) 10 mg NV DAILY PRN PRN Reason: Constipation Calcium Carbonate/Cholecalciferol (Calcium + Vitamin D 250 Mg Tablet) 500 mg PO DAILY [facility] Last Admin: 11/24/22 08:01 Dose: Not Given Documented By: CHOLO Non-Admin Reason: NPO Docusate Sodium (Docusate Sodium 100 Mg Capsule) 200 mg PO DAILY [facility] Last Admin: 11/24/22 08:16 Dose: Not Given Documented By: CHOLO Non-Admin Reason: NPO Dextrose (D5w) 1,000 mls @ 100 mls/hr IVCONT .Q10H [facility] Last Admin: 11/24/22 02:37 Dose: 100 mls/hr Documented By: LUISANA Levetiracetam (Levetiracetam Oral Soln 500 Mg/5 Ml) 500 mg PO BID [facility] Last Admin: 11/24/22 08:16 Dose: Not Given Documented By: CHOLO Non-Admin Reason: NPO Lisinopril (Lisinopril 5 Mg Tablet) 5 mg PO DAILY [facility]; Protocol Last Admin: 11/24/22 08:16 Dose: Not Given Documented By: CHOLO Non-Admin Reason: NPO Magnesium Hydroxide (Milk Of Magnesia 30 Ml Oral.Susp) 30 ml PO DAILY PRN PRN Reason: Constipation Metoprolol Tartrate (Metoprolol Tartrate 12.5 Mg Halftab) 12.5 mg PO BID [facility]; Protocol Last Admin: 11/24/22 08:16 Dose: Not Given Documented By: CHOLO Non-Admin Reason: NPO Multivitamins/Vitamin C (Multivitamin Tablet) 1 tab PO DAILY [facility] Last Admin: 11/24/22 08:16 Dose: Not Given Documented By: CHOLO Non-Admin Reason: NPO Ondansetron HCl (Ondansetron Hcl 4 Mg/2 Ml Vial) 4 mg IVPUSH Q8H PRN PRN Reason: Nausea and Vomiting Oxcarbazepine (Oxcarbazepine 300 Mg Tablet) 300 mg PO BID [facility] Last Admin: 11/24/22 08:16 Dose: Not Given Documented By: CHOLO Non-Admin Reason: NPO Pharmacy Consult (Consult Rx Perform Med Rec) 1 each MISCELLANE ONCE PRN PRN Reason: Consult order Sodium Biphosphate/Sodium Phosphate (Sodium Phosphate,Cataño-Dibasic 133 Ml Enema) 118 ml NV DAILY PRN PRN Reason: Constipation Sodium Chloride (0.9 % Sodium Chloride Flush 3 Ml Syringe) 3 ml IVFLUSH QSHIFT [facility] Last Admin: 11/24/22 08:00 Dose: Not Given Documented By: CHOLO Non-Admin Reason: IV Running Labs 11/22/22 09:34 11/22/22 09:33 Microbiology Microbiology Results: Microbiology 11/22/22 09:32 Blood Culture - Preliminary Blood - Venous No growth after 24 hours. 11/22/22 09:33 Blood Culture - Preliminary Blood - Venous Prelim: GPC Gram Stain only Assessment and Plan (1) Altered mental status: Status: Acute (2) Encephalopathy: Status: Acute (3) Pneumonia: Status: Acute Plan 87 year male with advanced dementia, h/o of PE on Eliquis, history of seizure? presenting with AMS, cause unclear etiology but sezure vs possible another stroke. He remains largely confused, desoriented doesn't follow any command, speech is gurgly, family states that he has been progresively worsening. 1/ AMS, CT suggest possible possible acute or subacute stroke, i don't think MRI will offer any additional info and patient is unlikely to tolerate MRI. Waiting on Neuro eval. He is NPO at present and I will discuss further escalation of care with family. 2/Dysphagia-- that seems more prominent. He failied swallow eval the other day. Speech will be available again tomorrow, I will discuss alternate feeding ie NGT with family, for now continue IV flud 2/Dementia? with baseline agitation, med on hold as above 3/HTN--meds on hold for now 4/ history of PE years ago, heparin for DVT prophyalaxis, hold eliquis and will discuss further with family 5/history of Seizure, change Keppra to IV 6/ HLD--statin when taking zPO 7/Acute lactic acidosis, not due to sepsis, ? seizure related DVT prophylaxis--heparin CODE: DNR/DNI, MOLST on record. Goals of care to be further discuss with family Time Spent With Patient Time: Total time managing care of this patient today ____ minutes. Quality Stroke Does the patient have a stroke diagnosis?: Yes Reason for No Anti-thrombotic by Day Two: N/A - Med Ordered VTE Prior VTE?: Yes VTE Risk Level:: Medical - moderate - high VTE Device Contraindication: Treatment Not Indicated VTE Drug Contraindication: N/A - Med Ordered
[2022-11-24] MEDS: levETIRAcetam in NaCl (iso-os) 500 MG/100 ML PIGGYBACK 400 MG IV ×2 (14:41→21:04)
[2022-11-24] MEDS: 0.9 % Sodium Chloride Flush 3 ML SYRINGE IVFLUSH ×2 (14:42→21:11)
[2022-11-25] VITALS (7 sets, daily range): BP systolic 160–170; BP diastolic 65–85; PULSE 77–102; RESP 18–20; TEMP 36.3–37.1; O2SAT 92–96
--- NOTE | 2022-11-25 | EEG_ITS ---
This is a 16-channel EEG with an EKG lead. The patient is reported awake and drowsy during the tracing. Background EEG rhythm is 7 to 8 hertz diffuse with no obvious asymmetry or paroxysmal tendency. Some lead and muscle artifacts are noted. Photic stimulation or hyperventilation are not performed. Cardiac lead does not reveal any significant abnormality. No sharp wave spikes or paroxysmal tendency noted. IMPRESSION: Generalized slowing with no evidence of seizure disorder. MD AAMIR Burns/ALISON / [id number]
--- NOTE | 2022-11-25 08:53 | PM.NEUROCN ---
History of Present Illness Data of Consult Service Date: 11/25/22 Primary Care Provider: AMARILIS MATHEW [facility] Reason for consult: Encephalopathy 87 years old man with underlying history of dementia brought to hospital with change in mental status. He was unable to provide any meaningful history. There was no history of any recent fall or convulsion. Review of Systems Review of Systems: Could not be done with [facility] Past Medical History Medical History Bradycardia COPD (chronic obstructive pulmonary disease) Dementia Dysphagia Gout History of pulmonary embolism Hyperlipidemia Hypertension Hyponatremia Kidney disease Metabolic encephalopathy Seizure Social History Social History Household Members: Other Housing: Alf Do you presently have visiting nurse or other home services: No Unable to assess alcohol history related to: Unable to respond Patient Tobacco Use Status: Tobacco use Unknown Use of substances other than those prescribed or required for medical reasons: Unknown Currently Displaying Signs/Symptoms of Drug Intoxication Withdrawal: No Advance Directives: Yes Advance Directives on File: Yes Advance Directives Date on File: 12/03/20 Recently lost weight without trying: Unsure How much weight loss: Unsure Nutrition Risks: On aspiration precautions Poor oral hygiene: No service: Yes Current occupational status: retired Meds Allergies Allergy/AdvReac Type Severity Reaction Status Date / Time hydrochlorothiazide Allergy Unknown Verified 12/03/20 09:33 niacin Allergy Unknown Verified 12/03/20 09:33 nifedipine Allergy Unknown Verified 12/03/20 09:33 Active Medications: Current Medications Allopurinol (Allopurinol 100 Mg Tablet) 200 mg PO DAILY [facility] Last Admin: 11/24/22 07:48 Dose: Not Given Amlodipine Besylate (Amlodipine Besylate 2.5 Mg Tablet) 2.5 mg PO DAILY [facility]; Protocol Last Admin: 11/24/22 07:50 Dose: Not Given Amlodipine Besylate (Amlodipine Besylate 5 Mg Tablet) 5 mg PO DAILY [facility]; Protocol Last Admin: 11/24/22 08:00 Dose: Not Given Apixaban (Apixaban 5 Mg Tablet) 5 mg PO BID [facility] Last Admin: 11/24/22 21:13 Dose: Not Given Atorvastatin Calcium (Atorvastatin Calcium 40 Mg Tablet) 40 mg PO BEDTIME [facility] Last Admin: 11/24/22 21:13 Dose: Not Given Bisacodyl (Bisacodyl 10 Mg Supp.Rect) 10 mg ND DAILY PRN PRN Reason: Constipation Calcium Carbonate/Cholecalciferol (Calcium + Vitamin D 250 Mg Tablet) 500 mg PO DAILY [facility] Last Admin: 11/24/22 08:01 Dose: Not Given Docusate Sodium (Docusate Sodium 100 Mg Capsule) 200 mg PO DAILY [facility] Last Admin: 11/24/22 08:16 Dose: Not Given Hydralazine HCl (Hydralazine Hcl 20 Mg/Ml Vial) 5 mg IVPUSH Q6H PRN; Protocol PRN Reason: Sbp > 180 Levetiracetam (Keppra) 500 mg in 100 mls @ 400 mls/hr IV BID [facility] Last Infusion: 11/24/22 21:36 Dose: Infused Lisinopril (Lisinopril 5 Mg Tablet) 5 mg PO DAILY [facility]; Protocol Last Admin: 11/24/22 08:16 Dose: Not Given Magnesium Hydroxide (Milk Of Magnesia 30 Ml Oral.Susp) 30 ml PO DAILY PRN PRN Reason: Constipation Metoprolol Tartrate (Metoprolol Tartrate 12.5 Mg Halftab) 12.5 mg PO BID [facility]; Protocol Last Admin: 11/24/22 21:13 Dose: Not Given Multivitamins/Vitamin C (Multivitamin Tablet) 1 tab PO DAILY [facility] Last Admin: 11/24/22 08:16 Dose: Not Given Ondansetron HCl (Ondansetron Hcl 4 Mg/2 Ml Vial) 4 mg IVPUSH Q8H PRN PRN Reason: Nausea and Vomiting Oxcarbazepine (Oxcarbazepine 300 Mg Tablet) 300 mg PO BID [facility] Last Admin: 11/24/22 21:13 Dose: Not Given Pharmacy Consult (Consult Rx Perform Med Rec) 1 each MISCELLANE ONCE PRN PRN Reason: Consult order Sodium Biphosphate/Sodium Phosphate (Sodium Phosphate,[place]-Dibasic 133 Ml Enema) 118 ml ND DAILY PRN PRN Reason: Constipation Sodium Chloride (0.9 % Sodium Chloride Flush 3 Ml Syringe) 3 ml IVFLUSH QSHIFT [facility] Last Admin: 11/24/22 21:11 Dose: 3 ml Home Medications Medication Instructions Recorded Confirmed Last Taken Type acetaminophen 325 mg tablet 650 mg PO Q6H PRN Pain 12/03/20 11/22/22 Unknown History amlodipine 5 mg tablet 5 mg PO DAILY 12/03/20 11/22/22 Unknown History atorvastatin 40 mg tablet (Lipitor) 40 mg PO BEDTIME 12/03/20 11/22/22 Unknown History bisacodyl 10 mg rectal suppository 10 mg ND DAILY PRN Constipation 12/03/20 11/22/22 Unknown History docusate sodium 100 mg capsule 200 mg PO DAILY 12/03/20 11/22/22 Unknown History (Colace) lisinopril 5 mg tablet 5 mg PO DAILY 12/03/20 11/22/22 Unknown History magnesium hydroxide 400 mg/5 mL 30 ml PO DAILY PRN Constipation 12/03/20 11/22/22 Unknown History oral suspension (Milk of Magnesia) metoprolol tartrate 25 mg tablet 12.5 mg PO BID 12/03/20 11/22/22 Unknown History oxcarbazepine 300 mg tablet 300 mg PO BID 12/03/20 11/22/22 Unknown History sodium phosphates 19 gram-7 118 ml ND DAILY PRN Constipation 12/03/20 11/22/22 Unknown History gram/118 mL enema (Fleet Enema) allopurinol 100 mg tablet 2 tab PO DAILY 06/01/21 11/22/22 Unknown History apixaban 5 mg tablet (Eliquis) 1 tab PO BID 06/01/21 11/22/22 Unknown History amlodipine 2.5 mg tablet 2.5 mg PO DAILY 11/22/22 11/22/22 Unknown History calcium carbonate 600 mg-vitamin 1 cap PO DAILY 11/22/22 11/22/22 Unknown History D3 5 mcg (200 unit) capsule (Calcium 600 + D(3)) levetiracetam 100 mg/mL oral 500 mg PO BID 11/22/22 11/22/22 Unknown History solution multivitamin 1 tab PO DAILY 11/22/22 11/22/22 Unknown History Physical Exam Vital Signs: Vital Signs: Last Vital Signs Temp 98.4 F 11/25/22 08:00 Pulse 78 11/25/22 08:00 Resp 20 11/25/22 08:00 BP 165/85 H 11/25/22 08:00 Pulse Ox 95 11/25/22 08:00 O2 Del Method Room Air 11/25/22 08:00 BMI result Body Mass Index 22.0 Neuro: Other: He is drowsy looking to the right side with right gaze deviation. His right hand is shaking in a synchronous fashion. With repeated requests, he did not answer questions but ultimately told me his 1st name. He was not following commands. Posture was flexed and exam was limited. Results Labs 11/22/22 09:34 11/22/22 09:33 Labs: Head CT revealed moderate to severe diffuse cerebral atrophy and moderate to severe chronic microvascular ischemic changes. Microbiology Microbiology Results: Microbiology 11/22/22 09:32 Blood - Venous Blood Culture - Preliminary No growth after 48 hours. 11/22/22 09:33 Blood - Venous Blood Culture - Final Coag negative Staphylococcus Assessment and Plan (1) Encephalopathy: Status: Acute 87 years old man with severe multifactorial, Alzheimer +vascular, dementia, and encephalopathy. There is fair possibility of partial status epilepticus. I would recommend an electroencephalogram while continuing present dose of antiepileptic. Time Spent With Patient Time: Total time managing care of this patient today ____ minutes. Procedures Date of Service Date of Service: 11/25/22
--- NOTE | 2022-11-25 10:28 | MHC.CM.PN ---
EMR REVIEWED, PT REMAINS NPO PENDING SPEECH CONSULT, PER HOSPITALIST PT'S FAMILY WOULD LIKE HOSPICE/PALLIATIVE CARE IF PT FAILS SPEECH, DBV UPDATED, CM WILL CONT TO FOLLOW FOR SPEECH AND D/C NEEDS.
[2022-11-25] MEDS: Calcium + Vitamin D 250 MG TABLET 500 MG PO (10:44)
[2022-11-25] MEDS: amLODIPine Besylate 5 MG TABLET PO (10:44)
[2022-11-25] MEDS: Docusate Sodium 100 MG CAPSULE 200 MG PO (10:44)
[2022-11-25] MEDS: allopurinoL 100 MG TABLET 200 MG PO (10:45)
[2022-11-25] MEDS: Metoprolol Tartrate 12.5 MG HALFTAB PO ×2 (10:45→21:01)
[2022-11-25] MEDS: amLODIPine Besylate 2.5 MG TABLET PO (10:45)
[2022-11-25] MEDS: lisinopriL 5 MG TABLET PO (10:45)
[2022-11-25] MEDS: 0.9 % Sodium Chloride Flush 3 ML SYRINGE IVFLUSH ×3 (10:46→21:01)
[2022-11-25] MEDS: levETIRAcetam in NaCl (iso-os) 500 MG/100 ML PIGGYBACK 400 MG IV ×2 (10:46→21:01)
[2022-11-25] MEDS: Apixaban 5 MG TABLET PO ×2 (10:47→21:01)
[2022-11-25] MEDS: OXcarbazepine 300 MG TABLET PO ×2 (15:31→21:01)
--- NOTE | 2022-11-25 15:35 | MHC.SL.SWA ---
Speech Pathologist Impression: Risk of aspiration, oropharyngeal dysphagia Risk of Aspiration Due to: Neurological Condition Reduced Cognition Dysphasia Diet Status:UPGRADE from NPO, start on NDD1/HTL Liquid Consistency and Strategies for Safe Swallow: Liquid Intake Recommendation: Honey Thick Liquid Intake Strategies: Small Sips No Straws Solid Food Consistency: Dietary Recommendations: Pureed (NDD1) Additional Modifications to Solid Foods: Recommend UPGRADE from NPO, START on PUREED (NDD1) diet and HONEY THICK liquids via teaspoon or controlled cup (NO STRAWS), pills CRUSHED in PUREE. Pt requires total 1:1 assistance feeding and strict aspiration precautions. Minimize distractions during meal time. Hold tray if pt is lethargic or not attending to meal. Notified MD, RN, RD of recommendations via [place] Message. Recommendations also written on whiteboard in pt's room. Oral Medication Intake: Crushed with Puree Please contact the pharmacy regarding appropriate crushable or liquid drug formulations that are available whenever modified delivery is recommended. Compensatory Strategies and Precautions to be Taken for Safe Swallow: Sitting Upright (90 deg) No Straw Liquids from Cup Liquids from Spoon Small Bites and Sips Rate of Ingestion Change Oral Check Supervision While Eating and Drinking for Safe Swallow: Total Assistance (1:1) Swallowing Recommended Treatments: Compens. Strategy Educat. Recommendation for Speech: Inpatient Speech Therapy Speech Therapy through Rehab Facility Manager Resort Clinican/Clinical Fellow: No Supervisory Statement: I have reviewed and agree with the student/clinical fellow's documentation: N/A Speech Language Pathologist: Alexandria Mohamud M.A., CCC-EXTENSION COURSE COUNSELOR
--- NOTE | 2022-11-25 16:26 | P.PNIM_ITS ---
Subjective Subjective Date of Service: 11/26/22 Interval History: unable to provide meaningful history due to underlying dementia, patient [facility] due to change in acute mental status was found laying across bed face down with labored breathing, no acute issues overnight noted to have no seizure-like activity patient does not follow commands. Review of Systems unable to obtain due to dementia. Physical Exam Vital Signs: Vital Signs: Last Vital Signs Temp 98.8 F 11/25/22 14:59 Pulse 82 11/25/22 14:59 Resp 18 11/25/22 14:59 BP 160/78 H 11/25/22 14:59 Pulse Ox 92 11/25/22 14:59 O2 Del Method Room Air 11/25/22 14:59 BMI result Body Mass Index 22.0 Const: Other: General awake,, resting comfortably in no acute distress. EYES unable to track fingers, mostly right gaze randomly looks at left, unable to check for vision Neck no JVD. CVS regular rate rhythm, Respiratory lungs clear to auscultation, no respiratory distress, no wheeze, no rhonchi. Gastrointestinal abdomen soft, nontender, bowel sounds audible Extremities no edema. Neuro unable to do neuro examination since patient not following commands, no facial asymmetry, Moving all 4 extremities. Skin no rash psych poor insight Objective Data Active Medications Allopurinol (Allopurinol 100 Mg Tablet) 200 mg PO DAILY [facility] Last Admin: 11/25/22 10:45 Dose: 200 mg Documented By: HENRIK Amlodipine Besylate (Amlodipine Besylate 2.5 Mg Tablet) 2.5 mg PO DAILY [facility]; Protocol Last Admin: 11/25/22 10:45 Dose: 2.5 mg Documented By: HENRIK Amlodipine Besylate (Amlodipine Besylate 5 Mg Tablet) 5 mg PO DAILY [facility]; Protocol Last Admin: 11/25/22 10:44 Dose: 5 mg Documented By: HENRIK Apixaban (Apixaban 5 Mg Tablet) 5 mg PO BID [facility] Last Admin: 11/25/22 10:47 Dose: 5 mg Documented By: HENRIK Atorvastatin Calcium (Atorvastatin Calcium 40 Mg Tablet) 40 mg PO BEDTIME [facility] Last Admin: 11/24/22 21:13 Dose: Not Given Documented By: LING Non-Admin Reason: NPO Bisacodyl (Bisacodyl 10 Mg Supp.Rect) 10 mg FL DAILY PRN PRN Reason: Constipation Calcium Carbonate/Cholecalciferol (Calcium + Vitamin D 250 Mg Tablet) 500 mg PO DAILY [facility] Last Admin: 11/25/22 10:44 Dose: 500 mg Documented By: HENRIK Docusate Sodium (Docusate Sodium 100 Mg Capsule) 200 mg PO DAILY [facility] Last Admin: 11/25/22 10:44 Dose: 200 mg Documented By: HENRIK Hydralazine HCl (Hydralazine Hcl 20 Mg/Ml Vial) 5 mg IVPUSH Q6H PRN; Protocol PRN Reason: Sbp > 180 Levetiracetam (Keppra) 500 mg in 100 mls @ 400 mls/hr IV BID [facility] Last Infusion: 11/25/22 15:31 Dose: 0 mls/hr Documented By: HENRIK Lisinopril (Lisinopril 5 Mg Tablet) 5 mg PO DAILY [facility]; Protocol Last Admin: 11/25/22 10:45 Dose: 5 mg Documented By: HENRIK Magnesium Hydroxide (Milk Of Magnesia 30 Ml Oral.Susp) 30 ml PO DAILY PRN PRN Reason: Constipation Metoprolol Tartrate (Metoprolol Tartrate 12.5 Mg Halftab) 12.5 mg PO BID [facility]; Protocol Last Admin: 11/25/22 10:45 Dose: 12.5 mg Documented By: HENRIK Multivitamins/Vitamin C (Multivitamin Tablet) 1 tab PO DAILY [facility] Last Admin: 11/25/22 11:06 Dose: Not Given Documented By: HENRIK Non-Admin Reason: Patient Refused Ondansetron HCl (Ondansetron Hcl 4 Mg/2 Ml Vial) 4 mg IVPUSH Q8H PRN PRN Reason: Nausea and Vomiting Oxcarbazepine (Oxcarbazepine 300 Mg Tablet) 300 mg PO BID [facility] Last Admin: 11/25/22 15:31 Dose: 300 mg Documented By: HENRIK Pharmacy Consult (Consult Rx Perform Med Rec) 1 each MISCELLANE ONCE PRN PRN Reason: Consult order Sodium Biphosphate/Sodium Phosphate (Sodium Phosphate,[place]-Dibasic 133 Ml Enema) 118 ml [place] DAILY PRN PRN Reason: Constipation Sodium Chloride (0.9 % Sodium Chloride Flush 3 Ml Syringe) 3 ml IVFLUSH QSHIFT [facility] Last Admin: 11/25/22 15:31 Dose: 3 ml Documented By: HENRIK Labs 11/22/22 09:34 11/22/22 09:33 Assessment and Plan (1) Altered mental status: Status: Acute (2) Encephalopathy: Status: Acute (3) Pneumonia: Status: Acute Plan 87 year male with advanced dementia, h/o of PE on Eliquis, history of seizure? presenting with AMS, cause unclear etiology but sezure vs possible another stroke. He remains largely confused, desoriented doesn't follow any command, speech is gurgly, family states that he has been progresively worsening. 1/ AMS, CT suggest possible acute or subacute stroke, seen by Neurology they recommend to rule out status epilepticus EEG ordered, continue current anti epileptic medications difficult to perform neuro examination due to underlying dementia patient does not follow commands. 2/Dysphagia-- seen by speech therapy they recommended pureed/honey thick liqu ids. 2/ Alzheimers / vascular Dementia? with baseline agitation, continue all home meds. 3/HTN-- since patient passed swallow eval continue home medications and follow BP 4/ history of PE years ago, on eliquis, need to address continued use of Eliquis with PCP 5/history of Seizure, on Keppra IV 6/ HLD--statin 7/Acute lactic acidosis, not due to sepsis, ? seizure related, resolved with IV fluids. DVT prophylaxis-- on Eliquis CODE: DNR/DNI, MOLST on record. patient need continued inpatient hospitalization for EEG to evaluate for status epilepticus. Time Spent With Patient Time: Total time managing care of this patient today ____ minutes. Quality Stroke Does the patient have a stroke diagnosis?: Yes Reason for No Anti-thrombotic by Day Two: N/A - Med Ordered VTE Prior VTE?: Yes VTE Risk Level:: Medical - moderate - high VTE Device Contraindication: Treatment Not Indicated VTE Drug Contraindication: N/A - Med Ordered
[2022-11-25] MEDS: Atorvastatin Calcium 40 MG TABLET PO (21:01)
[2022-11-26 04:00] VITALS: BP 148/83; PULSE 81; RESP 20; TEMP 37.1; O2SAT 95
[2022-11-26 07:14] VITALS: BP 176/82; PULSE 80; RESP 20; TEMP 36.8; O2SAT 96
[2022-11-26] MEDS: lisinopriL 5 MG TABLET PO (08:44)
[2022-11-26] MEDS: amLODIPine Besylate 2.5 MG TABLET PO (08:44)
[2022-11-26] MEDS: Multivitamin TABLET 1 TAB PO (08:45)
[2022-11-26] MEDS: Metoprolol Tartrate 12.5 MG HALFTAB PO ×2 (08:45→21:43)
[2022-11-26] MEDS: OXcarbazepine 300 MG TABLET PO ×2 (08:46→21:43)
[2022-11-26] MEDS: Apixaban 5 MG TABLET PO ×2 (08:46→21:43)
[2022-11-26] MEDS: allopurinoL 100 MG TABLET 200 MG PO (08:47)
[2022-11-26] MEDS: Calcium + Vitamin D 250 MG TABLET 500 MG PO (08:48)
[2022-11-26] MEDS: Docusate Sodium 100 MG CAPSULE 200 MG PO (08:49)
[2022-11-26] MEDS: levETIRAcetam in NaCl (iso-os) 500 MG/100 ML PIGGYBACK 400 MG IV ×2 (09:26→21:43)
[2022-11-26] MEDS: 0.9 % Sodium Chloride Flush 3 ML SYRINGE IVFLUSH ×3 (09:49→21:43)
[2022-11-26 11:26] VITALS: BP 179/80; PULSE 80; RESP 20; TEMP 36.4; O2SAT 95
--- NOTE | 2022-11-26 12:08 | MHC.SL.DTX ---
Dysphagia Diet modifications: Last documented Solid diet consistencies: NPO Last documented Liquid consistency: NPO Last documented Medication Administration: Changes made to current diet?: Yes: UPGRADE to NDD2/NTL Liquid Consistency and Strategies: Liquid Intake Recommendation: [place] Thick Compensatory Strategies for Safe Swallow: Small Sips No Straws Compensatory Strategies for Safe Swallow(b): Sitting Upright (90 deg) No Straw Liquids from Cup Liquids from Spoon Small Bites and Sips Rate of Ingestion Change Oral Check Solid Food Consistency: Dietary Recommendations: Grnd/Mech Altered (NDD2) Additional Modifications to Solids: Pt seen for bedside dysphagia evaluation in the ED this afternoon. Pt was awake, but confused and reaching out/grabbing. Pt requires total 1:1 assistance feeding at baseline. Pt presented with significantly slowed and delayed oral phase, characterized by maladaptive munching behavior, oral holding, and moderate residuals. Pt's swallow was delayed and at times absent initiation. Pt produced intermittent throat clearing. Consistently with each swallow, RESEARCH STUDY ASSISTANT observed dip in 02 sat from 90 to 75-76, back up to 88-90, suspicious for microaspiration. Notified nursing on floor. Recommend NPO status d/t signs/symptoms of aspiration. Recommend frequent oral care daily. Ensure head of bed is elevated at least 30 degrees. RESEARCH STUDY ASSISTANT will continue to follow to monitor and re-assess swallow function. RESEARCH STUDY ASSISTANT is available for call-in over the weekend through Switchboard if indicated- RESEARCH STUDY ASSISTANT notified MD, RN, RD via [place] Message. Oral Medication Intake: Crushed with Puree Strategies and Precautions to be Taken for Safe Swallow: Sitting Upright (90 deg) No Straw Liquids from Cup Liquids from Spoon Small Bites and Sips Rate of Ingestion Change Oral Check Supervision While Eating and/Drinking: Total Assistance (1:1) Foods to Avoid: Swallowing Recommended Treatments: Compens. Strategy Educat. Level of Impact on: Daily activities: Severe Interpersonal interactions: Education: Employment: Community: Severe Prognosis for Improvement: Guarded Recommendation for Speech: Inpatient Speech Therapy Speech Therapy through Rehab Facility Comment: Recommend START on PUREED (NDD1) diet and HONEY THICK liquids via teaspoon or controlled cup (NO STRAWS), pills CRUSHED in PUREE. Pt requires total 1:1 assistance feeding and strict aspiration precautions. Minimize distractions during meal time. Hold tray if pt is lethargic or not attending to meal. Frequency/Duration: Date Range for Service Req: Timeline to reassess: Additional Comments: Pt lives at [facility] in dementia unit for LTC. Nursing staff reported that at baseline pt was eating a pureed diet with nectar thick liquids. Per review of EMR, pt's family had discussion w/ MD regarding goals of care & are agreeable to no further testing such as MRI, palliative/hospice care with goal of comfort and to return to SNF, they are ok with swallow eval and see if able to eat if not no artificial nutrition. Overall goal is to return to SNF. Treatment: Pt is slightly more alert this morning, sitting up in bed with a smile on his face. He is repositioned with the assistance of REAL ESTATE REPRESENTATIVE. He becomes mildly combative when touched, but responds well to verbal cues and a soft voice. Pt is initially rejecting PO trials, swiping away with his arms and hands. He eventually agrees to a bite of Puree (Pudding) and opens his mouth to accept these with good oral clearance and no overt s/s of aspiration. He is advanced to Ground/Mech Solids which he takes longer to prepare, but has only mild residue after each bite. He had anterior spillage with Honey Thick Liquids by cup. He tolerated by spoon with no overt s/s of aspiration. He tolerated [place]-Thick Liquids via Spoon, but was not able to use the straw. He tolerated Ice Chips, however further trials of Thin Liquids are witheld at this time due to significant Pt confusion. Assessment: Vehicle Monitor Technician Clinican/Clinical Fellow: No Supervisory Statement: I have reviewed and agree with the student/clinical fellow's documentation: N/A Speech Language Pathologist: Lukas Ribeiro M.A., CCC-RESEARCH STUDY ASSISTANT
[2022-11-26] MEDS: amLODIPine Besylate 5 MG TABLET PO (12:53)
--- NOTE | 2022-11-26 14:42 | MHC.SL.DTX ---
Dysphagia Diet modifications: Last documented Solid diet consistencies: Puree Last documented Liquid consistency: NTL Last documented Medication Administration: Changes made to current diet?: Yes: UPGRADE to NDD2/NTL Liquid Consistency and Strategies: Liquid Intake Recommendation: [place] Thick Compensatory Strategies for Safe Swallow: Small Sips No Straws Compensatory Strategies for Safe Swallow(b): Sitting Upright (90 deg) No Straw Liquids from Cup Liquids from Spoon Small Bites and Sips Rate of Ingestion Change Oral Check Solid Food Consistency: Dietary Recommendations: Grnd/Mech Altered (NDD2) Additional Modifications to Solids: Oral Medication Intake: Crushed with Puree Strategies and Precautions to be Taken for Safe Swallow: Sitting Upright (90 deg) No Straw Liquids from Cup Liquids from Spoon Small Bites and Sips Rate of Ingestion Change Oral Check Supervision While Eating and/Drinking: Total Assistance (1:1) Foods to Avoid: Swallowing Recommended Treatments: Compens. Strategy Educat. Level of Impact on: Daily activities: Severe Interpersonal interactions: Education: Employment: Community: Severe Prognosis for Improvement: Guarded Recommendation for Speech: Inpatient Speech Therapy Speech Therapy through Rehab Facility Comment: Pt requires total 1:1 assistance feeding and strict aspiration precautions. Minimize distractions during meal time. Hold tray if pt is lethargic or not attending to meal. Frequency/Duration: Date Range for Service Req: Timeline to reassess: Additional Comments: Pt lives at [facility] in dementia unit for LTC. Nursing staff reported that at baseline pt was eating a pureed diet with nectar thick liquids. Treatment: Pt is slightly more alert this morning, sitting up in bed with a smile on his face. He is repositioned with the assistance of PHYSICS INSTRUCTOR. He becomes mildly combative when touched, but responds well to verbal cues and a soft voice. Pt is initially rejecting PO trials, swiping away with his arms and hands. He eventually agrees to a bite of Puree (Pudding) and opens his mouth to accept these with good oral clearance and no overt s/s of aspiration. He is advanced to Ground/Mech Solids which he takes longer to prepare, but has only mild residue after each bite. He had anterior spillage with Honey Thick Liquids by cup. He tolerated by spoon with no overt s/s of aspiration. He tolerated [place]-Thick Liquids via Spoon, but was not able to use the straw. He tolerated Ice Chips, however further trials of Thin Liquids are witheld at this time due to significant Pt confusion. Assessment: Audio Visual Arts Director Clinican/Clinical Fellow: No Supervisory Statement: I have reviewed and agree with the student/clinical fellow's documentation: N/A Speech Language Pathologist: Lukas Ribeiro M.A., CCC-SALES DATA ANALYST
[2022-11-26 15:25] VITALS: BP 185/84; PULSE 75; RESP 18; TEMP 36.6; O2SAT 94
--- NOTE | 2022-11-26 15:26 | P.PNIM_ITS ---
Subjective Subjective Date of Service: 11/27/22 Interval History: remains pleasantly confused, not responding to questions does not follow commands, playing with bed sheet, suddenly waved with left hand, no acute overnight issues. noted to have elevated blood pressures otherwise no fevers no chills no hypoxia. Review of Systems unable to obtain review of system due to dementia. Physical Exam Vital Signs: Vital Signs: Last Vital Signs Temp 97.5 F 11/26/22 11:26 Pulse 80 11/26/22 11:26 Resp 20 11/26/22 11:26 BP 179/80 H 11/26/22 11:26 Pulse Ox 95 11/26/22 11:26 O2 Del Method Room Air 11/26/22 11:26 BMI result Body Mass Index 22.0 Const: Other: General? awake,, r esting comfortably in no acute distr ess.? EYES? unable to track fingers, unable to check f or vision Neck? no JVD. CVS? regular rate rhythm, Resp iratory lungs renny r to auscultation, no respiratory di stress, no wheeze, no rhonchi. Gastr ointestinal abdome n soft, nontender, bowel sounds wayne ble Extremities no edema. Neuro? prashant ble to do neuro ex amination since pa tient not followin g commands, no fac ial asymmetry,? Mo ving all 4 extremi ties. Skin no rash psych poor insigh t Objective Data Active Medications Allopurinol (Allopurinol 100 Mg Tablet) 200 mg PO DAILY [facility] Last Admin: 11/26/22 08:47 Dose: 200 mg Documented By: HENRIK Amlodipine Besylate (Amlodipine Besylate 2.5 Mg Tablet) 2.5 mg PO DAILY [facility]; Protocol Last Admin: 11/26/22 08:44 Dose: 2.5 mg Documented By: HENRIK Amlodipine Besylate (Amlodipine Besylate 5 Mg Tablet) 5 mg PO DAILY [facility]; Protocol Last Admin: 11/26/22 12:53 Dose: 5 mg Documented By: HENRIK Apixaban (Apixaban 5 Mg Tablet) 5 mg PO BID [facility] Last Admin: 11/26/22 08:46 Dose: 5 mg Documented By: HENRIK Atorvastatin Calcium (Atorvastatin Calcium 40 Mg Tablet) 40 mg PO BEDTIME [facility] Last Admin: 11/25/22 21:01 Dose: 40 mg Documented By: EBONY Bisacodyl (Bisacodyl 10 Mg Supp.Rect) 10 mg [place] DAILY PRN PRN Reason: Constipation Calcium Carbonate/Cholecalciferol (Calcium + Vitamin D 250 Mg Tablet) 500 mg PO DAILY [facility] Last Admin: 11/26/22 08:48 Dose: 500 mg Documented By: HENRIK Docusate Sodium (Docusate Sodium 100 Mg Capsule) 200 mg PO DAILY [facility] Last Admin: 11/26/22 08:49 Dose: 200 mg Documented By: HENRIK Hydralazine HCl (Hydralazine Hcl 20 Mg/Ml Vial) 5 mg IVPUSH Q6H PRN; Protocol PRN Reason: Sbp > 180 Levetiracetam (Keppra) 500 mg in 100 mls @ 400 mls/hr IV BID [facility] Last Infusion: 11/26/22 09:50 Dose: 0 mls/hr Documented By: HENRIK Lisinopril (Lisinopril 5 Mg Tablet) 5 mg PO DAILY [facility]; Protocol Last Admin: 11/26/22 08:44 Dose: 5 mg Documented By: HENRIK Magnesium Hydroxide (Milk Of Magnesia 30 Ml Oral.Susp) 30 ml PO DAILY PRN PRN Reason: Constipation Metoprolol Tartrate (Metoprolol Tartrate 12.5 Mg Halftab) 12.5 mg PO BID [facility]; Protocol Last Admin: 11/26/22 08:45 Dose: 12.5 mg Documented By: HENRIK Multivitamins/Vitamin C (Multivitamin Tablet) 1 tab PO DAILY [facility] Last Admin: 11/26/22 08:45 Dose: 1 tab Documented By: HENRIK Ondansetron HCl (Ondansetron Hcl 4 Mg/2 Ml Vial) 4 mg IVPUSH Q8H PRN PRN Reason: Nausea and Vomiting Oxcarbazepine (Oxcarbazepine 300 Mg Tablet) 300 mg PO BID [facility] Last Admin: 11/26/22 08:46 Dose: 300 mg Documented By: HENRIK Pharmacy Consult (Consult Rx Perform Med Rec) 1 each MISCELLANE ONCE PRN PRN Reason: Consult order Sodium Biphosphate/Sodium Phosphate (Sodium Phosphate,[place]-Dibasic 133 Ml Enema) 118 ml [place] DAILY PRN PRN Reason: Constipation Sodium Chloride (0.9 % Sodium Chloride Flush 3 Ml Syringe) 3 ml IVFLUSH QSHIFT [facility] Last Admin: 11/26/22 09:49 Dose: 3 ml Documented By: HENRIK Labs 11/22/22 09:34 11/22/22 09:33 Assessment and Plan (1) Altered mental status: Status: Acute (2) Encephalopathy: Status: Acute (3) Pneumonia: Status: Acute Plan 87 year male with advanced dementia, h/o of PE on Eliquis, history of seizure? presenting with AMS, cause unclear etiology but sezure vs possible another stroke. He remains largely confused, desoriented doesn't follow any command, speech is gurgly, family states that he has been progresively worsening. 1/ acute encephalopathy, CT suggest possible acute or subacute stroke, moderate to severe diffuse cerebral atrophy and moderate to severe chronic microvascular ischemic changes seen by Neurology they recommend to rule out status epilepticus, EEG obtained showed generalized slowing with no evidence of seizure disorder, continue current anti epileptic medications, difficult to perform neuro examination due to underlying dementia patient does not follow commands. continue home medications 2/Dysphagia-- seen by speech therapy they advanced diet to ground mechanical and nectar thick liquids, patient need one-to-one feed speech will continue to follow. 2/ Alzheimers / vascular Dementia? with baseline agitation, continue all home meds. 3/HTN-- elevated blood pressures, continue home medications and follow BP closely if remain elevated will adjust dosage 4/ history of PE years ago, on eliquis, need to address continued use of Eliquis with PCP 5/history of Seizure, on Keppra IV, will transition to by mouth Keppra, no seizure-like activity noted. continue seizure precautions 6/ HLD--statin 7/Acute lactic acidosis, not due to sepsis, ? seizure related, resolved with IV fluids. DVT prophylaxis-- on Eliquis CODE: DNR/DNI, MOLST on record. need continued inpatient hospitalization to assess neuro status / seizure/ blood pressure monitoring and dysphagia Time Spent With Patient Time: Total time managing care of this patient today ____ minutes. Quality Stroke Does the patient have a stroke diagnosis?: Yes Reason for No Anti-thrombotic by Day Two: N/A - Med Ordered VTE Prior VTE?: Yes VTE Risk Level:: Medical - moderate - high VTE Device Contraindication: Treatment Not Indicated VTE Drug Contraindication: N/A - Med Ordered
[2022-11-26 19:33] VITALS: BP 115/99; PULSE 86; RESP 17; TEMP 36.1; O2SAT 95
[2022-11-26] MEDS: Atorvastatin Calcium 40 MG TABLET PO (21:43)
[2022-11-26 23:23] VITALS: BP 135/73; PULSE 74; RESP 18; TEMP 36.1; O2SAT 95
[2022-11-27 03:27] VITALS: BP 150/70; PULSE 84; RESP 18; TEMP 36.4; O2SAT 93
[2022-11-27 07:28] VITALS: BP 162/72; PULSE 85; RESP 18; TEMP 36.4; O2SAT 93
--- NOTE | 2022-11-27 09:45 | P.DS_ITS ---
DS: Providers Provider Date of Service: 11/27/22 Date of admission: 11/22/22 11:41 Primary care physician: AMARILIS MATHEW Consults: 11/24/22 10:02 Consult to Neurology Routine Consulting Provider: [facility] Reason for consultation: altered mental seizure vs stroke Has provider been notified: No DS: Diagnosis Discharge Diagnosis (1) Altered mental status: Status: Acute (2) Encephalopathy: Status: Acute (3) Pneumonia: Status: Acute DS: Summary Hospital Course Hospital Course: Date of Service: 11/22/22 Chief Complaint: AMS Chief Complaint: Fever, Hypoxia 87 year old male with advanced dementia, Hypertension, HLD, h/o Pulmonary embolism from [facility] with DNR/DNi status on MOLST form, history of seizure on keppr. He was brought to the ED to be evaluted? for AMS.? Patient himself is quite demented and out of it and is not able give any history. History obtained from ED rcords and retirement ([facility])? records.? He was sent to be evaluated for change in baseline. retirement records states that patient was found laying on accross bed face down with labored breathing, body flacid BP 220/97. ED reported some facial assymetry that I did not appreciate.? Work up with CT shows? 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 he has difficulty swallowing and failed bed side swallow. ED discussed with Neurology with no further recommendation. hospital course: 87 year male with advanced dementia, h/o of PE on Eliquis, history of seizure? presenting with AMS, cause unclear etiology but sezure vs possible another stroke. He remains largely confused, desoriented doesn't follow any command, speech is gurgly, family states that he has been progresively worsening. 1/? acute encephalopathy, patient remains pleasantly confused, CT suggest? possible acute or subacute stroke, moderate to severe diffuse cerebral atrophy and moderate to severe chronic microvascular ischemic changes, seen by Neurology they recommend to? rule out status epilepticus, EEG obtained showed generalized slowing with no evidence of seizure disorder, continue cur rent? anti epileptic medications,? difficult to perform neuro examination due to underlying dementia, patient does not follow commands.? continue home medications. 2/Dysphagia--? seen by speech therapy they?rec. ground mechanical and nectar thick liquids, patient need one-to-one feed recommend continued follow-up with speech therapy. 2/ Alzheimers / vascular Dementia? no behavioral issues noted,? continue all home meds. 3/HTN--? continue home medications and follow BP closely . 4/ history of PE years ago, on eliquis, need to address continued use of Eliquis with PCP. 5/history of Seizure, on Keppra , EEG showed no seizure like activity 6/ HLD--statin 7/Acute lactic acidosis, not due to sepsis, ? seizure related, resolved with IV fluids. Time Spent with Patient Time attestation: Total time managing care of this patient today ____ minutes. Discharge coordination time: Greater than 30 minutes Quality: Safe Use of Opioids Does Pt have an Active Cancer Diagnosis on the Problem List?: No Quality: Stroke Does the patient have a stroke diagnosis?: No Physical Exam Vital Signs: Vital Signs: Last Vital Signs Temp 97.6 F 11/27/22 07:28 Pulse 85 11/27/22 07:28 Resp 18 11/27/22 07:28 BP 162/72 H 11/27/22 07:28 Pulse Ox 93 11/27/22 07:28 O2 Del Method Room Air 11/27/22 07:28 BMI result Body Mass Index 22.0 Const: Other: General? awake,, resting comfortably in no acute distress.? EYES? unable to track fingers, unable to check for vision Neck? no JVD. CVS? regular rate rhythm, Respiratory lungs clear to auscultation, no respiratory distress, no wheeze, no rhonchi. Gastrointestinal abdomen soft, nontender, bowel sounds audible Extremities no edema. Neuro? unable to do neuro examination since patient not following commands, no facial asymmetry,? Moving all 4 extremities. Skin no rash psych poor insight DS: Data Data Completed and Pending Labs on day of discharge: Preliminary micro results at discharge 11/22/22 09:32 Blood Culture - Preliminary Blood - Venous No growth after 48 hours. Discharge Plan Discharge Anticipated Discharge Date/Time: 11/27/22 09:38 Patient Disposition: Xfer SNF Discharge Diagnosis: acute encephalopathy acute lactic acidosis Referrals: AMARILIS MATHEW [Primary Care Provider] - 1 Week Discharge Medications: Continued amlodipine 5 mg Tablet 5 mg PO DAILY atorvastatin [Lipitor] 40 mg Tablet 40 mg PO BEDTIME acetaminophen 325 mg Tablet 650 mg PO Q6H PRN (Reason: Pain) oxcarbazepine 300 mg Tablet 300 mg PO BID magnesium hydroxide [Milk of Magnesia] 400 mg/5 mL Suspension 30 ml PO DAILY PRN (Reason: Constipation) bisacodyl 10 mg Suppository 10 mg NE DAILY PRN (Reason: Constipation) Fleet Enema 19-7 gram/118 mL Enema 118 ml NE DAILY PRN (Reason: Constipation) docusate sodium [Colace] 100 mg Capsule 200 mg PO DAILY lisinopril 5 mg Tablet 5 mg PO DAILY metoprolol tartrate 25 mg Tablet 12.5 mg PO BID allopurinol 100 mg tablet 2 tab PO DAILY Eliquis 5 mg tablet 1 tab PO BID multivitamin Tablet 1 tab PO DAILY amlodipine 2.5 mg tablet 2.5 mg PO DAILY levetiracetam 100 mg/mL Solution 500 mg PO BID Calcium 600 + D(3) 600 mg-5 mcg (200 unit) Capsule 1 cap PO DAILY Discharge Orders: Discharge Order (Routine); Ordered 11/27/22 Ordered By: Damion Kramer Activity on Discharge: As tolerated Stand Alone Forms: Patient Portal Discharge page Care Plan Goals: continue ground mechanical and nectar thick liquids continue speech therapy evaluation need one-to-one feeds Health Concerns: dysphagia/ dementia/ seizure disorder Plan of Treatment: follow-up with primary care physician Assessment: as above
[2022-11-27] MEDS: Calcium + Vitamin D 250 MG TABLET 500 MG PO (10:22)
[2022-11-27] MEDS: amLODIPine Besylate 2.5 MG TABLET PO (10:23)
[2022-11-27] MEDS: amLODIPine Besylate 5 MG TABLET PO (10:23)
[2022-11-27] MEDS: Metoprolol Tartrate 12.5 MG HALFTAB PO (10:23)
[2022-11-27] MEDS: allopurinoL 100 MG TABLET 200 MG PO (10:24)
[2022-11-27] MEDS: lisinopriL 5 MG TABLET PO (10:24)
[2022-11-27] MEDS: Apixaban 5 MG TABLET PO (10:24)
[2022-11-27] MEDS: OXcarbazepine 300 MG TABLET PO (10:24)
[2022-11-27] MEDS: levETIRAcetam Oral Soln 500 MG/5 ML PO (10:24)
[2022-11-27] MEDS: Multivitamin TABLET 1 TAB PO (10:24)
[2022-11-27] MEDS: 0.9 % Sodium Chloride Flush 3 ML SYRINGE IVFLUSH (10:25)
[2022-11-27 11:13] VITALS: BP 174/82; PULSE 91; RESP 20; TEMP 36.9; O2SAT 94
[2022-11-27 12:34] VITALS: BP 160/78
--- NOTE | 2022-11-27 13:18 | MHC.CM.PN ---
IMM 11/27/22 DELIVERED TO PT'S SON CESARIO AND EMAILED TO [email or web address], MOUNIKA AGREEABLE TO D/C PLAN TO RETURN TO [facility] AT 1:30 VIA [facility] FOR BLS TRANSPORT
== END 2022-11-27 14:22 | disposition skilled nursing facility (03) | DRG 101 ==
LOC: HO.ED 10:44 → HO.EDOVER 11:44 → HO.IMC 16:06
PROVIDERS: Admitting Provider Internal Medicine; Emergency Provider Emergency Medicine; PCP Emergency Medicine; Visit Provider Hospitalist
DX: G40.909 Epilepsy, unspecified, not intractable, without status epilepticus (principal); E87.21 Acute metabolic acidosis; F02.C11 Dementia in other diseases classified elsewhere, severe, with agitation; F01.C11 Vascular dementia, severe, with agitation; Z66 Do not resuscitate; E78.5 Hyperlipidemia, unspecified; R13.10 Dysphagia, unspecified; G30.9 Alzheimer's disease, unspecified; Z86.711 Personal history of pulmonary embolism; Z79.01 Long term (current) use of anticoagulants; Z79.899 Other long term (current) drug therapy
CPT/HCPCS: 36415; 70450; 71045; 80048; 80307; 81001; 82947; 83605; 84443; 84484; 85025; 85610; 85730; 87040; 87147; 87205; 92526; 92610; 93005; 95816; 97161; 99285; J1953

== ENCOUNTER 2022-12-23 01:28 | Inpatient (IN) | payer MEDICARE, SELFPAY ==
[2022-12-23] VITALS (12 sets, daily range): BP systolic 122–199; BP diastolic 53–95; PULSE 70–100; RESP 12–22; TEMP 36.5–37.7; O2SAT 90–96; BMI 22.5
--- NOTE | ~2022-12-23 | XR_ITS ---
EXAMINATION: XR PELVIS CLINICAL INFORMATION: Postop COMPARISON: Right hip and pelvis radiograph from 12/09/2022 TECHNIQUE: AP view of the pelvis. FINDINGS: Status post right hip arthroplasty. Orthopedic hardware is grossly intact. Postsurgical soft tissue air and surgical kathy overlying the right hip. No acute visible fracture or dislocation. Joint spaces and alignment are maintained. Radiopaque material noted in the pelvis. XR/XR pelvis 1-2V IMPRESSION: 1. Status post right hip arthroplasty with intact orthopedic hardware. 2. Postsurgical soft tissue air and surgical kathy overlying the right hip. 3. No acute visible fracture or dislocation.
--- NOTE | ~2022-12-23 | CT_ITS ---
EXAMINATION: CT HIP WITHOUT CONTRAST, RIGHT CLINICAL INFORMATION: Hip fracture COMPARISON: Radiographs from the same day TECHNIQUE: No intravenous contrast was utilized. Multidetector helical imaging was performed through the right hip. Coronal and sagittal reformatted images were created. This CT examination was performed using dose optimization techniques as appropriate, variously including the following: *Automated exposure control *Adjustment of mA and/or kV according to patient size (this includes techniques or standardized protocols for targeted exams where dose is matched to indication/reason for exam; i.e. extremities or head) *Use of iterative reconstruction technique DLP: 407 mGy-cm FINDINGS: Significantly limited patient positioning per technologist report. There is an impacted fracture of the right femoral neck. Femoral head fragment remains aligned with the acetabulum. There is mild degenerative change across both hips. Sacroiliac joints and pubic symphysis are intact. There are degenerative changes of the visualized lower lumbar spine. There is extensive sigmoid colon diverticulosis. CT/CT hip RT wo IV con IMPRESSION: Impacted fracture of the right femoral neck.
--- NOTE | ~2022-12-23 | XR_ITS ---
EXAMINATION: XR CHEST CLINICAL INFORMATION: Postop fever COMPARISON: 12/23/2022 and 11/22/2022 TECHNIQUE: Frontal view of the chest was obtained. FINDINGS: The heart size is normal. There is no evidence of CHF. Some bibasilar atelectasis is present, left greater than right. No pleural effusions. No suspicious lung masses. There is mild gaseous distention of bowel beneath the diaphragm. XR/XR chest 1V IMPRESSION: Bibasilar atelectasis, left greater than right.
--- NOTE | ~2022-12-23 | XR_ITS ---
EXAMINATION: XR HIP, RIGHT CLINICAL INFORMATION: Fall and right hip pain COMPARISON: None available. TECHNIQUE: Two views of the right hip. AP pelvis. FINDINGS: Significantly limited evaluation due to patient positioning. There is mild contour deformity of the right femoral neck concerning for acute fracture. Alignment across the hips appears maintained. Remainder of the pelvis is not adequately assessed. XR/XR hip RT w PEL1V IMPRESSION: Significantly limited evaluation due to positioning. Mild contour deformity of the right femoral neck, concerning for acute fracture in the setting of trauma. CT may provide more definitive evaluation.
--- NOTE | ~2022-12-23 | CT_ITS ---
EXAMINATION: CT HEAD WITHOUT CONTRAST CLINICAL INFORMATION: Fall, on anticoagulation COMPARISON: 11/22/2022 TECHNIQUE: Contiguous axial imaging was performed from the skull base to vertex without intravenous administration of contrast. This CT examination was performed using dose optimization techniques as appropriate, variously including the following: *Automated exposure control *Adjustment of mA and/or kV according to patient size (this includes techniques or standardized protocols for targeted exams where dose is matched to indication/reason for exam; i.e. extremities or head) *Use of iterative reconstruction technique DLP: 1060 mGy-cm FINDINGS: There is moderate to severe periventricular white matter hypoattenuation consistent with chronic small vessel ischemic disease. Hypoattenuation throughout the right posterior cerebral artery territory appears somewhat more extensive than on the prior examination, suspicious for sequelae of evolving infarct. Suspected region of chronic infarct in the inferior left temporal lobe. Moderate volume loss is noted. There is no evidence of acute intracranial hemorrhage. No abnormal mass-effect or midline shift is seen. Rocha to white matter differentiation is well preserved. No extra-axial fluid collections are identified. The ventricles are normal in size. The osseous structures and soft tissues are normal. The mastoid air cells and visualized portions of the paranasal sinuses are well-aerated. CT/CT head/brain wo IV con IMPRESSION: 1. No acute intracranial hemorrhage. 2. Hypoattenuation throughout the right posterior cerebral artery territory appears somewhat more extensive than on 11/22/2022, suspicious for sequelae of evolving infarct. 3. Moderate to severe chronic small vessel ischemic disease and volume loss.
--- NOTE | ~2022-12-23 | XR_ITS ---
EXAMINATION: XR CHEST CLINICAL INFORMATION: Right hip fracture COMPARISON: 11/22/2022 TECHNIQUE: Frontal view of the chest was obtained. FINDINGS: Significantly limited examination due to patient positioning. Right lung appears well-aerated, without pneumothorax or pleural effusion. Left lung is not adequately evaluated due to patient positioning. Cardiomediastinal silhouette is not adequately assessed. No appreciable acute osseous findings on limited exam. XR/XR chest 1V IMPRESSION: Significantly limited examination due to patient positioning. Right lung appears well-aerated, and the left lung is not adequately assessed.
--- NOTE | 2022-12-23 01:52 | ECG_ITS ---
Test Reason : FALL Blood Pressure : / mmHG Vent. Rate : 093 BPM Atrial Rate : 093 BPM P-R Int : 154 ms QRS Dur : 088 ms QT Int : 364 ms P-R-T Axes : 065 017 030 degrees QTc Int : 452 ms Normal sinus rhythm Normal ECG When compared with ECG of 22-NOV-2022 09:58, No significant change was found Referred By: Corky Raman Electronically Signed By:DONSI MORELAND MD
--- NOTE | 2022-12-23 02:04 | ED.FALL ---
HPI - Fall General Chief Complaint: Fall Stated Complaint: FALL Time Seen by Provider: 12/23/22 01:36 Source: patient and EMS Mode of arrival: EMS Limitations: no limitations History of Present Illness HPI Narrative: 87-year-old male from [facility] patient had unwitnessed fall found have right hip fracture patient is DNR/DNI/do not transport to the hospital family approved transportation for further treatment. Patient is on Eliquis unknown head trauma. Related Data Home Medications Medication Instructions Recorded Confirmed acetaminophen 325 mg tablet 650 mg PO Q6H PRN Pain 12/03/20 12/23/22 amlodipine 5 mg tablet 5 mg PO DAILY 12/03/20 12/23/22 atorvastatin 40 mg tablet (Lipitor) 40 mg PO BEDTIME 12/03/20 12/23/22 bisacodyl 10 mg rectal suppository 10 mg NE DAILY PRN Constipation 12/03/20 12/23/22 docusate sodium 100 mg capsule 200 mg PO DAILY 12/03/20 12/23/22 (Colace) lisinopril 5 mg tablet 5 mg PO DAILY 12/03/20 12/23/22 magnesium hydroxide 400 mg/5 mL 30 ml PO DAILY PRN Constipation 12/03/20 12/23/22 oral suspension (Milk of Magnesia) metoprolol tartrate 25 mg tablet 12.5 mg PO BID 12/03/20 12/23/22 oxcarbazepine 300 mg tablet 300 mg PO BID 12/03/20 12/23/22 sodium phosphates 19 gram-7 118 ml NE DAILY PRN Constipation 12/03/20 12/23/22 gram/118 mL enema (Fleet Enema) allopurinol 100 mg tablet 2 tab PO DAILY 06/01/21 12/23/22 apixaban 5 mg tablet (Eliquis) 1 tab PO BID 06/01/21 12/23/22 amlodipine 2.5 mg tablet 2.5 mg PO DAILY 11/22/22 12/23/22 calcium carbonate 600 mg-vitamin 1 cap PO DAILY 11/22/22 12/23/22 D3 5 mcg (200 unit) capsule (Calcium 600 + D(3)) levetiracetam 100 mg/mL oral 500 mg PO BID 11/22/22 12/23/22 solution multivitamin 1 tab PO DAILY 11/22/22 12/23/22 Allergies Allergy/AdvReac Type Severity Reaction Status Date / Time hydrochlorothiazide Allergy Unknown Verified 12/23/22 01:49 niacin Allergy Unknown Verified 12/23/22 01:49 nifedipine Allergy Unknown Verified 12/23/22 01:49 Review of Systems Review of Systems: All other systems are reviewed and are negative Constitutional: Reports as per HPI and Reports no additional constitutional complaints Eyes: Reports as per HPI and Reports no additional eye complaints Reports system reviewed and no additional complaints, except as documented Cardiovascular: Reports as per HPI and Reports no additional cardiovascular complaints Respiratory: Reports as per HPI and Reports no additional respiratory complaints Gastrointestinal: Reports as per HPI and Reports no additional gastrointestinal complaints Genitourinary: Reports no additional female genitourinary complaints Musculoskeletal: Reports no additional musculoskeletal complaints Skin/Breast: Reports system reviewed and no additional complaints, except as docu Psychiatric: Reports no additional psychiatric complaints Endocrine: Reports no additional endocrine complaints Hematologic/Lymphatic: Reports no additional hematologic/lymphatic complaints Allergic/Immunologic: Reports no additional allergic/immunologic complaints Reports system reviewed and no additional complaints, except as documented and Reports Abnormal speech present [facility] Past Medical History Medical History Altered mental status Bradycardia COPD (chronic obstructive pulmonary disease) Dementia Dysphagia Gout History of pulmonary embolism Hyperlipidemia Hypertension Hyponatremia Kidney disease Metabolic encephalopathy Pneumonia Seizure Social History Social History Household Members: Other Housing: [facility] Do you presently have visiting nurse or other home services: No Unable to assess alcohol history related to: Unable to respond Patient Tobacco Use Status: Tobacco use Unknown Smoked in Last 30 Days: No Use of substances other than those prescribed or required for medical reasons: No Advance Directives: Yes Advance Directives on File: Yes Advance Directives Date on File: 12/03/20 service: Yes Current occupational status: retired Physical Exam Vital Signs: Vital Signs: Last Vital Signs Temp 99.8 F 12/23/22 01:35 Pulse 90 12/23/22 04:09 Resp 12 12/23/22 04:09 BP 133/67 12/23/22 04:09 Pulse Ox 90 L 12/23/22 04:09 O2 Del Method Room Air 12/23/22 04:09 BMI result Body Mass Index 22.5 Vital signs have been reviewed as appeared to be correct. Blood pressure normal. Heart rate normal. Respiration rate normal. Temperature normal. Oxygen saturation normal. Appearance: Alert. Oriented X3. No acute distress. Head: Normal external exam. Normocephalic. Atraumatic. No [place] signs noted. No raccoon eyes noted Eyes: PERRLA. EOMI. Conjunctiva and sclera normal. Eyelids normal. ENT: TM's Normal. Pharynx normal. Uvula midline. Moist mucous membranes. No trismus noted. No drooling noted. No muffled voice noted. Neck: Normal inspection. Neck supple. FROM. No adenopathy. Thyroid Normal. No meningeal signs. No neck mass noted. CVS: Normal heart rate and rhythm. Heart sound normal. No murmurs noted. Pulses normal throughout. Respiratory: No respiratory distress. Painless inspiration. Breath sounds normal. No wheezes/rales/rhonchi noted. Chest nontender. No accessory muscle usage noted or decreased air movement noted. Abdomen: Soft and nontender. Bowel sounds normal in all 4 quadrants. No distention noted. No organomegaly noted. No visible injury noted. Back: No CVA tenderness. Full range of motion noted. Skin: Skin warm and dry. Normal skin color. Normal skin turgor. No rashes/lesions/lacerations noted. Extremities: No lower extremity edema. Extremities exhibit normal range of motion. Extremities nontender. Neuro: Oriented X 3. Cranial nerve exam: II-XII are grossly intact No motor deficit. No sensory deficit. Reflexes normal. Course Course Course Narrative: 87-year-old male s/p unwitnessed fall and a right hip fracture patient will be admitted to medical service for further orthopedic evaluation and consultation. Patient has UTI will start the patient on ceftriaxone. Medications Administered Discontinued Medications Generic Name Dose Route Start Last Admin Trade Name Freq PRN Reason Stop Dose Admin Morphine Sulfate 2 mg 12/23/22 02:48 12/23/22 02:54 Morphine Sulfate 2 Mg/Ml Cartridge IVPUSH 12/23/22 02:49 2 mg ONCE ONE Administration Protocol Medical Decision Making Differential Diagnosis Differential Diagnoses: The differential diagnosis associated with the presentation includes (Severe anemia, electrolyte abnormality, ACS, UTI, hip fracture, pelvic fracture.) Severe anemia, Admission/Observation Consideration of admission/observation: Escalation of care including admission/observation considered Consult Healthcare Provider Management of the patient was discussed with: Hospitalist (Dr. Varghese) and Cartridge Gauger (Paulino.) Lab Data MDM Lab Attestation statement: I reviewed the patient's lab results. 12/23/22 01:58 12/23/22 01:58 Labs: Lab Results 12/23/22 12/23/22 12/23/22 Range/Units 01:58 01:58 01:58 WBC Cancelled RBC Cancelled Hgb Cancelled Hct Cancelled MCV Cancelled MCH Cancelled MCHC Cancelled RDW Cancelled Plt Count Cancelled MPV Cancelled Immature Gran % (Auto) Cancelled Neut % (Auto) Cancelled Lymph % (Auto) Cancelled [place] % (Auto) Cancelled Eos % (Auto) Cancelled Baso % (Auto) Cancelled Lymph # (Auto) Cancelled [place] # (Auto) Cancelled Eos # (Auto) Cancelled Baso # (Auto) Cancelled Abs Immat Gran (auto) Cancelled Absolute Neuts (auto) Cancelled Absolute Nucleated RBC Cancelled Nucleated RBC % (auto) Cancelled PT 13.4 H (10.0-13.1) SEC INR 1.2 H (0.9-1.1) Sodium 146 H (135-145) mmol/L Potassium 4.3 (3.3-5.1) mmol/L Chloride 112 H (96-108) mmol/L Carbon Dioxide 25 (22-29) mmol/L Anion Gap 13 (12-20) BUN 29 H (9-16) mg/dL Creatinine 1.27 (0.5-1.4) mg/dL Estim Creat Clear Calc 38.0 Estimated GFR 54 Random Glucose 123 H (60-115) mg/dL Calcium 9.2 (8.4-10.2) mg/dL Total Bilirubin 0.6 (0.0-1.0) mg/dL Direct Bilirubin 0.2 (0.0-0.5) mg/dL AST 20 (5-37) U/L ALT 13 (0-40) U/L Alkaline Phosphatase 119 H (39-117) U/L Troponin I High Sens (<3.5-35.0) ng/L Total Protein 7.3 (6.5-8.0) g/dL Albumin 3.6 (3.5-5.0) g/dL Lipase 31 (8-78) U/L Urine Color Urine Appearance Urine pH (5.0-9.0) Ur Specific [place] (1.005-1.025) Urine Protein (Neg-Trace) mg/dL Urine Glucose (UA) (Negative) mg/dL Urine Ketones (Negative) mg/dL Urine Blood (Negative) Urine Nitrite (Negative) Ur Leukocyte Esterase (Negative) Urine RBC (0-2) /HPF Urine WBC (0-5) /HPF Ur Squamous Epith Cells (0-2) /HPF Urine Bacteria (None Seen) Hyaline Casts (0-2) /LPF COVID-19 (REZA) (Negative) COVID-19 Clin Com Blood Type Antibody Screen 12/23/22 12/23/22 12/23/22 Range/Units 01:58 01:58 01:58 WBC 11.4 H RBC 4.52 L Hgb 14.0 Hct 41.6 L MCV 92.0 MCH 31.0 MCHC 33.7 RDW 13.3 Plt Count 213 MPV 9.9 Immature Gran % (Auto) 0.4 Neut % (Auto) 79.5 H Lymph % (Auto) 12.4 L [place] % (Auto) 5.5 Eos % (Auto) 1.9 Baso % (Auto) 0.3 Lymph # (Auto) 1.4 [place] # (Auto) 0.6 Eos # (Auto) 0.2 Baso # (Auto) 0.0 Abs Immat Gran (auto) 0.04 H Absolute Neuts (auto) 9.0 H Absolute Nucleated RBC 0.000 Nucleated RBC % (auto) 0.0 PT (10.0-13.1) SEC INR (0.9-1.1) Sodium (135-145) mmol/L Potassium (3.3-5.1) mmol/L Chloride (96-108) mmol/L Carbon Dioxide (22-29) mmol/L Anion Gap (12-20) BUN (9-16) mg/dL Creatinine (0.5-1.4) mg/dL Estim Creat Clear Calc Estimated GFR Random Glucose (60-115) mg/dL Calcium (8.4-10.2) mg/dL Total Bilirubin (0.0-1.0) mg/dL Direct Bilirubin (0.0-0.5) mg/dL AST (5-37) U/L ALT (0-40) U/L Alkaline Phosphatase (39-117) U/L Troponin I High Sens 53.9 H D (<3.5-35.0) ng/L Total Protein (6.5-8.0) g/dL Albumin (3.5-5.0) g/dL Lipase (8-78) U/L Urine Color Urine Appearance Urine pH (5.0-9.0) Ur Specific [place] (1.005-1.025) Urine Protein (Neg-Trace) mg/dL Urine Glucose (UA) (Negative) mg/dL Urine Ketones (Negative) mg/dL Urine Blood (Negative) Urine Nitrite (Negative) Ur Leukocyte Esterase (Negative) Urine RBC (0-2) /HPF Urine WBC (0-5) /HPF Ur Squamous Epith Cells (0-2) /HPF Urine Bacteria (None Seen) Hyaline Casts (0-2) /LPF COVID-19 (REZA) Negative (Negative) COVID-19 Clin Com See Note Blood Type Antibody Screen 12/23/22 12/23/22 Range/Units 02:01 05:40 WBC RBC Hgb Hct MCV MCH MCHC RDW Plt Count MPV Immature Gran % (Auto) Neut % (Auto) Lymph % (Auto) [place] % (Auto) Eos % (Auto) Baso % (Auto) Lymph # (Auto) [place] # (Auto) Eos # (Auto) Baso # (Auto) Abs Immat Gran (auto) Absolute Neuts (auto) Absolute Nucleated RBC Nucleated RBC % (auto) PT (10.0-13.1) SEC INR (0.9-1.1) Sodium (135-145) mmol/L Potassium (3.3-5.1) mmol/L Chloride (96-108) mmol/L Carbon Dioxide (22-29) mmol/L Anion Gap (12-20) BUN (9-16) mg/dL Creatinine (0.5-1.4) mg/dL Estim Creat Clear Calc Estimated GFR Random Glucose (60-115) mg/dL Calcium (8.4-10.2) mg/dL Total Bilirubin (0.0-1.0) mg/dL Direct Bilirubin (0.0-0.5) mg/dL AST (5-37) U/L ALT (0-40) U/L Alkaline Phosphatase (39-117) U/L Troponin I High Sens (<3.5-35.0) ng/L Total Protein (6.5-8.0) g/dL Albumin (3.5-5.0) g/dL Lipase (8-78) U/L Urine Color Yellow Urine Appearance Cloudy Urine pH 7.0 (5.0-9.0) Ur Specific [place] 1.025 (1.005-1.025) Urine Protein 300 (3+) H (Neg-Trace) mg/dL Urine Glucose (UA) Negative (Negative) mg/dL Urine Ketones Trace (Negative) mg/dL Urine Blood Negative (Negative) Urine Nitrite Negative (Negative) Ur Leukocyte Esterase Small (1+) H (Negative) Urine RBC 0-2 (0-2) /HPF Urine WBC >50 H (0-5) /HPF Ur Squamous Epith Cells 0-2 (0-2) /HPF Urine Bacteria 4+ (None Seen) Hyaline Casts 0-2 (0-2) /LPF COVID-19 (REZA) (Negative) COVID-19 Clin Com Blood Type B Positive Antibody Screen NEGATIVE Independent Interpretation I performed an independent interpretation of an: Plain X-Ray (chest: no acute pathology.) Radiology Impression Discussion of test interpretation with radiology: I have reviewed the radiologist's reading. Discharge Plan Discharge Clinical Impression: Closed fracture of right hip, Fall Patient Disposition: Admitted As Inpatient
[2022-12-23 02:06] LABS: MANUAL DIFF FLAG NO
[2022-12-23 02:08] LABS: Basophils Percent Auto 0.3 % (0-2); Eosinophils Absolute Auto 0.2 X10*3/uL (0.0-0.4); Eosinophils Percent Auto 1.9 % (0-4); Hematocrit 41.6 % (42.0-52.0); Imm Gran Abs Auto 0.04 X10*3/uL (0.00-0.03); Imm Gran Pct Auto 0.4 % (0.0-0.4); Lymphocytes Absolute Auto 1.4 X10*3/uL (1.2-4.9); Lymphocytes Percent Auto 12.4 % (20-40); Mean Corpuscular HGB Conc 33.7 g/dl (31.0-36.0); Mean Platelet Volume 9.9 fL (9.4-12.4); Monocytes Absolute Auto 0.6 X10*3/uL (0.1-1.2); Monocytes Percent Auto 5.5 % (2-11); Neutrophils Percent Auto 79.5 % (45-73); Platelet Count 213 X10*3/uL (160-400); Red Blood Count 4.52 X10*6/uL (4.60-5.80); Red Cell Distribution Width 13.3 % (11.0-16.0); White Blood Count 11.4 X10*3/uL (4.8-10.8)
--- NOTE | 2022-12-23 02:13 | MHC.EDTECH ---
PT UNCOOPERATIVE FOR EKG, IN A LOT OF PAIN AND CONFUSED. DR AND RN AWARE.
[2022-12-23 02:17] LABS: INTERNATIONAL NORM RATIO 1.2 (0.9-1.1); Prothrombin Time 13.4 SEC (10.0-13.1)
[2022-12-23 02:21] LABS: COVID-19 Test Negative (Negative); IDNOW Serial# 08D9AD1C
[2022-12-23 02:30] LABS: Troponin-I High Sensitivity 53.9 ng/L (<3.5-35.0)
[2022-12-23 02:31] LABS: Alanine Aminotransferase 13 U/L (0-40); Albumin Level 3.6 g/dL (3.5-5.0); Alkaline Phosphatase 119 U/L (39-117); Anion Gap 13 (12-20); Aspartate Amino Transferase 20 U/L (5-37); Bilirubin Direct 0.2 mg/dL (0.0-0.5); Bilirubin Total 0.6 mg/dL (0.0-1.0); Blood Urea Nitrogen 29 mg/dL (9-16); Calcium 9.2 mg/dL (8.4-10.2); Carbon Dioxide 25 mmol/L (22-29); Chloride 112 mmol/L (96-108); Estimated Glomerular Filt Rate 54; Glucose Random 123 mg/dL (60-115); Lipase 31 U/L (8-78); Potassium 4.3 mmol/L (3.3-5.1); Sodium 146 mmol/L (135-145); Total Protein 7.3 g/dL (6.5-8.0)
[2022-12-23] MEDS: Morphine Sulfate 2 MG/ML CARTRIDGE IVPUSH ×2 (02:54→11:55)
--- NOTE | 2022-12-23 03:42 | PC.NURSE ---
Pt BIBA from [facility] for a unwitnessed fall yesterday afternoon. Pt is moaning and gowning, not answering questions, Hx dementia. Pt lying on left side position, pillow placed between legs, IV line placed, blood work collected and sent to lab. Pt medicated per JUL.
--- NOTE | 2022-12-23 05:38 | PC.NURSE ---
16F Nugent cath placed, draining clear yellow urine, Pt tolerated well.
--- NOTE | 2022-12-23 05:45 | PM.IMHP ---
History of Present Illness Date of Service: 12/23/22 Chief Complaint: Fall This is a 87-year-old male with pertinent history of left temporal CVA, essential hypertension, mixed hyperlipidemia, PE/DVT on Eliquis, advanced dementia (mixed vascular and neurodegenerative), seizure disorder, gout who was sent to the emergency department after an unwitnessed fall. Unable to obtain history from the patient as he is poor historian. History obtained from ER provider. Patient fell around noon, it was not witnessed. X-ray was obtained which was concerning for hip fracture and he was sent to the ER. In the emergency department, patient is grimacing in pain. Nonverbal. Unable to obtain review of systems. In the ER, imaging with impacted fracture of right femoral neck. Review of Systems Review of Systems: Yes Unobtainable due to mental condition and Unobtainable due to mental status PMFSH Medical History Altered mental status Bradycardia COPD (chronic obstructive pulmonary disease) Dementia Dysphagia Gout History of pulmonary embolism Hyperlipidemia Hypertension Hyponatremia Kidney disease Metabolic encephalopathy Pneumonia Seizure Pertinent family history: Not significant due to age Social History Household Members: Other Housing: [facility] Do you presently have visiting nurse or other home services: No Unable to assess alcohol history related to: Unable to respond Patient Tobacco Use Status: Tobacco use Unknown Smoked in Last 30 Days: No Use of substances other than those prescribed or required for medical reasons: No Advance Directives: Yes Advance Directives on File: Yes Advance Directives Date on File: 12/03/20 service: Yes Current occupational status: retired Meds Allergies Allergy/AdvReac Type Severity Reaction Status Date / Time hydrochlorothiazide Allergy Unknown Verified 12/23/22 01:49 niacin Allergy Unknown Verified 12/23/22 01:49 nifedipine Allergy Unknown Verified 12/23/22 01:49 Home Medications Medication Instructions Recorded Confirmed Last Taken Type acetaminophen 325 mg tablet 650 mg PO Q6H PRN Pain 12/03/20 12/23/22 Unknown History amlodipine 5 mg tablet 5 mg PO DAILY 12/03/20 12/23/22 Unknown History atorvastatin 40 mg tablet (Lipitor) 40 mg PO BEDTIME 12/03/20 12/23/22 Unknown History bisacodyl 10 mg rectal suppository 10 mg [place] DAILY PRN Constipation 12/03/20 12/23/22 Unknown History docusate sodium 100 mg capsule 200 mg PO DAILY 12/03/20 12/23/22 Unknown History (Colace) lisinopril 5 mg tablet 5 mg PO DAILY 12/03/20 12/23/22 Unknown History magnesium hydroxide 400 mg/5 mL 30 ml PO DAILY PRN Constipation 12/03/20 12/23/22 Unknown History oral suspension (Milk of Magnesia) metoprolol tartrate 25 mg tablet 12.5 mg PO BID 12/03/20 12/23/22 Unknown History oxcarbazepine 300 mg tablet 300 mg PO BID 12/03/20 12/23/22 Unknown History sodium phosphates 19 gram-7 118 ml [place] DAILY PRN Constipation 12/03/20 12/23/22 Unknown History gram/118 mL enema (Fleet Enema) allopurinol 100 mg tablet 2 tab PO DAILY 06/01/21 12/23/22 Unknown History apixaban 5 mg tablet (Eliquis) 1 tab PO BID 06/01/21 12/23/22 Unknown History amlodipine 2.5 mg tablet 2.5 mg PO DAILY 11/22/22 12/23/22 Unknown History calcium carbonate 600 mg-vitamin 1 cap PO DAILY 11/22/22 12/23/22 Unknown History D3 5 mcg (200 unit) capsule (Calcium 600 + D(3)) levetiracetam 100 mg/mL oral 500 mg PO BID 11/22/22 12/23/22 Unknown History solution multivitamin 1 tab PO DAILY 11/22/22 12/23/22 Unknown History Physical Exam Vital Signs and Narrative: Vital Signs: Last Vital Signs Temp 99.8 F 12/23/22 01:35 Pulse 90 12/23/22 04:09 Resp 12 12/23/22 04:09 BP 133/67 12/23/22 04:09 Pulse Ox 90 L 12/23/22 04:09 O2 Del Method Room Air 12/23/22 04:09 BMI result Body Mass Index 22.5 Elderly male lying in bed in no distress Neck supple, no JVD Regular rate and rhythm, S1-S2 heard Decreased breath sounds at bases Abdomen soft nontender, no guarding, no rigidity Patient is awake, alert and grimacing in pain, nonverbal, unable to assess orientation, not following commands Results Labs 12/23/22 01:58 12/23/22 01:58 Labs: Laboratory Results - last 24 hr 12/23/22 12/23/22 12/23/22 01:58 01:58 01:58 MCV Cancelled MCH Cancelled MCHC Cancelled RDW Cancelled Plt Count Cancelled MPV Cancelled Immature Gran % (Auto) Cancelled Neut % (Auto) Cancelled Lymph % (Auto) Cancelled [place] % (Auto) Cancelled Eos % (Auto) Cancelled Baso % (Auto) Cancelled Lymph # (Auto) Cancelled [place] # (Auto) Cancelled Eos # (Auto) Cancelled Baso # (Auto) Cancelled Abs Immat Gran (auto) Cancelled Absolute Neuts (auto) Cancelled Absolute Nucleated RBC Cancelled Nucleated RBC % (auto) Cancelled PT 13.4 H INR 1.2 H Anion Gap 13 Estim Creat Clear Calc 38.0 Estimated GFR 54 Random Glucose 123 H Calcium 9.2 Total Bilirubin 0.6 Direct Bilirubin 0.2 AST 20 ALT 13 Alkaline Phosphatase 119 H Troponin I High Sens Total Protein 7.3 Albumin 3.6 Lipase 31 COVID-19 (REZA) COVID-[employer] Com Blood Type Antibody Screen 12/23/22 12/23/22 12/23/22 01:58 01:58 01:58 MCV 92.0 MCH 31.0 MCHC 33.7 RDW 13.3 Plt Count 213 MPV 9.9 Immature Gran % (Auto) 0.4 Neut % (Auto) 79.5 H Lymph % (Auto) 12.4 L [place] % (Auto) 5.5 Eos % (Auto) 1.9 Baso % (Auto) 0.3 Lymph # (Auto) 1.4 [place] # (Auto) 0.6 Eos # (Auto) 0.2 Baso # (Auto) 0.0 Abs Immat Gran (auto) 0.04 H Absolute Neuts (auto) 9.0 H Absolute Nucleated RBC 0.000 Nucleated RBC % (auto) 0.0 PT INR Anion Gap Estim Creat Clear Calc Estimated GFR Random Glucose Calcium Total Bilirubin Direct Bilirubin AST ALT Alkaline Phosphatase Troponin I High Sens 53.9 H D Total Protein Albumin Lipase COVID-19 (REZA) Negative COVID-[employer] Clin Com See Note Blood Type Antibody Screen 12/23/22 02:01 MCV MCH MCHC RDW Plt Count MPV Immature Gran % (Auto) Neut % (Auto) Lymph % (Auto) [place] % (Auto) Eos % (Auto) Baso % (Auto) Lymph # (Auto) [place] # (Auto) Eos # (Auto) Baso # (Auto) Abs Immat Gran (auto) Absolute Neuts (auto) Absolute Nucleated RBC Nucleated RBC % (auto) PT INR Anion Gap Estim Creat Clear Calc Estimated GFR Random Glucose Calcium Total Bilirubin Direct Bilirubin AST ALT Alkaline Phosphatase Troponin I High Sens Total Protein Albumin Lipase COVID-19 (REZA) COVID-19 Clin Com Blood Type B Positive Antibody Screen NEGATIVE Imaging Radiologist's Impressions: Impressions Head CT 12/23/22 03:01 IMPRESSION: 1. No acute intracranial hemorrhage. 2. Hypoattenuation throughout the right posterior cerebral artery territory appears somewhat more extensive than on 11/22/2022, suspicious for sequelae of evolving infarct. 3. Moderate to severe chronic small vessel ischemic disease and volume loss. Chest X-Ray 12/23/22 04:04 IMPRESSION: Significantly limited examination due to patient positioning. Right lung appears well-aerated, and the left lung is not adequately assessed. Hip/Pelvis X-Ray 12/23/22 04:05 IMPRESSION: Significantly limited evaluation due to positioning. Mild contour deformity of the right femoral neck, concerning for acute fracture in the setting of trauma. CT may provide more definitive evaluation. Hip CT 12/23/22 05:07 IMPRESSION: Impacted fracture of the right femoral neck. Assessment and Plan (1) Fracture of femoral neck, right: Status: Acute Plan This is a 87-year-old male with pertinent history of left temporal CVA, essential hypertension, mixed hyperlipidemia, PE/DVT on Eliquis, advanced dementia (mixed vascular and neurodegenerative), seizure disorder, gout who was sent to the emergency department after an unwitnessed fall. #. Right femoral neck fracture due to unwitnessed fall. Will admit patient and initiate analgesics p.r.n. for symptomatic control. Consulting orthopedic surgery, appreciate assistance #. Essential hypertension. Continue home antihypertensives #. Seizure disorder. Continue home antiepileptics #. Mixed hyperlipidemia on statin #. DVT/PE. Hold Eliquis until surgical evaluation #. Elevated troponin. Likely in the setting of increased demand Med rec pending DNR/DNI DVT prophylaxis: Hold anticoagulation until surgical evaluation Admit as inpatient and will require two night minimum hospital stay for for evaluation and treatment of right femoral neck fracture. Specialist consult pending Time Spent With Patient Time: Total time managing care of this patient today ____ minutes. Quality Stroke Does the patient have a stroke diagnosis?: No VTE Prior VTE?: No VTE Risk Level:: Medical - moderate - high VTE Device Contraindication: Treatment Not Indicated VTE Drug Contraindication: Treatment Not Indicated
[2022-12-23 05:46] LABS: Appearance Urine Cloudy; Color Urine Yellow; Glucose Urine UA Negative (Negative); Leukocyte Esterase Urine Small (1+) (Negative); Nitrite Urine Negative (Negative); Specific Gravity - Urine 1.025 (1.005-1.025); UMIC TRIGGER UACC YES; Urine Blood Negative (Negative); Urine Ketones Trace mg/dL (Negative); Urine Protein 300 (3+) mg/dL (Neg-Trace)
[2022-12-23 05:54] LABS: Bacteria Urine 4+ (None Seen); Hyaline Casts Urine 0-2 /LPF (0-2); RBC Urine 0-2 /HPF (0-2); Squamous Epithelial Cell Urine 0-2 /HPF (0-2); UACC Culture Trigger YES; WBC Urine >50 /HPF (0-5)
[2022-12-23] MEDS: cefTRIAXone sodium 1 GM in 0.9 % Sodium Chloride 50 ML IV (06:51)
[2022-12-23 07:23] LABS: Troponin-I High Sensitivity 98.2 ng/L (<3.5-35.0)
--- NOTE | 2022-12-23 07:53 | PC.NURSE ---
Addendum entered by Deja Eaton RN 12/23/22 07:54: marrero outputting 300 ml of yellow urine Original Note: patient sleepign in bed, resp equal and unlabored. patient opens eyes when you speak to him, no signs of distress. Marrero outputtim
--- NOTE | 2022-12-23 08:14 | PM.CNOR ---
History of Present Illness HPI Consult date: 12/23/22 Chief complaint: Fall Narrative: This is a 87-year-old male with pertinent history of left temporal CVA, essential hypertension, mixed hyperlipidemia, PE/DVT on Eliquis, advanced dementia (mixed vascular and neurodegenerative), seizure disorder, gout who was sent to the emergency department after an unwitnessed fall and admitted to the medical service due to a right femoral neck fracture. Unable to obtain history from the patient as he is poor historian and non verbal.? Orthopedics was consulted for surgical planning I was able to speak with his son Hermilo, who mentioned the patient does ambulate with assitance. Due to his dementia he does not follow cues and may act out. He has had several hospital admissions and after his most recent ED visit, he was discharged back to [facility] with the plan for comfort measures. Review of Systems Review of Systems: per [facility] Past Medical History Medical History Altered mental status Bradycardia COPD (chronic obstructive pulmonary disease) Dementia Dysphagia Gout History of pulmonary embolism Hyperlipidemia Hypertension Hyponatremia Kidney disease Metabolic encephalopathy Pneumonia Seizure Social History Social History Household Members: Other Housing: Fdc Do you presently have visiting nurse or other home services: No Unable to assess alcohol history related to: Unable to respond Patient Tobacco Use Status: Tobacco use Unknown Smoked in Last 30 Days: No Use of substances other than those prescribed or required for medical reasons: No Advance Directives: Yes Advance Directives on File: Yes Advance Directives Date on File: 12/03/20 service: Yes Current occupational status: retired Meds Allergies Allergy/AdvReac Type Severity Reaction Status Date / Time hydrochlorothiazide Allergy Unknown Verified 12/23/22 01:49 niacin Allergy Unknown Verified 12/23/22 01:49 nifedipine Allergy Unknown Verified 12/23/22 01:49 Active Medications: Current Medications Acetaminophen (Acetaminophen 325 Mg Tablet) 650 mg PO Q6H PRN PRN Reason: Pain, Mild (Pain Scale 1-3) Allopurinol (Allopurinol 100 Mg Tablet) 200 mg PO DAILY [facility] Amlodipine Besylate (Amlodipine Besylate 5 Mg Tablet) 5 mg PO DAILY [facility]; Protocol Amlodipine Besylate (Amlodipine Besylate 2.5 Mg Tablet) 2.5 mg PO DAILY [facility]; Protocol Atorvastatin Calcium (Atorvastatin Calcium 40 Mg Tablet) 40 mg PO BEDTIME [facility] Bisacodyl (Bisacodyl 10 Mg Supp.Rect) 10 mg [place] DAILY PRN PRN Reason: Constipation Enoxaparin Sodium (Enoxaparin Sodium 60 Mg/0.6 Ml Syringe) 60 mg 1 mg/kg (60 mg) SUBCUT Q12H [facility] Ceftriaxone Sodium 1 gm/ (Sodium Chloride) 50 mls @ 100 mls/hr IV Q24H [facility] Last Infusion: 12/23/22 08:06 Dose: Infused Lisinopril (Lisinopril 5 Mg Tablet) 5 mg PO DAILY [facility]; Protocol Melatonin (Melatonin 3 Mg Tablet) 6 mg PO BEDTIME PRN PRN Reason: Insomnia Metoprolol Tartrate (Metoprolol Tartrate 12.5 Mg Halftab) 12.5 mg PO BID [facility]; Protocol Morphine Sulfate (Morphine Sulfate 2 Mg/Ml Cartridge) 2 mg IVPUSH Q4H PRN; Protocol PRN Reason: Pain, Severe (Pain Scale 7-10) Multivitamins/Vitamin C (Multivitamin Tablet) 1 tab PO DAILY [facility] Non-Formulary Medication (Calcium Carbonate-Vitamin D3 [Calcium 600 + D(3)]) 1 cap PO DAILY [facility] Non-Formulary Medication (Levetiracetam) 500 mg PO BID [facility] Ondansetron HCl (Ondansetron Hcl 4 Mg/2 Ml Vial) 4 mg IVPUSH Q8H PRN PRN Reason: Nausea and Vomiting Oxcarbazepine (Oxcarbazepine 300 Mg Tablet) 300 mg PO BID [facility] Pharmacy Consult (Consult Rx Perform Med Rec) 1 each MISCELLANE ONCE PRN PRN Reason: Consult order Sodium Chloride (0.9 % Sodium Chloride Flush 3 Ml Syringe) 3 ml IVFLUSH QSHIFT [facility] Home Medications Medication Instructions Recorded Confirmed Last Taken Type acetaminophen 325 mg tablet 650 mg PO Q6H PRN Fever Or Pain 12/03/20 12/23/22 Unknown History amlodipine 5 mg tablet 5 mg PO DAILY 12/03/20 12/23/22 Unknown History atorvastatin 40 mg tablet (Lipitor) 40 mg PO BEDTIME 12/03/20 12/23/22 Unknown History bisacodyl 10 mg rectal suppository 10 mg AR DAILY PRN Constipation 12/03/20 12/23/22 Unknown History docusate sodium 100 mg capsule 200 mg PO DAILY 12/03/20 12/23/22 Unknown History (Colace) lisinopril 5 mg tablet 5 mg PO DAILY 12/03/20 12/23/22 Unknown History magnesium hydroxide 400 mg/5 mL 30 ml PO DAILY PRN Constipation 12/03/20 12/23/22 Unknown History oral suspension (Milk of Magnesia) metoprolol tartrate 25 mg tablet 12.5 mg PO BID 12/03/20 12/23/22 Unknown History oxcarbazepine 300 mg tablet 300 mg PO BID 12/03/20 12/23/22 Unknown History sodium phosphates 19 gram-7 118 ml AR DAILY PRN Constipation 12/03/20 12/23/22 Unknown History gram/118 mL enema (Fleet Enema) allopurinol 100 mg tablet 2 tab PO DAILY 06/01/21 12/23/22 Unknown History apixaban 5 mg tablet (Eliquis) 1 tab PO BID 06/01/21 12/23/22 Unknown History amlodipine 2.5 mg tablet 2.5 mg PO DAILY 11/22/22 12/23/22 Unknown History levetiracetam 100 mg/mL oral 500 mg PO BID 11/22/22 12/23/22 Unknown History solution multivitamin 1 tab PO DAILY 11/22/22 12/23/22 Unknown History calcium carbonate 600 mg-vitamin 1 tab PO DAILY 12/23/22 12/23/22 Unknown History D3 10 mcg (400 unit) tablet (Calcium 600 + D(3)) Physical Exam Vital Signs: Vital Signs: Last Vital Signs Temp 99.8 F 12/23/22 01:35 Pulse 81 12/23/22 06:43 Resp 16 12/23/22 06:43 BP 199/95 H 12/23/22 06:43 Pulse Ox 93 12/23/22 06:43 O2 Del Method Room Air 12/23/22 06:43 BMI result Body Mass Index 22.5 Const: General: cooperative, healthy appearing, comfortable, no acute distress, well developed and alert Orientation/consciousness: patient oriented x3 HEENT: Head: Yes normal to inspection, Yes normocephalic and Yes atraumatic Eyes: General: appearance normal, both eyes and all related structures Neck: Neck: Yes normal visual inspection and Yes no lymphadenopathy Resp: Effort & Inspection: normal respiratory effort and able to speak in complete sentences Cardio: Rate: regular rate Peripheral pulses: Peripheral pulses 2+ throughout GI: Inspection: Yes normal to inspection Palpation (GI): Soft to palpation Skin: General skin exam: no rashes or lesions noted Neuro: General: patient oriented x3 Extrem: Other: Right hip in the flexed position no abraisons. Pain with log roll. NVI. Psych: Appearance: grossly normal Mental Status: mental status grossly normal Results Labs 12/23/22 01:58 12/23/22 01:58 Labs: Abnormal lab results 12/23/22 12/23/22 12/23/22 Range/Units 01:58 01:58 01:58 WBC (4.8-10.8) X10*3/uL RBC (4.60-5.80) X10*6/uL Hct (42.0-52.0) % Neut % (Auto) (45-73) % Lymph % (Auto) (20-40) % Abs Immat Gran (auto) (0.00-0.03) X10*3/uL Absolute Neuts (auto) (2.0-8.3) x10*3/uL PT 13.4 H (10.0-13.1) SEC INR 1.2 H (0.9-1.1) Sodium 146 H (135-145) mmol/L Chloride 112 H (96-108) mmol/L BUN 29 H (9-16) mg/dL Random Glucose 123 H (60-115) mg/dL Alkaline Phosphatase 119 H (39-117) U/L Troponin I High Sens 53.9 H D (<3.5-35.0) ng/L Urine Protein (Neg-Trace) mg/dL Ur Leukocyte Esterase (Negative) Urine WBC (0-5) /HPF 12/23/22 12/23/22 12/23/22 Range/Units 01:58 05:40 06:48 WBC 11.4 H (4.8-10.8) X10*3/uL RBC 4.52 L (4.60-5.80) X10*6/uL Hct 41.6 L (42.0-52.0) % Neut % (Auto) 79.5 H (45-73) % Lymph % (Auto) 12.4 L (20-40) % Abs Immat Gran (auto) 0.04 H (0.00-0.03) X10*3/uL Absolute Neuts (auto) 9.0 H (2.0-8.3) x10*3/uL PT (10.0-13.1) SEC INR (0.9-1.1) Sodium (135-145) mmol/L Chloride (96-108) mmol/L BUN (9-16) mg/dL Random Glucose (60-115) mg/dL Alkaline Phosphatase (39-117) U/L Troponin I High Sens 98.2 H D (<3.5-35.0) ng/L Urine Protein 300 (3+) H (Neg-Trace) mg/dL Ur Leukocyte Esterase Small (1+) H (Negative) Urine WBC >50 H (0-5) /HPF H & H 12/23/22 12/23/22 Range/Units 01:58 01:58 Hgb Cancelled 14.0 Hct Cancelled 41.6 L Coagulation 12/23/22 Range/Units 01:58 INR 1.2 H (0.9-1.1) All other labs normal. Diagnostic results Hip x-ray: image reviewed (right femoral neck fx ) Assessment and Plan (1) Closed fracture of right hip: Status: Acute Plan I discussed the case with Dr Lamb and explained the extent of the injury to the patient6's son, Hermilo and the patients and options available which include surgical intervention. I explained the procedure in detail along with the length of recovery and rehab course. I explained the risk, benefits and alternatives. Risk including, but not limited to infection, blood clots, bleeding, non union or malunion and nerve/tissue damage to surrounding areas, dislocation and periprosthetic fracture along with a decline in health. I answered all their questions and with their understanding they have consented to move forward with Operative Fixation of the right hip. The patient will need to be off Eliquis after 72 hrs. The patient will be T&S, med clearance obtained and NPO after midnight for . Time Spent With Patient Time: Total time managing care of this patient today ____ minutes. Procedures Date of Service Date of Service: 12/23/22
--- NOTE | 2022-12-23 08:28 | PHA.MEDREC ---
Pharmacy Consult ? Medication Reconciliation Pharmacy has completed the medication reconciliation. reviewed med rec done by nursing with med list from [facility].
--- NOTE | 2022-12-23 08:51 | P.PNIM_ITS ---
Subjective Subjective Date of Service: 12/23/22 Interval History: not talking Physical Exam Vital Signs: Vital Signs: Last Vital Signs Temp 99.8 F 12/23/22 01:35 Pulse 81 12/23/22 06:43 Resp 16 12/23/22 06:43 BP 199/95 H 12/23/22 06:43 Pulse Ox 93 12/23/22 06:43 O2 Del Method Room Air 12/23/22 06:43 BMI result Body Mass Index 22.5 87M PMH left temporal CVA, htn, hld, pe/dvt, advanced dementia, epilepsy, gout presented with fall complciated by right hip fracture fall complicated by right hip fracture holding eliquis plan for OR 12/24/22 (due to eliquis) benefits of surgery outweigh risks, would pursue without further work up htn amlodipnie, lisinopril epilepsy keppra hld statin history of DVT/Pe bridge with lovenox, restart eliquis after surgery mild elevation in troponin likely strain in possible undiagnosed underlying CAD doubt ACS DNR/DNI reason for continued hospitalization:surgery tomorrow Objective Data Active Medications Acetaminophen (Acetaminophen 325 Mg Tablet) 650 mg PO Q6H PRN PRN Reason: Pain, Mild (Pain Scale 1-3) Allopurinol (Allopurinol 100 Mg Tablet) 200 mg PO DAILY [facility] Amlodipine Besylate (Amlodipine Besylate 2.5 Mg Tablet) 7.5 mg PO DAILY [facility]; Protocol Atorvastatin Calcium (Atorvastatin Calcium 40 Mg Tablet) 40 mg PO BEDTIME [facility] Bisacodyl (Bisacodyl 10 Mg Supp.Rect) 10 mg [place] DAILY PRN PRN Reason: Constipation Calcium Carbonate/Cholecalciferol (Calcium + Vitamin D 250 Mg Tablet) 500 mg PO DAILY [facility] Enoxaparin Sodium (Enoxaparin Sodium 60 Mg/0.6 Ml Syringe) 60 mg 1 mg/kg (60 mg) SUBCUT Q12H [facility] Stop: 12/24/22 04:00 Ceftriaxone Sodium 1 gm/ (Sodium Chloride) 50 mls @ 100 mls/hr IV Q24H [facility] Last Infusion: 12/23/22 08:06 Dose: 0 mls/hr Documented By: MICHAEL Lisinopril (Lisinopril 5 Mg Tablet) 5 mg PO DAILY [facility]; Protocol Melatonin (Melatonin 3 Mg Tablet) 6 mg PO BEDTIME PRN PRN Reason: Insomnia Metoprolol Tartrate (Metoprolol Tartrate 12.5 Mg Halftab) 12.5 mg PO BID [facility]; Protocol Morphine Sulfate (Morphine Sulfate 2 Mg/Ml Cartridge) 2 mg IVPUSH Q4H [facility]; Protocol PRN Reason: Pain, Severe (Pain Scale 7-10) Multivitamins/Vitamin C (Multivitamin Tablet) 1 tab PO DAILY [facility] Non-Formulary Medication (Levetiracetam) 500 mg PO BID [facility] Ondansetron HCl (Ondansetron Hcl 4 Mg/2 Ml Vial) 4 mg IVPUSH Q8H PRN PRN Reason: Nausea and Vomiting Oxcarbazepine (Oxcarbazepine 300 Mg Tablet) 300 mg PO BID [facility] Pharmacy Consult (Consult Rx Perform Med Rec) 1 each MISCELLANE ONCE PRN PRN Reason: Consult order Sodium Chloride (0.9 % Sodium Chloride Flush 3 Ml Syringe) 3 ml IVFLUSH QSHIFT [facility] Labs 12/23/22 01:58 12/23/22 01:58 Labs: Laboratory Results - last 24 hr 12/23/22 12/23/22 12/23/22 01:58 01:58 01:58 MCV Cancelled MCH Cancelled MCHC Cancelled RDW Cancelled Plt Count Cancelled MPV Cancelled Immature Gran % (Auto) Cancelled Neut % (Auto) Cancelled Lymph % (Auto) Cancelled [place] % (Auto) Cancelled Eos % (Auto) Cancelled Baso % (Auto) Cancelled Lymph # (Auto) Cancelled [place] # (Auto) Cancelled Eos # (Auto) Cancelled Baso # (Auto) Cancelled Abs Immat Gran (auto) Cancelled Absolute Neuts (auto) Cancelled Absolute Nucleated RBC Cancelled Nucleated RBC % (auto) Cancelled PT 13.4 H INR 1.2 H Anion Gap 13 Estim Creat Clear Calc 38.0 Estimated GFR 54 Random Glucose 123 H Calcium 9.2 Total Bilirubin 0.6 Direct Bilirubin 0.2 AST 20 ALT 13 Alkaline Phosphatase 119 H Troponin I High Sens Total Protein 7.3 Albumin 3.6 Lipase 31 Urine Color Urine Appearance Urine pH Ur Specific [place] Urine Protein Urine Glucose (UA) Urine Ketones Urine Blood Urine Nitrite Ur Leukocyte Esterase Urine RBC Urine WBC Ur Squamous Epith Cells Urine Bacteria Hyaline Casts COVID-19 ([facility]) COVID-19 Clin Com Blood Type Antibody Screen 12/23/22 12/23/22 12/23/22 01:58 01:58 01:58 MCV 92.0 MCH 31.0 MCHC 33.7 RDW 13.3 Plt Count 213 MPV 9.9 Immature Gran % (Auto) 0.4 Neut % (Auto) 79.5 H Lymph % (Auto) 12.4 L [place] % (Auto) 5.5 Eos % (Auto) 1.9 Baso % (Auto) 0.3 Lymph # (Auto) 1.4 [place] # (Auto) 0.6 Eos # (Auto) 0.2 Baso # (Auto) 0.0 Abs Immat Gran (auto) 0.04 H Absolute Neuts (auto) 9.0 H Absolute Nucleated RBC 0.000 Nucleated RBC % (auto) 0.0 PT INR Anion Gap Estim Creat Clear Calc Estimated GFR Random Glucose Calcium Total Bilirubin Direct Bilirubin AST ALT Alkaline Phosphatase Troponin I High Sens 53.9 H D Total Protein Albumin Lipase Urine Color Urine Appearance Urine pH Ur Specific [place] Urine Protein Urine Glucose (UA) Urine Ketones Urine Blood Urine Nitrite Ur Leukocyte Esterase Urine RBC Urine WBC Ur Squamous Epith Cells Urine Bacteria Hyaline Casts COVID-19 (REZA) Negative COVID-19 Clin Com See Note Blood Type Antibody Screen 12/23/22 12/23/22 12/23/22 02:01 05:40 06:48 MCV MCH MCHC RDW Plt Count MPV Immature Gran % (Auto) Neut % (Auto) Lymph % (Auto) [place] % (Auto) Eos % (Auto) Baso % (Auto) Lymph # (Auto) [place] # (Auto) Eos # (Auto) Baso # (Auto) Abs Immat Gran (auto) Absolute Neuts (auto) Absolute Nucleated RBC Nucleated RBC % (auto) PT INR Anion Gap Estim Creat Clear Calc Estimated GFR Random Glucose Calcium Total Bilirubin Direct Bilirubin AST ALT Alkaline Phosphatase Troponin I High Sens 98.2 H D Total Protein Albumin Lipase Urine Color Yellow Urine Appearance Cloudy Urine pH 7.0 Ur Specific [place] 1.025 Urine Protein 300 (3+) H Urine Glucose (UA) Negative Urine Ketones Trace Urine Blood Negative Urine Nitrite Negative Ur Leukocyte Esterase Small (1+) H Urine RBC 0-2 Urine WBC >50 H Ur Squamous Epith Cells 0-2 Urine Bacteria 4+ Hyaline Casts 0-2 COVID-19 ([facility]) COVID-19 Clin Com Blood Type B Positive Antibody Screen NEGATIVE Assessment and Plan Time Spent With Patient Time: Total time managing care of this patient today ____ minutes. Quality Stroke Does the patient have a stroke diagnosis?: No VTE Prior VTE?: Yes VTE Risk Level:: Medical - moderate - high VTE Device Contraindication: Treatment Not Indicated VTE Drug Contraindication: N/A - Med Ordered
[2022-12-23] MEDS: allopurinoL 100 MG TABLET 200 MG PO (10:15)
[2022-12-23] MEDS: amLODIPine Besylate 2.5 MG TABLET 7.5 MG PO (10:18)
[2022-12-23] MEDS: lisinopriL 5 MG TABLET PO (10:21)
[2022-12-23] MEDS: OXcarbazepine 300 MG TABLET PO ×2 (10:22→22:10)
[2022-12-23] MEDS: Metoprolol Tartrate 12.5 MG HALFTAB PO ×2 (10:23→22:10)
[2022-12-23] MEDS: Multivitamin TABLET 1 TAB PO (10:25)
[2022-12-23] MEDS: Calcium + Vitamin D 250 MG TABLET 500 MG PO (10:26)
--- NOTE | 2022-12-23 10:35 | PC.NURSE ---
sat patient up in bed, patient took morning medications with apple sauce, patient finished cup of apple sauce. patient resp equal and unlabored, no signs of distress.
[2022-12-23] MEDS: Enoxaparin Sodium 60 MG/0.6 ML SYRINGE SUBCUT (10:40)
[2022-12-23] MEDS: levETIRAcetam Oral Soln 500 MG/5 ML PO ×2 (10:40→22:10)
[2022-12-23] MEDS: ondansetron HCL 4 MG/2 ML VIAL IVPUSH (11:57)
--- NOTE | 2022-12-23 12:07 | PC.NURSE ---
patient medicated with prn pain medication, repositioned and boosted in bed. patient resp equal and unlabored, marrero with good output, yellow urine 450 ml. pt bilat pedal pulses strong. no signs of distress.
--- NOTE | 2022-12-23 12:27 | MHC.CM.PN ---
Attempted to meet with patient in regards to discharge planning. Patient has advanced dementia. Spoke with patient's son/HCP, Osman via telephone at [phone]. 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 Anticipate patient will return to facility via BLS when medically stable. Copy of HCP verified to be on file. Patient received 5 Pfizer vaccines. IMM epxlained and sent to Osman via certified mail. Continue to monitor for d/c needs.
--- NOTE | 2022-12-23 14:59 | PC.NURSE ---
md paula howell notified o2 sat 88-90% and pt not conversational or alert. no resp distress. md howell states baseline. hx dementia/copd. boosted/repositioned/new linens. no interventions ordered.
--- NOTE | 2022-12-23 15:43 | PC.NURSE ---
bed alarm on. repositioned/boosted. o2 sat remains approx 90% but no distress and airway intact. opens eyes and squeezes hands- not following directions/talking per baseline for pt at this time- md howell remains aware
[2022-12-23] MEDS: Acetaminophen 325 MG TABLET 650 MG PO (18:21)
--- NOTE | 2022-12-23 18:22 | PC.NURSE ---
pt eating meal with staff assistance. upright. no distres noted. tylenol for nonverbal score pain generalized 1. o2 sat 94%
--- NOTE | 2022-12-23 19:39 | PC.NURSE ---
patient report was given to the nurse CRISTINE patient will be transported up with safety maintained
--- NOTE | 2022-12-23 21:08 | PC.NURSE ---
patient in bed with eyes closed patient appears to be in no distress at this time patient vitals are stable patient is waiting to be brought up to the admitted floor safety will be maintained
[2022-12-23] MEDS: Atorvastatin Calcium 40 MG TABLET PO (22:10)
[2022-12-23] MEDS: 0.9 % Sodium Chloride Flush 3 ML SYRINGE IVFLUSH (22:27)
[2022-12-24 04:00] VITALS: BP 145/70; PULSE 85; RESP 17; TEMP 36.6; O2SAT 93
[2022-12-24] MEDS: Morphine Sulfate 2 MG/ML CARTRIDGE IVPUSH ×4 (05:07→20:48)
[2022-12-24] MEDS: cefTRIAXone sodium 1 GM in 0.9 % Sodium Chloride 50 ML IV (06:09)
[2022-12-24 06:26] LABS: MANUAL DIFF FLAG NO
[2022-12-24 06:36] LABS: Basophils Percent Auto 0.3 % (0-2); Eosinophils Absolute Auto 0.2 X10*3/uL (0.0-0.4); Hematocrit 42.2 % (42.0-52.0); Hemoglobin 13.8 g/dl (14.0-18.0); Imm Gran Abs Auto 0.05 X10*3/uL (0.00-0.03); Imm Gran Pct Auto 0.4 % (0.0-0.4); Lymphocytes Absolute Auto 1.1 X10*3/uL (1.2-4.9); Lymphocytes Percent Auto 9.8 % (20-40); Mean Corpuscular HGB Conc 32.7 g/dl (31.0-36.0); Mean Corpuscular Volume 94.8 fL (80.0-98.0); Mean Platelet Volume 10.1 fL (9.4-12.4); Monocytes Absolute Auto 0.6 X10*3/uL (0.1-1.2); Monocytes Percent Auto 5.1 % (2-11); Neutrophils Absolute Auto 9.6 x10*3/uL (2.0-8.3); Neutrophils Percent Auto 82.4 % (45-73); Platelet Count 197 X10*3/uL (160-400); Red Blood Count 4.45 X10*6/uL (4.60-5.80); Red Cell Distribution Width 13.4 % (11.0-16.0); White Blood Count 11.7 X10*3/uL (4.8-10.8)
[2022-12-24 06:48] LABS: Anion Gap 11 (12-20); Blood Urea Nitrogen 30 mg/dL (9-16); Calcium 9.6 mg/dL (8.4-10.2); Carbon Dioxide 29 mmol/L (22-29); Chloride 109 mmol/L (96-108); Creatinine Clr Calc Pharmacy 32.2; Estimated Glomerular Filt Rate 44; Glucose Random 129 mg/dL (60-115); Potassium 4.1 mmol/L (3.3-5.1); Sodium 145 mmol/L (135-145)
[2022-12-24 07:41] VITALS: BP 169/85; PULSE 97; RESP 18; TEMP 36.2; O2SAT 93
--- NOTE | 2022-12-24 08:41 | HO.PM.IMPN ---
Subjective Subjective Date of Service: 12/24/22 Interval History: nonverbal Physical Exam Vital Signs: Vital Signs: Last Vital Signs Temp 97.2 F 12/24/22 07:41 Pulse 97 12/24/22 07:41 Resp 18 12/24/22 07:41 BP 169/85 H 12/24/22 07:41 Pulse Ox 93 12/24/22 07:41 O2 Del Method Room Air 12/24/22 07:41 BMI result Body Mass Index 22.5 lethargic, frail, nonverbal Objective Data Active Medications Acetaminophen (Acetaminophen 325 Mg Tablet) 650 mg PO Q6H PRN PRN Reason: Pain, Mild (Pain Scale 1-3) Last Admin: 12/23/22 18:21 Dose: 650 mg Documented By: RAIN Allopurinol (Allopurinol 100 Mg Tablet) 200 mg PO DAILY [facility] Last Admin: 12/23/22 10:15 Dose: 200 mg Documented By: MICHAEL Amlodipine Besylate (Amlodipine Besylate 2.5 Mg Tablet) 7.5 mg PO DAILY [facility]; Protocol Last Admin: 12/23/22 10:18 Dose: 7.5 mg Documented By: MICHAEL Atorvastatin Calcium (Atorvastatin Calcium 40 Mg Tablet) 40 mg PO BEDTIME [facility] Last Admin: 12/23/22 22:10 Dose: 40 mg Documented By: ROSA Bisacodyl (Bisacodyl 10 Mg Supp.Rect) 10 mg NE DAILY PRN PRN Reason: Constipation Calcium Carbonate/Cholecalciferol (Calcium + Vitamin D 250 Mg Tablet) 500 mg PO DAILY [facility] Last Admin: 12/23/22 10:26 Dose: 500 mg Documented By: MICHAEL Ceftriaxone Sodium 1 gm/ (Sodium Chloride) 50 mls @ 100 mls/hr IV Q24H [facility] Last Infusion: 12/24/22 06:44 Dose: 0 mls/hr Documented By: ROSA Cefazolin Sodium/Dextrose (Ancef) 2 gm in 50 mls @ 100 mls/hr IV PREOP ONE Stop: 12/25/22 13:41 Levetiracetam (Levetiracetam Oral Soln 500 Mg/5 Ml) 500 mg PO BID [facility] Last Admin: 12/23/22 22:10 Dose: 500 mg Documented By: ROSA Lisinopril (Lisinopril 5 Mg Tablet) 5 mg PO DAILY [facility]; Protocol Last Admin: 12/23/22 10:21 Dose: 5 mg Documented By: MICHAEL Melatonin (Melatonin 3 Mg Tablet) 6 mg PO BEDTIME PRN PRN Reason: Insomnia Metoprolol Tartrate (Metoprolol Tartrate 12.5 Mg Halftab) 12.5 mg PO BID [facility]; Protocol Last Admin: 12/23/22 22:10 Dose: 12.5 mg Documented By: ROSA Morphine Sulfate (Morphine Sulfate 2 Mg/Ml Cartridge) 2 mg IVPUSH Q4H PRN; Protocol PRN Reason: Pain, Severe (Pain Scale 7-10) Last Admin: 12/24/22 05:07 Dose: 2 mg Documented By: ROSA Multivitamins/Vitamin C (Multivitamin Tablet) 1 tab PO DAILY [facility] Last Admin: 12/23/22 10:25 Dose: 1 tab Documented By: MICHAEL Ondansetron HCl (Ondansetron Hcl 4 Mg/2 Ml Vial) 4 mg IVPUSH Q8H PRN PRN Reason: Nausea and Vomiting Last Admin: 12/23/22 11:57 Dose: 4 mg Documented By: MICHAEL Oxcarbazepine (Oxcarbazepine 300 Mg Tablet) 300 mg PO BID [facility] Last Admin: 12/23/22 22:10 Dose: 300 mg Documented By: ROSA Pharmacy Consult (Consult Rx Perform Med Rec) 1 each MISCELLANE ONCE PRN PRN Reason: Consult order Sodium Chloride (0.9 % Sodium Chloride Flush 3 Ml Syringe) 3 ml IVFLUSH QSHIFT [facility] Last Admin: 12/23/22 22:27 Dose: 3 ml Documented By: ROSA Labs 12/24/22 06:03 12/24/22 06:03 Labs: Laboratory Results - last 24 hr 12/24/22 12/24/22 06:03 06:03 MCV 94.8 MCH 31.0 MCHC 32.7 RDW 13.4 Plt Count 197 MPV 10.1 Immature Gran % (Auto) 0.4 Neut % (Auto) 82.4 H Lymph % (Auto) 9.8 L [place] % (Auto) 5.1 Eos % (Auto) 2.0 Baso % (Auto) 0.3 Lymph # (Auto) 1.1 L [place] # (Auto) 0.6 Eos # (Auto) 0.2 Baso # (Auto) 0.0 Abs Immat Gran (auto) 0.05 H Absolute Neuts (auto) 9.6 H Absolute Nucleated RBC 0.000 Nucleated RBC % (auto) 0.0 Anion Gap 11 L Estim Creat Clear Calc 32.2 Estimated GFR 44 Random Glucose 129 H Calcium 9.6 Microbiology Microbiology Results: Microbiology 12/23/22 Unknown Urine Culture - Preliminary Urine Catheterized - Nugent Catheter Culture too young to evaluate. Assessment and Plan (1) Closed fracture of right hip: Status: Acute Plan 87M PMH left temporal CVA, htn, hld, pe/dvt, advanced dementia, epilepsy, gout presented with fall complciated by right hip fracture fall complicated by right hip fracture holding eliquis plan for OR today, 12/24/22 benefits of surgery outweigh risks, would pursue without further work up htn amlodipine, lisinopril, metoprolol epilepsy keppra advanced dementia stable hld statin history of DVT/Pe bridged with lovenox, restart eliquis after surgery mild elevation in troponin likely strain in possible undiagnosed underlying CAD doubt ACS DNR/DNI reason for continued hospitalization:surgery Time Spent With Patient Time: Total time managing care of this patient today ____ minutes. Quality Stroke Does the patient have a stroke diagnosis?: No VTE Prior VTE?: Yes VTE Risk Level:: Medical - moderate - high VTE Device Contraindication: Treatment Not Indicated VTE Drug Contraindication: N/A - Med Ordered
[2022-12-24] MEDS: Enoxaparin Sodium 60 MG/0.6 ML SYRINGE SUBCUT ×2 (10:59→20:48)
[2022-12-24] MEDS: lisinopriL 5 MG TABLET PO (11:02)
[2022-12-24] MEDS: Calcium + Vitamin D 250 MG TABLET 500 MG PO (11:02)
[2022-12-24] MEDS: Multivitamin TABLET 1 TAB PO (11:02)
[2022-12-24] MEDS: amLODIPine Besylate 2.5 MG TABLET 7.5 MG PO (11:02)
[2022-12-24] MEDS: OXcarbazepine 300 MG TABLET PO ×2 (11:02→20:31)
[2022-12-24] MEDS: Metoprolol Tartrate 12.5 MG HALFTAB PO ×2 (11:02→20:31)
[2022-12-24] MEDS: allopurinoL 100 MG TABLET 200 MG PO (11:03)
[2022-12-24] MEDS: levETIRAcetam Oral Soln 500 MG/5 ML PO ×2 (11:03→20:31)
[2022-12-24] MEDS: 0.9 % Sodium Chloride Flush 3 ML SYRINGE IVFLUSH ×2 (11:03→15:52)
[2022-12-24 15:22] VITALS: BP 152/67; PULSE 80; RESP 20; TEMP 36; O2SAT 94
[2022-12-24 19:50] VITALS: BP 156/69; PULSE 101; RESP 20; TEMP 37.7; O2SAT 94
[2022-12-24] MEDS: Acetaminophen 325 MG TABLET 650 MG PO (20:31)
[2022-12-24] MEDS: Atorvastatin Calcium 40 MG TABLET PO (20:31)
--- NOTE | 2022-12-24 21:08 | PC.NURSE ---
T. 99.9, HR 101, prn tylenol and sched meds given, MD Fonseca notified and ordered labs, CXR and urine culture.
[2022-12-24 21:36] LABS: Appearance Urine Cloudy; Color Urine Dark Yellow; Glucose Urine UA Negative (Negative); Leukocyte Esterase Urine Moderate (2+) (Negative); Nitrite Urine Negative (Negative); PH 5.5 (5.0-9.0); Specific Gravity - Urine >= 1.030 (1.005-1.025); UMIC TRIGGER UACC YES; Urine Blood Large (3+) (Negative); Urine Ketones Trace mg/dL (Negative); Urine Protein 300 (3+) mg/dL (Neg-Trace)
[2022-12-24 21:45] LABS: Bacteria Urine Trace (None Seen); RBC Urine >20 /HPF (0-2); UACC Culture Trigger YES; WBC Urine >50 /HPF (0-5)
[2022-12-24 21:59] LABS: Lactic Acid 1.1 mmol/L (0.5-2.0)
[2022-12-25] VITALS (13 sets, daily range): BP systolic 132–182; BP diastolic 63–87; PULSE 75–102; RESP 14–20; TEMP 36.1–36.9; O2SAT 90–100
[2022-12-25] MEDS: cefTRIAXone sodium 1 GM in 0.9 % Sodium Chloride 50 ML IV (05:51)
[2022-12-25] MEDS: Morphine Sulfate 2 MG/ML CARTRIDGE IVPUSH (05:57)
[2022-12-25 06:53] LABS: Hematocrit 41.4 % (42.0-52.0); Hemoglobin 13.4 g/dl (14.0-18.0); Mean Corpuscular HGB Conc 32.4 g/dl (31.0-36.0); Mean Corpuscular Hemoglobin 30.8 pg (27.0-33.0); Mean Corpuscular Volume 95.2 fL (80.0-98.0); Mean Platelet Volume 11.1 fL (9.4-12.4); Platelet Count 174 X10*3/uL (160-400); Red Blood Count 4.35 X10*6/uL (4.60-5.80); Red Cell Distribution Width 13.9 % (11.0-16.0); White Blood Count 10.2 X10*3/uL (4.8-10.8)
--- NOTE | 2022-12-25 07:04 | PM.EVENT ---
Event Note Date of Service: 12/25/22 Event Note: Patient with fever overnight. Already on antibiotics, cultures repeated Time Spent With Patient Time: Total time managing care of this patient today ____ minutes.
[2022-12-25] MEDS: 0.9 % Sodium Chloride Flush 3 ML SYRINGE IVFLUSH ×2 (07:15→13:47)
[2022-12-25 07:18] LABS: Anion Gap 13 (12-20); Blood Urea Nitrogen 34 mg/dL (9-16); Calcium 9.2 mg/dL (8.4-10.2); Carbon Dioxide 24 mmol/L (22-29); Chloride 111 mmol/L (96-108); Creatinine Clr Calc Pharmacy 33.5; Estimated Glomerular Filt Rate 47; Glucose Fasting 104 mg/dL (60-99); Potassium 4.1 mmol/L (3.3-5.1); Sodium 144 mmol/L (135-145)
--- NOTE | 2022-12-25 09:17 | P.CONAN_ITS ---
[facility] Active Problems Active Problems: All Active Problems (Updated 12/23/22 @ 06:13 by Corky Raman MD) Closed fracture of right hip (Acute) Fall (Acute) Fracture of femoral neck, right (Acute) Past Medical History Medical History Altered mental status Bradycardia COPD (chronic obstructive pulmonary disease) Dementia Dysphagia Gout History of pulmonary embolism Hyperlipidemia Hypertension Hyponatremia Kidney disease Metabolic encephalopathy Pneumonia Seizure Functional capacity: bed bound Social History Social History Household Members: Other Housing: Assisted Living Facility Housing Other:: [facility] Do you presently have visiting nurse or other home services: No Unable to assess alcohol history related to: Unknown Patient Tobacco Use Status: Tobacco use Unknown Advance Directives Date on File: 12/03/20 service: No Current occupational status: retired Meds Allergies Allergy/AdvReac Type Severity Reaction Status Date / Time hydrochlorothiazide Allergy Unknown Verified 12/23/22 01:49 niacin Allergy Unknown Verified 12/23/22 01:49 nifedipine Allergy Unknown Verified 12/23/22 01:49 Active Medications: Current Medications Acetaminophen (Acetaminophen 325 Mg Tablet) 650 mg PO Q6H PRN PRN Reason: Pain, Mild (Pain Scale 1-3) Last Admin: 12/24/22 20:31 Dose: 650 mg Allopurinol (Allopurinol 100 Mg Tablet) 200 mg PO DAILY [facility] Last Admin: 12/25/22 08:40 Dose: Not Given Amlodipine Besylate (Amlodipine Besylate 2.5 Mg Tablet) 7.5 mg PO DAILY [facility]; Protocol Last Admin: 12/25/22 08:42 Dose: Not Given Atorvastatin Calcium (Atorvastatin Calcium 40 Mg Tablet) 40 mg PO BEDTIME [facility] Last Admin: 12/24/22 20:31 Dose: 40 mg Bisacodyl (Bisacodyl 10 Mg Supp.Rect) 10 mg ND DAILY PRN PRN Reason: Constipation Calcium Carbonate/Cholecalciferol (Calcium + Vitamin D 250 Mg Tablet) 500 mg PO DAILY [facility] Last Admin: 12/25/22 08:42 Dose: Not Given Ceftriaxone Sodium 1 gm/ (Sodium Chloride) 50 mls @ 100 mls/hr IV Q24H [facility] Last Infusion: 12/25/22 06:30 Dose: Infused Cefazolin Sodium/Dextrose (Ancef) 2 gm in 50 mls @ 100 mls/hr IV PREOP ONE Stop: 12/25/22 13:41 Levetiracetam (Levetiracetam Oral Soln 500 Mg/5 Ml) 500 mg PO BID [facility] Last Admin: 12/25/22 08:42 Dose: Not Given Lisinopril (Lisinopril 5 Mg Tablet) 5 mg PO DAILY [facility]; Protocol Last Admin: 12/25/22 08:42 Dose: Not Given Melatonin (Melatonin 3 Mg Tablet) 6 mg PO BEDTIME PRN PRN Reason: Insomnia Metoprolol Tartrate (Metoprolol Tartrate 12.5 Mg Halftab) 12.5 mg PO BID [facility]; Protocol Last Admin: 12/25/22 08:42 Dose: Not Given Morphine Sulfate (Morphine Sulfate 2 Mg/Ml Cartridge) 2 mg IVPUSH Q4H PRN; Protocol PRN Reason: Pain, Severe (Pain Scale 7-10) Last Admin: 12/25/22 05:57 Dose: 2 mg Multivitamins/Vitamin C (Multivitamin Tablet) 1 tab PO DAILY [facility] Last Admin: 12/25/22 08:42 Dose: Not Given Ondansetron HCl (Ondansetron Hcl 4 Mg/2 Ml Vial) 4 mg IVPUSH Q8H PRN PRN Reason: Nausea and Vomiting Last Admin: 12/23/22 11:57 Dose: 4 mg Oxcarbazepine (Oxcarbazepine 300 Mg Tablet) 300 mg PO BID [facility] Last Admin: 12/25/22 08:42 Dose: Not Given Pharmacy Consult (Consult Rx Perform Med Rec) 1 each MISCELLANE ONCE PRN PRN Reason: Consult order Sodium Chloride (0.9 % Sodium Chloride Flush 3 Ml Syringe) 3 ml IVFLUSH QSHIFT [facility] Last Admin: 12/25/22 07:15 Dose: 3 ml Home Medications Medication Instructions Recorded Confirmed Last Taken Type acetaminophen 325 mg tablet 650 mg PO Q6H PRN Fever Or Pain 12/03/20 12/23/22 Unknown History amlodipine 5 mg tablet 5 mg PO DAILY 12/03/20 12/23/22 Unknown History atorvastatin 40 mg tablet (Lipitor) 40 mg PO BEDTIME 12/03/20 12/23/22 Unknown History bisacodyl 10 mg rectal suppository 10 mg ND DAILY PRN Constipation 12/03/20 07/09/22 Unknown History docusate sodium 100 mg capsule 200 mg PO DAILY 12/03/20 12/23/22 Unknown History (Colace) lisinopril 5 mg tablet 5 mg PO DAILY 12/03/20 12/23/22 Unknown History magnesium hydroxide 400 mg/5 mL 30 ml PO DAILY PRN Constipation 12/03/20 12/23/22 Unknown History oral suspension (Milk of Magnesia) metoprolol tartrate 25 mg tablet 12.5 mg PO BID 12/03/20 12/23/22 Unknown History oxcarbazepine 300 mg tablet 300 mg PO BID 12/03/20 12/23/22 Unknown History sodium phosphates 19 gram-7 118 ml ND DAILY PRN Constipation 12/03/20 12/23/22 Unknown History gram/118 mL enema (Fleet Enema) allopurinol 100 mg tablet 2 tab PO DAILY 06/01/21 12/23/22 Unknown History apixaban 5 mg tablet (Eliquis) 1 tab PO BID 06/01/21 12/23/22 Unknown History amlodipine 2.5 mg tablet 2.5 mg PO DAILY 11/22/22 12/23/22 Unknown History levetiracetam 100 mg/mL oral 500 mg PO BID 11/22/22 12/23/22 Unknown History solution multivitamin 1 tab PO DAILY 11/22/22 12/23/22 Unknown History calcium carbonate 600 mg-vitamin 1 tab PO DAILY 12/23/22 12/23/22 Unknown History D3 10 mcg (400 unit) tablet (Calcium 600 + D(3)) Exam Exam Date and Time: December 25, 2022 0917 Height,Weight and Vital Signs: Height 5 ft 6 in Weight 63.3 kg Last Vital Signs Temp 98.5 F 12/25/22 09:04 Pulse 84 12/25/22 09:04 Resp 20 12/25/22 09:04 BP 149/69 H 12/25/22 09:04 Pulse Ox 96 12/25/22 09:04 O2 Del Method Nasal Cannula 12/25/22 09:04 O2 Flow Rate 2 12/25/22 09:04 Pertinent Lab Results Pertinent Lab Results: Laboratory Tests 12/23/22 12/23/22 12/23/22 01:58 01:58 01:58 WBC Cancelled RBC Cancelled Hgb Cancelled Hct Cancelled MCV Cancelled MCH Cancelled MCHC Cancelled RDW Cancelled Plt Count Cancelled MPV Cancelled Immature Gran % (Auto) Cancelled Neut % (Auto) Cancelled Lymph % (Auto) Cancelled [place] % (Auto) Cancelled Eos % (Auto) Cancelled Baso % (Auto) Cancelled Lymph # (Auto) Cancelled [place] # (Auto) Cancelled Eos # (Auto) Cancelled Baso # (Auto) Cancelled Abs Immat Gran (auto) Cancelled Absolute Neuts (auto) Cancelled Absolute Nucleated RBC Cancelled Nucleated RBC % (auto) Cancelled PT 13.4 H INR 1.2 H Sodium 146 H Potassium 4.3 Chloride 112 H Carbon Dioxide 25 Anion Gap 13 BUN 29 H Creatinine 1.27 Estim Creat Clear Calc 38.0 Estimated GFR 54 Random Glucose 123 H Fasting Glucose Lactic Acid Calcium 9.2 Total Bilirubin 0.6 Direct Bilirubin 0.2 AST 20 ALT 13 Alkaline Phosphatase 119 H Troponin I High Sens Total Protein 7.3 Albumin 3.6 Lipase 31 Urine Color Urine Appearance Urine pH Ur Specific [place] Urine Protein Urine Glucose (UA) Urine Ketones Urine Blood Urine Nitrite Ur Leukocyte Esterase Urine RBC Urine WBC Ur Squamous Epith Cells Urine Bacteria Hyaline Casts COVID-19 ([facility]) COVID-19 Clin Com Blood Type Antibody Screen 12/23/22 12/23/22 12/23/22 01:58 01:58 01:58 WBC 11.4 H RBC 4.52 L Hgb 14.0 Hct 41.6 L MCV 92.0 MCH 31.0 MCHC 33.7 RDW 13.3 Plt Count 213 MPV 9.9 Immature Gran % (Auto) 0.4 Neut % (Auto) 79.5 H Lymph % (Auto) 12.4 L [place] % (Auto) 5.5 Eos % (Auto) 1.9 Baso % (Auto) 0.3 Lymph # (Auto) 1.4 [place] # (Auto) 0.6 Eos # (Auto) 0.2 Baso # (Auto) 0.0 Abs Immat Gran (auto) 0.04 H Absolute Neuts (auto) 9.0 H Absolute Nucleated RBC 0.000 Nucleated RBC % (auto) 0.0 PT INR Sodium Potassium Chloride Carbon Dioxide Anion Gap BUN Creatinine Estim Creat Clear Calc Estimated GFR Random Glucose Fasting Glucose Lactic Acid Calcium Total Bilirubin Direct Bilirubin AST ALT Alkaline Phosphatase Troponin I High Sens 53.9 H D Total Protein Albumin Lipase Urine Color Urine Appearance Urine pH Ur Specific [place] Urine Protein Urine Glucose (UA) Urine Ketones Urine Blood Urine Nitrite Ur Leukocyte Esterase Urine RBC Urine WBC Ur Squamous Epith Cells Urine Bacteria Hyaline Casts COVID-19 ([facility]) Negative COVID-19 Clin Com See Note Blood Type Antibody Screen 12/23/22 12/23/22 12/23/22 02:01 05:40 06:48 WBC RBC Hgb Hct MCV MCH MCHC RDW Plt Count MPV Immature Gran % (Auto) Neut % (Auto) Lymph % (Auto) [place] % (Auto) Eos % (Auto) Baso % (Auto) Lymph # (Auto) [place] # (Auto) Eos # (Auto) Baso # (Auto) Abs Immat Gran (auto) Absolute Neuts (auto) Absolute Nucleated RBC Nucleated RBC % (auto) PT INR Sodium Potassium Chloride Carbon Dioxide Anion Gap BUN Creatinine Estim Creat Clear Calc Estimated GFR Random Glucose Fasting Glucose Lactic Acid Calcium Total Bilirubin Direct Bilirubin AST ALT Alkaline Phosphatase Troponin I High Sens 98.2 H D Total Protein Albumin Lipase Urine Color Yellow Urine Appearance Cloudy Urine pH 7.0 Ur Specific [place] 1.025 Urine Protein 300 (3+) H Urine Glucose (UA) Negative Urine Ketones Trace Urine Blood Negative Urine Nitrite Negative Ur Leukocyte Esterase Small (1+) H Urine RBC 0-2 Urine WBC >50 H Ur Squamous Epith Cells 0-2 Urine Bacteria 4+ Hyaline Casts 0-2 COVID-19 ([facility]) COVID-19 Clin Com Blood Type B Positive Antibody Screen NEGATIVE 12/24/22 12/24/22 12/24/22 06:03 06:03 21:00 WBC 11.7 H RBC 4.45 L Hgb 13.8 L Hct 42.2 MCV 94.8 MCH 31.0 MCHC 32.7 RDW 13.4 Plt Count 197 MPV 10.1 Immature Gran % (Auto) 0.4 Neut % (Auto) 82.4 H Lymph % (Auto) 9.8 L [place] % (Auto) 5.1 Eos % (Auto) 2.0 Baso % (Auto) 0.3 Lymph # (Auto) 1.1 L [place] # (Auto) 0.6 Eos # (Auto) 0.2 Baso # (Auto) 0.0 Abs Immat Gran (auto) 0.05 H Absolute Neuts (auto) 9.6 H Absolute Nucleated RBC 0.000 Nucleated RBC % (auto) 0.0 PT INR Sodium 145 Potassium 4.1 Chloride 109 H Carbon Dioxide 29 Anion Gap 11 L BUN 30 H Creatinine 1.50 H Estim Creat Clear Calc 32.2 Estimated GFR 44 Random Glucose 129 H Fasting Glucose Lactic Acid Calcium 9.6 Total Bilirubin Direct Bilirubin AST ALT Alkaline Phosphatase Troponin I High Sens Total Protein Albumin Lipase Urine Color Dark Yellow Urine Appearance Cloudy Urine pH 5.5 Ur Specific [place] >= 1.030 H Urine Protein 300 (3+) H Urine Glucose (UA) Negative Urine Ketones Trace Urine Blood Large (3+) H Urine Nitrite Negative Ur Leukocyte Esterase Moderate (2+) H Urine RBC >20 H Urine WBC >50 H Ur Squamous Epith Cells 3-5 Urine Bacteria Trace Hyaline Casts 6-10 COVID-19 ([facility]) COVID-19 [employer] Com Blood Type Antibody Screen 12/24/22 12/25/22 12/25/22 21:37 05:25 05:31 WBC 10.2 RBC 4.35 L Hgb 13.4 L Hct 41.4 L MCV 95.2 MCH 30.8 MCHC 32.4 RDW 13.9 Plt Count 174 MPV 11.1 Immature Gran % (Auto) Neut % (Auto) Lymph % (Auto) [place] % (Auto) Eos % (Auto) Baso % (Auto) Lymph # (Auto) [place] # (Auto) Eos # (Auto) Baso # (Auto) Abs Immat Gran (auto) Absolute Neuts (auto) Absolute Nucleated RBC 0.000 Nucleated RBC % (auto) 0.0 PT INR Sodium 144 Potassium 4.1 Chloride 111 H Carbon Dioxide 24 Anion Gap 13 BUN 34 H Creatinine 1.44 H Estim Creat Clear Calc 33.5 Estimated GFR 47 Random Glucose Fasting Glucose 104 H Lactic Acid 1.1 Calcium 9.2 Total Bilirubin Direct Bilirubin AST ALT Alkaline Phosphatase Troponin I High Sens Total Protein Albumin Lipase Urine Color Urine Appearance Urine pH Ur Specific [place] Urine Protein Urine Glucose (UA) Urine Ketones Urine Blood Urine Nitrite Ur Leukocyte Esterase Urine RBC Urine WBC Ur Squamous Epith Cells Urine Bacteria Hyaline Casts COVID-19 ([facility]) COVID-19 [employer] Com Blood Type Antibody Screen Airway Denture: Upper Heart: RRR Lungs: BS distant BL Assessment and Plan Final Anesthetic Review ASA Class: IV Final Preanesthetic Review: Meds/Allgs Chart Reviewed, Consent Obtained/Reviewed, Anes Risks/Benef Reviewed and DNR Form (If Appl.) Patient Risk: High Procedure Risk: Intermediate Anesthetic Plan Anesthetic Plan: GA Disposition: Standard PACU
--- NOTE | 2022-12-25 09:59 | MHC.SHP ---
Pre-Procedural Eval Section A Date of Service: 12/25/22 The patient is an INPATIENT: Yes Changes since office visit: No Cold of Flu in the past 2 weeks, No New Medical Problems, No Changes in Medication and No Patient answered all questions The History & Physical has been completed within 30 days and I have reviewed it.: Yes Section B Chief Complaint: Fall Allergies: Allergies Allergy/AdvReac Type Severity Reaction Status Date / Time hydrochlorothiazide Allergy Unknown Verified 12/23/22 01:49 niacin Allergy Unknown Verified 12/23/22 01:49 nifedipine Allergy Unknown Verified 12/23/22 01:49 Plan I have reviewed the history and physical and performed a pertinent physical examination on my patient. No changes have occurred unless specified. Time Spent With Patient Time: Total time managing care of this patient today ____ minutes.
--- NOTE | 2022-12-25 11:43 | P.BOP_ITS ---
Brief Operative Note Date of Service: 12/25/22 Pre-op diagnosis: Right femoral neck fracture Post-op diagnosis: same Procedure: Right hip hemiarthroplasty Implants: Pierc[place] Accolade 2 #5 127 with + 01/26/52 Surgeon: Andrews Lamb MD Anesthesia: GETA and local Was an Spooler Operator Automatic used for this Procedure?: Yes Spooler Operator Automatic: Anusha Middleton Estimated blood loss (mL): 150 IV fluids (mL): 800 Pathology: other Condition: stable Disposition: PACU
[2022-12-25] MEDS: Acetaminophen 1,000 MG/100 ML PIGGYBACK 400 MG IV (12:19)
[2022-12-25] MEDS: Lactated Ringers 1,000 ML 100 ML IVCONT ×2 (13:49→22:58)
--- NOTE | 2022-12-25 14:01 | P.PNIM_ITS ---
Subjective Subjective Date of Service: 12/25/22 Review of Systems events from last night noted, had repeat blood cultures done for fever, unable to obtain history from patient due to advanced dementia, vital stable this morning. Constitutional unable to obtain review of system Physical Exam Vital Signs: Vital Signs: Last Vital Signs Temp 97.0 F 12/25/22 12:49 Pulse 93 12/25/22 12:49 Resp 18 12/25/22 12:49 BP 145/72 H 12/25/22 12:49 Pulse Ox 94 12/25/22 12:49 O2 Del Method Nasal Cannula 12/25/22 12:49 O2 Flow Rate 2 12/25/22 12:49 BMI result Body Mass Index 22.5 Const: Other: General? nonverbal, frail lethargic,in pain Neck? no JVD. CVS? regular rate rhythm, Respiratory lungs clear to auscultation, no respiratory distress Gastrointestinal abdomen soft, nontender, bowel sounds audible Extremities right pain with movement Neuro? unable to do neuro examination Skin no rash psych poor insight Objective Data Active Medications Acetaminophen (Acetaminophen 325 Mg Tablet) 650 mg PO Q6H PRN PRN Reason: Pain, Mild (Pain Scale 1-3) Last Admin: 12/24/22 20:31 Dose: 650 mg Documented By: LING Allopurinol (Allopurinol 100 Mg Tablet) 200 mg PO DAILY [facility] Last Admin: 12/25/22 08:40 Dose: Not Given Documented By: DEWAYNE Non-Admin Reason: NPO Amlodipine Besylate (Amlodipine Besylate 2.5 Mg Tablet) 7.5 mg PO DAILY [facility]; Protocol Last Admin: 12/25/22 08:42 Dose: Not Given Documented By: DEWAYNE Non-Admin Reason: NPO Atorvastatin Calcium (Atorvastatin Calcium 40 Mg Tablet) 40 mg PO BEDTIME [facility] Last Admin: 12/24/22 20:31 Dose: 40 mg Documented By: LING Bisacodyl (Bisacodyl 10 Mg Supp.Rect) 10 mg [place] DAILY PRN PRN Reason: Constipation Calcium Carbonate/Cholecalciferol (Calcium + Vitamin D 250 Mg Tablet) 500 mg PO DAILY [facility] Last Admin: 12/25/22 08:42 Dose: Not Given Documented By: DEWAYNE Non-Admin Reason: NPO Ceftriaxone Sodium 1 gm/ (Sodium Chloride) 50 mls @ 100 mls/hr IV Q24H [facility] Last Infusion: 12/25/22 06:30 Dose: 9 mls/hr Documented By: LING Lactated Ringer's (Lr) 1,000 mls @ 100 mls/hr IVCONT .Q10H [facility] Last Admin: 12/25/22 13:49 Dose: 100 mls/hr Documented By: DEWAYNE Levetiracetam (Levetiracetam Oral Soln 500 Mg/5 Ml) 500 mg PO BID [facility] Last Admin: 12/25/22 08:42 Dose: Not Given Documented By: DEWAYNE Non-Admin Reason: NPO Lisinopril (Lisinopril 5 Mg Tablet) 5 mg PO DAILY [facility]; Protocol Last Admin: 12/25/22 08:42 Dose: Not Given Documented By: DEWAYNE Non-Admin Reason: NPO Melatonin (Melatonin 3 Mg Tablet) 6 mg PO BEDTIME PRN PRN Reason: Insomnia Metoprolol Tartrate (Metoprolol Tartrate 12.5 Mg Halftab) 12.5 mg PO BID [facility]; Protocol Last Admin: 12/25/22 08:42 Dose: Not Given Documented By: DEWAYNE Non-Admin Reason: NPO Morphine Sulfate (Morphine Sulfate 2 Mg/Ml Cartridge) 2 mg IVPUSH Q4H PRN; Protocol PRN Reason: Pain, Severe (Pain Scale 7-10) Last Admin: 12/25/22 05:57 Dose: 2 mg Documented By: LING Multivitamins/Vitamin C (Multivitamin Tablet) 1 tab PO DAILY [facility] Last Admin: 12/25/22 08:42 Dose: Not Given Documented By: DEWAYNE Non-Admin Reason: NPO Ondansetron HCl (Ondansetron Hcl 4 Mg/2 Ml Vial) 4 mg IVPUSH Q8H PRN PRN Reason: Nausea and Vomiting Last Admin: 12/23/22 11:57 Dose: 4 mg Documented By: MICHAEL Oxcarbazepine (Oxcarbazepine 300 Mg Tablet) 300 mg PO BID [facility] Last Admin: 12/25/22 08:42 Dose: Not Given Documented By: DEWAYNE Non-Admin Reason: NPO Pharmacy Consult (Consult Rx Perform Med Rec) 1 each MISCELLANE ONCE PRN PRN Reason: Consult order Sodium Chloride (0.9 % Sodium Chloride Flush 3 Ml Syringe) 3 ml IVFLUSH [facility] Last Admin: 12/25/22 13:47 Dose: 3 ml Documented By: DEWAYNE Sodium Chloride (0.9 % Sodium Chloride Flush 3 Ml Syringe) [facility] 12/25/22 05:31 12/25/22 05:25 Labs: Laboratory Results - last 24 hr 12/24/22 12/24/22 12/25/22 21:00 21:37 05:25 MCV MCH MCHC RDW Plt Count MPV Absolute Nucleated RBC Nucleated RBC % (auto) Anion Gap 13 Estim Creat Clear Calc 33.5 Estimated GFR 47 Fasting Glucose 104 H Lactic Acid 1.1 Calcium 9.2 Urine Color Dark Yellow Urine Appearance Cloudy Urine pH 5.5 Ur Specific [place] >= 1.030 H Urine Protein 300 (3+) H Urine Glucose (UA) Negative Urine Ketones Trace Urine Blood Large (3+) H Urine Nitrite Negative Ur Leukocyte Esterase Moderate (2+) H Urine RBC >20 H Urine WBC >50 H Ur Squamous Epith Cells 3-5 Urine Bacteria Trace Hyaline Casts 6-10 12/25/22 05:31 MCV 95.2 MCH 30.8 MCHC 32.4 RDW 13.9 Plt Count 174 MPV 11.1 Absolute Nucleated RBC 0.000 Nucleated RBC % (auto) 0.0 Anion Gap Estim Creat Clear Calc Estimated GFR Fasting Glucose Lactic Acid Calcium Urine Color Urine Appearance Urine pH Ur Specific [place] Urine Protein Urine Glucose (UA) Urine Ketones Urine Blood Urine Nitrite Ur Leukocyte Esterase Urine RBC Urine WBC Ur Squamous Epith Cells Urine Bacteria Hyaline Casts Microbiology Microbiology Results: Microbiology 12/23/22 Unknown Urine Culture - Final Urine Catheterized - Nugent Catheter Assessment and Plan (1) Closed fracture of right hip: Status: Acute Plan 87M PMH left temporal CVA, htn, hld, pe/dvt, advanced dementia, epilepsy, gout presented with fall complciated by right hip fracture fall complicated by right hip fracture holding eliquis plan for OR today, benefits of surgery outweigh risks, would pursue without further work up follow blood cultures, urine culture grew >100,000 mixed bacterial donal, leukocytosis resolved follow clinical course, on IV ceftriaxone started 12/23. will place on scheduled analgesics. htn on amlodipine, lisinopril 5 mg, metoprolol 12.5 mg b.i.d. suboptimal blood pressure control likely due to pain will follow BP and adjust medication epilepsy nathanppra advanced dementia stable hld statin history of DVT/Pe bridged with lovenox, restart eliquis after surgery mild elevation in troponin likely strain in possible undiagnosed underlying CAD doubt ACS DNR/DNI reason for continued hospitalization:surgery Time Spent With Patient Time: Total time managing care of this patient today ____ minutes. Quality Stroke Does the patient have a stroke diagnosis?: No VTE Prior VTE?: Yes VTE Risk Level:: Medical - moderate - high VTE Device Contraindication: Treatment Not Indicated VTE Drug Contraindication: N/A - Med Ordered
--- NOTE | 2022-12-25 14:36 | MHC.CM.PN ---
per rounds pt still pending cultures plan return to [facility]
--- NOTE | 2022-12-25 20:38 | PC.NURSE ---
Care assumed at 07:00, patient taken early for surgery, was assessed briefly before leaving, was alert and nonverbal as at baseline, was smiling, eyes open, no response to questions or commands. Patient returned from surgery very lethargic and only arousable to sternal rub / light pain, moves upper extremities in a tense rigid way, grasping gown and towards urinary catheter, telesitter placed. MD aware. Patient had thick yellow/cream secretions in mouth on arrival and mouth was suctioned with effect. Patient had sedation during procedure and observing for patient to become more interactive. Patient was unable to take PO tylenol. Nonverbal signs of pain about 3/10, patient has dysphagia, 1:1 feed, pureed and nectar thick liquids. Was unable to take PO until dinner, patient aroused to voice at that time, opened eyes for sustained period, and when spoon was brought near mouth, he opened mouth and held food in mouth, swallowed it, for about 5-6 bites of pureed food. RN went to obtain tylenol, but patient had fallen back to sleep, and mouth was suctioned, during which he had positive gag and was moving mouth around yankauer. MD notified, continuing to monitor.
--- NOTE | 2022-12-25 23:16 | PM.EVENT ---
Event Note Date of Service: 12/25/22 Event Note: Patient too lethargic to take his p.o. medications. Will convert to IV instead. Time Spent With Patient Time: Total time managing care of this patient today ____ minutes.
[2022-12-26] VITALS (7 sets, daily range): BP systolic 123–164; BP diastolic 64–73; PULSE 72–98; RESP 14–18; TEMP 36.1–37.3; O2SAT 92–97
[2022-12-26] MEDS: Metoprolol Tartrate 5 MG/5 ML VIAL IVPUSH (00:16)
[2022-12-26] MEDS: levETIRAcetam in NaCl (iso-os) 500 MG/100 ML PIGGYBACK 400 MG IV (00:36)
[2022-12-26] MEDS: Morphine Sulfate 2 MG/ML CARTRIDGE IVPUSH ×3 (01:40→17:11)
[2022-12-26 05:48] LABS: MANUAL DIFF FLAG NO
[2022-12-26 05:51] LABS: Basophils Percent Auto 0.2 % (0-2); Eosinophils Absolute Auto 0.1 X10*3/uL (0.0-0.4); Eosinophils Percent Auto 0.8 % (0-4); Hematocrit 35.9 % (42.0-52.0); Hemoglobin 11.5 g/dl (14.0-18.0); Imm Gran Abs Auto 0.03 X10*3/uL (0.00-0.03); Imm Gran Pct Auto 0.3 % (0.0-0.4); Lymphocytes Absolute Auto 1.7 X10*3/uL (1.2-4.9); Lymphocytes Percent Auto 17.1 % (20-40); Mean Corpuscular Hemoglobin 31.2 pg (27.0-33.0); Mean Corpuscular Volume 97.3 fL (80.0-98.0); Mean Platelet Volume 10.5 fL (9.4-12.4); Monocytes Absolute Auto 0.9 X10*3/uL (0.1-1.2); Neutrophils Percent Auto 72.6 % (45-73); Platelet Count 166 X10*3/uL (160-400); Red Blood Count 3.69 X10*6/uL (4.60-5.80); Red Cell Distribution Width 13.7 % (11.0-16.0); White Blood Count 9.6 X10*3/uL (4.8-10.8)
[2022-12-26 06:05] LABS: Anion Gap 17 (12-20); Blood Urea Nitrogen 34 mg/dL (9-16); Calcium 8.8 mg/dL (8.4-10.2); Carbon Dioxide 22 mmol/L (22-29); Chloride 111 mmol/L (96-108); Estimated Glomerular Filt Rate 54; Glucose Fasting 113 mg/dL (60-99); Potassium 4.5 mmol/L (3.3-5.1); Sodium 145 mmol/L (135-145)
[2022-12-26] MEDS: cefTRIAXone sodium 1 GM in 0.9 % Sodium Chloride 50 ML IV (06:17)
--- NOTE | 2022-12-26 07:11 | PC.NURSE ---
Pt s/p right hip fx repair 12/25/22. Upon assessment, pt was lethargic, slightly arousable to voice,and rigid extremities. The pt had SANDY PO meds including Metoprolol and Keppra. This RN notified the hospitalist MD Fonseca of the pt being lethargic and unable to follow commands to take medications. Pt has hx of dysphagia and on pureed diet with nectar thick liquids. One time dose of Metoprolol 5mg IV PUSH and Keppra 500mg IV was ordered. Pt was then put on the teley for one hr per MD Fonseca to moniotr the pt's HR since it was the pt's first time of taking IV Metoprolol. Pt's vital signs were stable after the given dose per JUL. Teley is off pt. Will continue to monitor Pt's BP and HR.
--- NOTE | 2022-12-26 07:45 | HO.POSTANES ---
Post Anesthesia Evaluation Post Anesthesia Evaluation Date of Service: 12/26/22 Vital Signs: Vital Signs Temp Pulse Resp BP Pulse Ox O2 Del Method O2 Flow Rate 12/26/22 04:00 97.0 F 77 17 162/70 H 93 Room Air 12/26/22 00:34 72 156/71 H 97 Nasal Cannula 2 12/25/22 23:50 97.9 F 95 18 164/82 H 95 Nasal Cannula 2 12/25/22 20:34 97.0 F 101 H 18 165/79 H 97 Nasal Cannula 2 Anesthesia: General Endotracheal-GETA Mental Status: Awake Pain Control: Satisfactory Nausea/Vomiting: None Hydration: Adequate Anesthesia-Related Issues: No Anes. Related Issues Comments: limited mentation like preop
--- NOTE | 2022-12-26 08:27 | PM.PNORT ---
Subjective Subjective Date of Service: 12/26/22 Principal diagnosis: POD #1 s/p right hip nile Interval history: Non communicative Physical Exam Vital Signs: Vital Signs: Last Vital Signs Temp 99.2 F 12/26/22 07:46 Pulse 95 12/26/22 07:46 Resp 17 12/26/22 07:46 BP 126/73 12/26/22 07:46 Pulse Ox 95 12/26/22 07:46 O2 Del Method Room Air 12/26/22 07:46 O2 Flow Rate 2 12/26/22 00:34 BMI result Body Mass Index 22.5 Extrem: Other: hip located and leg stright but not following additional commands Dressing c/d/i Procedures Date of Service Date of Service: 12/26/22 Progress Note: A&P Assessment and plan (1) Status post hip hemiarthroplasty: Status: Acute Plan DVT chemo and mechanoprophylaxis PT today Dispo planning Pain appears improved from prior but difficulty to assess. Time Spent With Patient Time: Total time managing care of this patient today ____ minutes. Quality Stroke Does the patient have a stroke diagnosis?: No VTE Prior VTE?: Yes VTE Risk Level:: Medical - moderate - high VTE Device Contraindication: Treatment Not Indicated VTE Drug Contraindication: N/A - Med Ordered
[2022-12-26] MEDS: Acetaminophen 325 MG TABLET 650 MG PO ×3 (09:12→20:15)
[2022-12-26] MEDS: levETIRAcetam Oral Soln 500 MG/5 ML PO ×2 (09:12→20:16)
[2022-12-26] MEDS: lisinopriL 5 MG TABLET PO (09:16)
[2022-12-26] MEDS: allopurinoL 100 MG TABLET 200 MG PO (09:16)
[2022-12-26] MEDS: Metoprolol Tartrate 12.5 MG HALFTAB PO ×2 (09:16→20:15)
[2022-12-26] MEDS: OXcarbazepine 300 MG TABLET PO ×2 (09:16→20:15)
[2022-12-26] MEDS: Multivitamin TABLET 1 TAB PO (09:16)
[2022-12-26] MEDS: amLODIPine Besylate 2.5 MG TABLET 7.5 MG PO (09:16)
[2022-12-26] MEDS: Calcium + Vitamin D 250 MG TABLET 500 MG PO (09:19)
[2022-12-26] MEDS: Lactated Ringers 1,000 ML 100 ML IVCONT (09:23)
[2022-12-26] MEDS: Enoxaparin Sodium 40 MG/0.4 ML SYRINGE SUBCUT (11:55)
--- NOTE | 2022-12-26 15:15 | HO.PM.IMPN ---
Subjective Subjective Date of Service: 12/26/22 Interval History: patient resting comfortably in bed, unable to obtain meaningful history due to underlying dementia. no events overnight receiving IV fluids. Review of Systems unable to obtain due to mental status. Physical Exam Vital Signs: Vital Signs: Last Vital Signs Temp 99.2 F 12/26/22 12:00 Pulse 96 12/26/22 12:00 Resp 18 12/26/22 12:00 BP 123/64 12/26/22 12:00 Pulse Ox 92 12/26/22 12:00 O2 Del Method Room Air 12/26/22 12:00 O2 Flow Rate 2 12/26/22 00:34 BMI result Body Mass Index 22.5 Const: Other: General?? nonverbal, frail , no distress Neck? no JVD. CVS? regular rate rhythm, Respiratory lungs clear to auscultation, no respiratory distress Gastrointestinal abdomen soft, nontender, bowel sounds audible Extremities? right hip dressing in place Neuro? unable to do neuro examination Skin no rash psych poor insight Objective Data Active Medications Acetaminophen (Acetaminophen 325 Mg Tablet) 650 mg PO Q6H PRN PRN Reason: Pain, Mild (Pain Scale 1-3) Last Admin: 12/24/22 20:31 Dose: 650 mg Documented By: LING Acetaminophen (Acetaminophen 325 Mg Tablet) 650 mg PO TID [facility] Last Admin: 12/26/22 09:12 Dose: 650 mg Documented By: JENY Allopurinol (Allopurinol 100 Mg Tablet) 200 mg PO DAILY [facility] [place] Last Admin: 12/26/22 09:16 Dose: 200 mg Documented By: JENY Amlodipine Besylate (Amlodipine Besylate 2.5 Mg Tablet) 7.5 mg PO DAILY [facility]; Protocol Last Admin: 12/26/22 09:16 Dose: 7.5 mg Documented By: JENY Atorvastatin Calcium (Atorvastatin Calcium 40 Mg Tablet) 40 mg PO BEDTIME [facility] [place] Last Admin: 12/25/22 22:15 Dose: Not Given Documented By: AMANDA Non-Admin Reason: pt too lethargic to take PO med Bisacodyl (Bisacodyl 10 Mg Supp.Rect) 10 mg [place] DAILY PRN PRN Reason: Constipation Calcium Carbonate/Cholecalciferol (Calcium + Vitamin D 250 Mg Tablet) 500 mg PO DAILY [facility] [place] Last Admin: 12/26/22 09:19 Dose: 500 mg Documented By: JENY Enoxaparin Sodium (Enoxaparin Sodium 40 Mg/0.4 Ml Syringe) 40 mg SUBCUT Q24H [facility] Last Admin: 12/26/22 11:55 Dose: 40 mg Documented By: JENY Ceftriaxone Sodium 1 gm/ (Sodium Chloride) 50 mls @ 100 mls/hr IV Q24H [facility] [place] Last Infusion: 12/26/22 06:47 Dose: 0 mls/hr Documented By: AMANDA Lactated Ringer's (Lr) 1,000 mls @ 100 mls/hr IVCONT .Q10H [facility] Last Infusion: 12/26/22 09:26 Dose: 0 mls/hr Documented By: JENY Levetiracetam (Levetiracetam Oral Soln 500 Mg/5 Ml) 500 mg PO BID [facility] [place] Last Admin: 12/26/22 09:12 Dose: 500 mg Documented By: JENY Lisinopril (Lisinopril 5 Mg Tablet) 5 mg PO DAILY [facility]; Protocol Last Admin: 12/26/22 09:16 Dose: 5 mg Documented By: JENY Melatonin (Melatonin 3 Mg Tablet) 6 mg PO BEDTIME PRN PRN Reason: Insomnia Metoprolol Tartrate (Metoprolol Tartrate 12.5 Mg Halftab) 12.5 mg PO BID [facility]; Protocol Last Admin: 12/26/22 09:16 Dose: 12.5 mg Documented By: JENY Morphine Sulfate (Morphine Sulfate 2 Mg/Ml Cartridge) 2 mg IVPUSH Q4H PRN; Protocol PRN Reason: Pain, Severe (Pain Scale 7-10) Last Admin: 12/26/22 06:12 Dose: 2 mg Documented By: AMANDA Multivitamins/Vitamin C (Multivitamin Tablet) 1 tab PO DAILY [facility] Last Admin: 12/26/22 09:16 Dose: 1 tab Documented By: JENY Ondansetron HCl (Ondansetron Hcl 4 Mg/2 Ml Vial) 4 mg IVPUSH Q8H PRN PRN Reason: Nausea and Vomiting Last Admin: 12/23/22 11:57 Dose: 4 mg Documented By: MICHAEL Oxcarbazepine (Oxcarbazepine 300 Mg Tablet) 300 mg PO BID [facility] Last Admin: 12/26/22 09:16 Dose: 300 mg Documented By: JENY Pharmacy Consult (Consult Rx Perform Med Rec) 1 each MISCELLANE ONCE PRN PRN Reason: Consult order Sodium Chloride (0.9 % Sodium Chloride Flush 3 Ml Syringe) 3 ml IVFLUSH QSHIFT [facility] [place] Last Admin: 12/26/22 09:17 Dose: Not Given Documented By: JENY Non-Admin Reason: IV Running Sodium Chloride (0.9 % Sodium Chloride Flush 3 Ml Syringe) 3 ml IVFLUSH QSSCFT [facility] Last Admin: 12/26/22 09:17 Dose: Not Given Documented By: JENY Non-Admin Reason: IV Running Labs 12/26/22 05:38 12/26/22 05:38 Labs: Laboratory Results - last 24 hr 12/26/22 12/26/22 05:38 05:38 MCV 97.3 MCH 31.2 MCHC 32.0 RDW 13.7 Plt Count 166 MPV 10.5 Immature Gran % (Auto) 0.3 Neut % (Auto) 72.6 Lymph % (Auto) 17.1 L [place] % (Auto) 9.0 Eos % (Auto) 0.8 Baso % (Auto) 0.2 Lymph # (Auto) 1.7 [place] # (Auto) 0.9 Eos # (Auto) 0.1 Baso # (Auto) 0.0 Abs Immat Gran (auto) 0.03 Absolute Neuts (auto) 7.0 Absolute Nucleated RBC 0.000 Nucleated RBC % (auto) 0.0 Anion Gap 17 Estim Creat Clear Calc 38.0 Estimated GFR 54 Fasting Glucose 113 H Calcium 8.8 Microbiology Microbiology Results: Microbiology 12/24/22 21:37 Blood Culture - Preliminary Blood - Venous No growth after 24 hours. 12/24/22 21:37 Blood Culture - Preliminary Blood - Venous No growth after 24 hours. Assessment and Plan (1) Closed fracture of right hip: Status: Acute Plan 87M PMH left temporal CVA, htn, hld, pe/dvt, advanced dementia, epilepsy, gout presented with fall complciated by right hip fracture fall complicated by right hip fracture postoperative day 1 status post right hip hemiarthroplasty blood cultures no growth times 24 hours, urine culture grew >100,000 mixed bacterial donal, leukocytosis resolved, no fevers will DC IV ceftriaxone hematocrit stable continue scheduled Tylenol and as needed oxy and IV morphine htn good blood pressure control continue amlodipine, lisinopril 5 mg, metoprolol 12.5 mg b.i.d. follow BP. epilepsy keppra advanced dementia stable hld statin history of DVT/PE history of DVT documented in 11/2020 Ortho recommend to resume Eliquis after 48 hours, continue Lovenox sub q mild elevation in troponin likely strain in possible undiagnosed underlying CAD doubt ACS DNR/DNI reason for continued hospitalization: post of right hip surgery Time Spent With Patient Time: Total time managing care of this patient today ____ minutes. Quality Stroke Does the patient have a stroke diagnosis?: No VTE Prior VTE?: Yes VTE Risk Level:: Medical - moderate - high VTE Device Contraindication: Treatment Not Indicated VTE Drug Contraindication: N/A - Med Ordered
[2022-12-26] MEDS: 0.9 % Sodium Chloride Flush 3 ML SYRINGE IVFLUSH ×3 (17:12→23:00)
[2022-12-26] MEDS: Atorvastatin Calcium 40 MG TABLET PO (20:15)
[2022-12-27 02:41] VITALS: BP 165/77; PULSE 82; RESP 16; TEMP 36.6; O2SAT 95
[2022-12-27 07:30] VITALS: BP 165/72; PULSE 88; RESP 18; TEMP 37; O2SAT 95
[2022-12-27] MEDS: 0.9 % Sodium Chloride Flush 3 ML SYRINGE IVFLUSH (07:36)
[2022-12-27] MEDS: levETIRAcetam Oral Soln 500 MG/5 ML PO (09:17)
[2022-12-27] MEDS: allopurinoL 100 MG TABLET 200 MG PO (09:17)
[2022-12-27] MEDS: Calcium + Vitamin D 250 MG TABLET 500 MG PO (09:17)
[2022-12-27] MEDS: Acetaminophen 325 MG TABLET 650 MG PO (09:18)
[2022-12-27] MEDS: Multivitamin TABLET 1 TAB PO (09:18)
[2022-12-27] MEDS: OXcarbazepine 300 MG TABLET PO (09:18)
[2022-12-27] MEDS: amLODIPine Besylate 2.5 MG TABLET 7.5 MG PO (09:18)
[2022-12-27] MEDS: lisinopriL 10 MG TABLET PO (09:19)
--- NOTE | 2022-12-27 09:23 | P.PNOP_ITS ---
Subjective Subjective Date of Service: 12/27/22 Principal diagnosis: POD #1 s/p right hip nile Interval history: POD2 s/p right hip nile. Patient is resting in bed. Nurse at bedside with AM meds. No overnight events. Physical Exam Vital Signs: Vital Signs: Last Vital Signs Temp 98.6 F 12/27/22 07:30 Pulse 88 12/27/22 07:30 Resp 18 12/27/22 07:30 BP 165/72 H 12/27/22 07:30 Pulse Ox 95 12/27/22 07:30 O2 Del Method Room Air 12/27/22 07:30 O2 Flow Rate 2 12/26/22 00:34 BMI result Body Mass Index 22.5 Const: General: cooperative, healthy appearing and no acute distress Resp: Effort & Inspection: normal respiratory effort and able to speak in complete sentences Cardio: Rate: regular rate Peripheral pulses: Peripheral pulses 2+ thro ughout GI: Palpation (GI): Soft to palpation Skin: Lesions: no lesions Rashes: no rashes Extrem: Other: Right hip Aquacel is c/d/i. NVI. Procedures Date of Service Date of Service: 12/27/22 Progress Note: A&P Assessment and plan (1) Status post hip hemiarthroplasty: Status: Acute (2) Closed fracture of right hip: Status: Acute (3) Fracture of femoral neck, right: Status: Acute (4) Fall: Status: Acute Plan Continue pain mgmnt Resume Eliquis for dvt ppx Continue PT for rt hip nile - posterior precautions Dispo planning-PT, pain mgmnt, Stable for d/c from ortho perspective Time Spent With Patient Time: Total time managing care of this patient today ____ minutes. Quality Stroke Does the patient have a stroke diagnosis?: No VTE Prior VTE?: Yes VTE Risk Level:: Medical - moderate - high VTE Device Contraindication: Treatment Not Indicated VTE Drug Contraindication: N/A - Med Ordered
[2022-12-27] MEDS: oxyCODONE HCl Immed Release 5 MG TABLET 2.5 MG PO (09:32)
[2022-12-27] MEDS: Metoprolol Tartrate 12.5 MG HALFTAB PO (09:35)
[2022-12-27 10:27] LABS: Anion Gap 17 (12-20); Blood Urea Nitrogen 32 mg/dL (9-16); Carbon Dioxide 23 mmol/L (22-29); Chloride 110 mmol/L (96-108); Creatinine Clr Calc Pharmacy 43.9; Estimated Glomerular Filt Rate > 60; Glucose Fasting 173 mg/dL (60-99); Potassium 3.6 mmol/L (3.3-5.1); Sodium 146 mmol/L (135-145)
--- NOTE | 2022-12-27 11:22 | P.DS_ITS ---
DS: Providers Provider Date of Service: 12/27/22 Date of admission: 12/23/22 05:44 Primary care physician: AMARILIS MATHEW Consults: 12/23/22 05:56 Consult to Orthopedics Routine Consulting Provider: [facility] Reason for consultation: Right femoral neck fracture DS: Diagnosis Discharge Diagnosis (1) Status post hip hemiarthroplasty: Status: Acute (2) Closed fracture of right hip: Status: Acute (3) Fracture of femoral neck, right: Status: Acute (4) Fall: Status: Acute DS: Summary Hospital Course Hospital Course: Date of Service: 12/23/22 Chief Complaint: Fall This is a 87-year-old male with pertinent history of left temporal CVA, essential hypertension, mixed hyperlipidemia, PE/DVT on Eliquis, advanced dementia (mixed vascular and neurodegenerative), seizure disorder, gout who was sent to the emergency department after an unwitnessed fall.? Unable to obtain history from the patient as he is poor historian.? History obtained from ER provider.? Patient fell around noon, it was not witnessed.? X-ray was obtained which was concerning for hip fracture and he was sent to the ER.? In the emergency department, patient is grimacing in pain.? Nonverbal.? Unable to obtain review of systems. In the ER, imaging with impacted fracture of right femoral neck. hospital course: 87M PMH left temporal CVA, htn, hld, pe/dvt, advanced dementia, epilepsy, gout presented with fall complicated by right hip fracture fall complicated by right hip fracture patient underwent right hip arthroplasty on 12/25, hematocrit drop but stable had good pain control continue Tylenol and oxycodone, blood cultures showed no growth urine culture grew mixed donal, in itially treated with IV ceftriaxone but subsequently discontinued htn noted to have high blood pressure readings therefore dose of lisinopril increased to 10 mg continue, home dose of amlodipine and metoprolol ? epilepsy continue keppra advanced dementia no behavioral issues noted history of DVT/PE ? history of DVT documented in 11/2020, it Eliquis was held for surgery patient treated with Lovenox now will place back on home dose of Eliquis mild elevation in troponin likely strain in possible undiagnosed underlying CAD Time Spent with Patient Time attestation: Total time managing care of this patient today ____ minutes. Discharge coordination time: Greater than 30 minutes Quality: Safe Use of Opioids Does Pt have an Active Cancer Diagnosis on the Problem List?: No Quality: Stroke Does the patient have a stroke diagnosis?: No Physical Exam Vital Signs: Vital Signs: Last Vital Signs Temp 98.6 F 12/27/22 07:30 Pulse 88 12/27/22 07:30 Resp 18 12/27/22 07:30 BP 165/72 H 12/27/22 07:30 Pulse Ox 95 12/27/22 07:30 O2 Del Method Room Air 12/27/22 07:30 O2 Flow Rate 2 12/26/22 00:34 BMI result Body Mass Index 22.5 Const: Other: General?? nonverbal, frail , no distress Neck? no JVD. CVS? regular rate rhythm, Respiratory lungs clear to auscultation, no respiratory distress Gastrointestinal abdomen soft, non tender, bowel sounds audible Extremities? right?hip dressing in place Neuro? unable to do neuro examination Skin no rash DS: Data Data Completed and Pending Pending studies at discharge: Pending at discharge 12/25/22 11:18 Surgical [PTH] Routine Labs on day of discharge: Laboratory Results - last 24 hr 12/27/22 09:32 Sodium 146 H Potassium 3.6 Chloride 110 H Carbon Dioxide 23 Anion Gap 17 BUN 32 H Creatinine 1.10 Estim Creat Clear Calc 43.9 Estimated GFR > 60 Fasting Glucose 173 H Calcium 9.0 Preliminary micro results at discharge 12/24/22 21:37 Blood Culture - Preliminary Blood - Venous No growth after 48 hours. 12/24/22 21:37 Blood Culture - Preliminary Blood - Venous No growth after 48 hours. Discharge Plan Discharge Anticipated Discharge Date/Time: 12/27/22 11:27 Patient Disposition: Xfer SNF Discharge Diagnosis: right femoral neck fracture Referrals: [facility] [Outside] - 1 Week (RETURN TO CENTER FOR RESUMPTION OF DETENTION CARE) Anusha Middleton PA-C [Physician Research Greenhouse Supervisor] - 2 Weeks (01/09/23 3:00 [facility] Anusha Middleton PA-C) AMARILIS MATHEW [Primary Care Provider] - 1 Week Discharge Medications: New lisinopril 10 mg Tablet 10 mg PO DAILY Qty: 30 0RF Protocol: Hold for SBP< HOLD for SBP < : 90 acetaminophen 325 mg Tablet 650 mg PO TID Qty: 30 0RF oxycodone 5 mg Tablet 2.5 mg PO TID Qty: 20 0RF Rx Instructions: Partial Fill upon patient request. Continued amlodipine 5 mg Tablet 5 mg PO DAILY atorvastatin [Lipitor] 40 mg Tablet 40 mg PO BEDTIME oxcarbazepine 300 mg Tablet 300 mg PO BID magnesium hydroxide [Milk of Magnesia] 400 mg/5 mL Suspension 30 ml PO DAILY PRN (Reason: Constipation) bisacodyl 10 mg Suppository 10 mg [place] DAILY PRN (Reason: Constipation) Fleet Enema 19-7 gram/118 mL Enema 118 ml [place] DAILY PRN (Reason: Constipation) docusate sodium [Colace] 100 mg Capsule 200 mg PO DAILY metoprolol tartrate 25 mg Tablet 12.5 mg PO BID allopurinol 100 mg tablet 2 tab PO DAILY Eliquis 5 mg tablet 1 tab PO BID multivitamin Tablet 1 tab PO DAILY amlodipine 2.5 mg tablet 2.5 mg PO DAILY levetiracetam 100 mg/mL Solution 500 mg PO BID calcium carbonate-vitamin D3 [Calcium 600 + D(3)] 600 mg-10 mcg (400 unit) Tablet 1 tab PO DAILY Discontinued acetaminophen 325 mg Tablet 650 mg PO Q6H PRN (Reason: Fever Or Pain) lisinopril 5 mg Tablet 5 mg PO DAILY Discharge Orders: Discharge Order (Routine); Ordered 12/27/22 Ordered By: Damion Kramer Diet: Regular diet Activity on Discharge: Use cane or walker Stand Alone Forms: Patient Portal Discharge page Activity Restrictions/Additional Instructions: * Physical Therapy for Total hip arthroplasty: wbat, posterior precautions, gait training, ROM, strength * Limit stair climbing * No showering, no tub bath-keep dressing clean, dry and intact * No driving x6 weeks * Continue Lovenox x 6 weeks * Follow up with [facility] in 2 weeks: * --you will also have your first out patient PT nikolai on the day of your post op appt-so please plan on being in the office that day for an extended period of time. Care Plan Goals: recommend Tylenol and oxycodone scheduled for 5 days, monitor bowel Health Concerns: hypertension follow BP Plan of Treatment: outpatient follow-up with Orthopedic surgery as above, outpatient follow-up with PCP. Assessment: As above
--- NOTE | 2022-12-27 11:31 | MHC.CM.PN ---
DP: IMM DELIVERED PT HAS BEEN MEDICALLY CLEARED FOR DC BACK TO [facility] FOR RESUMPTION OF LTC. RN AWARE. CENTER NOTIFIED. SON/HCP CESARIO UPDATED VIA TELEPHONE. BLS TRANSPORT BOOKED FOR 2 PM [facility]IA [facility].
[2022-12-27] MEDS: Enoxaparin Sodium 40 MG/0.4 ML SYRINGE SUBCUT (11:38)
--- NOTE | 2023-01-01 10:48 | P.OP_ITS ---
Operative Note Operative Note Date of Service: 12/25/22 Narrative: Date of Service: 12/25/22 Pre-op diagnosis: Right femoral neck fracture Post-op diagnosis: same Procedure: Right hip hemiarthroplasty Implants: [place] Accolade 2 #5 127 with + 8 Surgeon: Andrews Lamb MD Anesthesia: GETA and local Was an [employer] Operator used for this Procedure?: Yes [employer] Operator: Anusha Middleton Estimated blood loss (mL): 150 IV fluids (mL): 800 Pathology: other Condition: stable Disposition: PACU Indications: This is an active developmentally delayed M with a painful right hip fractutre. A lengthy discussion with family resulted in the decision to proceed with hemiarthroplsty. Procedure in detail: Patient was brought to the operative room placed in the lateral decubitus position. All bony prominences were well padded and the was prepped and draped in standard sterile fashion. IV antibiotics per weight were administered and a time-out was called to identify proper site proper procedure proper surgeon. Radiographs were available and confirmed. I began by making a curvilinear incision over the posterolateral aspect of the greater trochanter. Dissection was taken down to the tensor fascia which was incised in line with the incision and a Charnley retractor was placed. The hip was internally rotated and the external rotators were identified. All vessels in the area were cauterized and a full-thickness capsular/external rotator layer was developed in a hockey-stick fashion starting just proximal to the piriformis. This layer was tagged and the displaced femoral neck fracture was identified. Clean-up cuts was performed while protecxtion the posterolateral soft tissues and the head was removed and measured (52 mm) on the back table. I then copiously irrigated the acetabulum and removed all bony fragments. Once this was done I used a cookie cutter to lateralize and a Charnley awl to identify the canal and then sequentially broached up to a 127 deg #5 . I then trialed with a +5 head and a bipolar component matching the femoral head size. I was satisfied with the range of motion and stability and length but wanted to tighten him a little given his risk of poor compliance and dislocation so I placed a +8 and again was satisfied with the motion., Therefore I removed all instrumentation and copiously irrigated. I then placed my final femoral implant and then retrialed. My final bipolar componenet were then placed. I closed the capsular layer with FiberWire and then, after a three minute iodine soak. I performed a layered closure with kathy on skin. The patient was placed in sterile dressing extubated brought to recovery room in stable condition there were no known complications.
== END 2022-12-27 14:49 | disposition skilled nursing facility (03) | DRG 522 ==
LOC: HO.ED 06:13 → HO.EDOVER 06:22 → HO.S3 19:16
PROVIDERS: Internal Medicine; Orthopaedic Surgery; Physician Assistant; Admitting Provider Student in an Organized Health Care Education/Training Program; Emergency Provider Emergency Medicine; PCP Emergency Medicine; Visit Provider Hospitalist
PROC: 0SRR0JA Replacement of Right Hip Joint, Femoral Surface with Synthetic Substitute, Uncemented, Open Approach (ICD-10-PCS; CPT 27125; principal; 2022-12-25 09:40)
DX: S72.001A Fracture of unspecified part of neck of right femur, initial encounter for closed fracture (principal); N39.0 Urinary tract infection, site not specified; I25.10 Atherosclerotic heart disease of native coronary artery without angina pectoris; J44.9 Chronic obstructive pulmonary disease, unspecified; F01.50 Vascular dementia, unspecified severity, without behavioral disturbance, psychotic disturbance, mood disturbance, and anxiety; W19.XXXA Unspecified fall, initial encounter; E78.2 Mixed hyperlipidemia; G40.909 Epilepsy, unspecified, not intractable, without status epilepticus; Z66 Do not resuscitate; Z20.822 Contact with and (suspected) exposure to COVID-19; Z86.711 Personal history of pulmonary embolism; Z79.01 Long term (current) use of anticoagulants; Z79.899 Other long term (current) drug therapy
CPT/HCPCS: 36415; 70450; 71045; 72170; 73502; 73700; 80048; 80053; 81001; 82248; 83605; 83690; 84484; 85025; 85027; 85610; 86850; 86900; 86901; 87040; 87086; 87635; 88304; 88305; 88311; 93005; 97162; 97166; 99285; C1758; C1776; J0131; J0690; J0696; J1650; J1953; J2250; J2270; J2370; J2371; J2405; J2795; J3010

== ENCOUNTER → 2022-12-23 01:52 | Outpatient (BNV) | payer MEDICARE, SELFPAY | PROVIDERS: Admitting Provider Student in an Organized Health Care Education/Training Program; Emergency Provider Emergency Medicine; PCP Emergency Medicine; Visit Provider Internal Medicine Cardiovascular Disease | DX: S72.001A Fracture of unspecified part of neck of right femur, initial encounter for closed fracture (principal); W19.XXXA Unspecified fall, initial encounter | CPT/HCPCS: 93010 ==

== ENCOUNTER → 2022-12-23 02:03 | Outpatient (BNV) | payer MEDICARE, SELFPAY | PROVIDERS: Emergency Provider Emergency Medicine; PCP Emergency Medicine; Visit Provider Student in an Organized Health Care Education/Training Program | DX: S72.001A Fracture of unspecified part of neck of right femur, initial encounter for closed fracture (principal) | CPT/HCPCS: 99222; 99232; 99233; 99239; 99499 ==

== ENCOUNTER → 2022-12-23 05:44 | Outpatient (BNV) | payer MEDICARE, SELFPAY | PROVIDERS: Admitting Provider Student in an Organized Health Care Education/Training Program; Emergency Provider Emergency Medicine; PCP Emergency Medicine; Visit Provider Physician Assistant | DX: S72.001A Fracture of unspecified part of neck of right femur, initial encounter for closed fracture (principal) | CPT/HCPCS: 27236; 99024; 99232 ==

== ENCOUNTER 2023-01-09 12:53 | Outpatient (REF) | payer MEDICARE, SELFPAY | END 2023-01-09 12:54 | disposition home or self-care (01) | LOC: HO.HOSX 12:53 | PROVIDERS: Visit Provider Physician Assistant | DX: Z13.89 Encounter for screening for other disorder (principal) ==